=== PATIENT | female | born 1940 | race Caucasian/White ===

== ENCOUNTER 2016-10-08 20:35 | Emergency (ER) | payer MEDICARE, MEDICAID ==
[2016-10-08] MEDS ORDERED: Ondansetron 4 MG Tab.DIS PO ONE (20:42)
[2016-10-08 20:45] VITALS: BP 156/77
--- NOTE | 2016-10-08 21:03 | EDM.PDOC ---
ED HPI GI/ABDOMINAL - General Chief Complaint: Gastrointestinal Problem Stated Complaint: Vomiting, Nausea Time Seen by Provider: 10/08/16 20:39 Source of Information: Reports: Patient, Family History Limitations: Reports: No limitations - History of Present Illness INITIAL COMMENTS - FREE TEXT/NARRATIVE: This patient is a 76 year old female that presents to the ER. Patient reports that yesterday she was riding in the car and felt nauseated. She reports she vomtied x1. She reports she has had dry heaves since vomiting yesterday. Patient reports that she does have a chronic history of vomiting and nausea. She reports she takes Zofran at home because of this. However, today it did not work. She reports that her only complaint is nausea with dry heaves. She has not had dry heave while in ER. She does have emesis bag with her. Patient denies holman, dizziness, neck pain, stiffness, congestion, drainage, sore throat, cp, soa, abd pain, urinary/bowel changes, rashes, unilateral weaknesses, general weakness. Patient is full alert and oriented. Symptom Onset Date: 10/07/16 Timing/Duration: Reports: Day(s): (1) Severity: mild Associated Symptoms (-Female): Reports: denies other symptoms, nausea/ vomiting. Denies: chest pain, back pain, groin pain, shoulder pain, constipation, diarrhea, bloody stools, fever/chills, loss of appetite, malaise - Related Data Allergies/ADRs: Allergies Allergy/AdvReac Type Severity Reaction Status Date / Time acetaminophen AdvReac Vomiting Verified 10/08/16 21:09 [From Darvocet-N 100] Home Meds: Home Meds Aspirin [Halfprin] 81 mg PO DAILY 06/21/13 [History] Clopidogrel Bisulfate [Clopidogrel] 75 mg PO DAILY 06/21/13 [History] Docusate Sodium [Colace] 200 mg PO BID PRN 06/21/13 [History] Omeprazole 20 mg PO DAILY 06/21/13 [History] Phenytoin Sodium Extended [Dilantin] 100 mg PO BID 06/21/13 [History] Sertraline HCl 100 mg PO DAILY 06/21/13 [History] Furosemide 80 mg PO DAILY 09/09/14 [History] Pregabalin [Lyrica] 100 mg PO BID 09/09/14 [History] atorvaSTATin [Lipitor] 40 mg PO DAILY 09/09/14 [History] Cyanocobalamin (Vitamin B-12) [Vitamin B-12] 1 ml IM Q30D 05/10/15 [History] Nitroglycerin [Nitrostat] 0.4 mg SL Q5M PRN 05/10/15 [History] Ondansetron [Zofran] 4 mg PO Q6H PRN 05/10/15 [History] amLODIPine [Norvasc] 5 mg PO BEDTIME 05/10/15 [History] fentaNYL [Duragesic] 25 mcg TOP Q3D 05/10/15 [History] hydrOXYzine HCl [hydrOXYzine] 25 mg PO Q6H PRN 05/10/15 [History] rOPINIRole HCl [Requip] 0.5 mg PO TID 10/10/15 [History] Acetaminophen/HYDROcodone [[place] 325-5 MG] 1 - 2 tab PO Q4H PRN 11/05/15 [ History] traMADol HCl [Ultram] 50 mg PO Q6H PRN 11/05/15 [History] Budesonide [Pulmicort] 1 vial NEB QID 03/31/16 [History] Formoterol [Perforomist] 1 vial NEB QID PRN 03/31/16 [History] Propranolol HCl [Propranolol HCl ER] 60 mg PO DAILY 03/31/16 [History] Albuterol [Proventil Neb Soln] 1 vial INH Q6HR PRN 07/29/16 [History] Calcium Carb & Citrate/Vit D3 [Calcium + D3 ER Tablet] 1 ea PO DAILY 07/29/16 [ History] Zolpidem Tartrate [Ambien Cr] 12.5 mg PO BEDTIME 07/29/16 [History] Ubidecarenone [Coq-10] 1 cap PO DAILY 08/31/16 [History] Past Medical History Cardiovascular History: Reports: High cholesterol, Hypertension Other Cardiovascular History: pt reports a "heart condition" but unable to recall what it is. Has had a cardiac stent placed, heart cath 10-31-15 due to cp- -medical therapy; Respiratory History: Reports: COPD Other Respiratory History: saw Dr. Prakash on 03-19-16; Pulmonary rehab ordered , PFT done at that time; denies using oxygen at home Gastrointestinal History: Reports: GERD Musculoskeletal History: Reports: Back pain, chronic Other Musculoskeletal History: left knee surgery Neurological History: Reports: Parkinson's, Seizure, Other (see below) Other Neuro History: tremors of nervous system; says she has some dizziness at home, told Dr. Ennis Psychiatric History: Reports: Depression Other Psychiatric History: depression discussed; gets down with the fact that she cannot do what she wants to do; becomes more SOB at home and says it seems that she is not improving in that area; she used to walk outside, has not done that for years; does not go out socially much anymore; "I get down, but I would not do anything to myself." Dermatologic History: Reports: Eczema - Past Surgical History HEENT Surgical History: Reports: Tonsillectomy Other Respiratory Surgeries/Procedures: attended pulmonary rehab in 2015, did 6 visits, last visit 04-24-16; did not return, had the stomach flu and wasn't feeling well to return. Called recently to schedule rehab again; seeing Dr. Prakash in August, wants to get back to exercising. She feels that she is doing less at home. Her Parkinsons makes it difficult to walk up the steps to her apartment. Gets tired if she tries to vacuum. She feels more SOB; she says she eats well, however, she has trouble lifting the spoon to her mouth due to her parkinsons. She has some eye problems, only causes her a problem when she tries to read or when laying in bed, difficult to see plainly. Encouraged to attend pulmonary rehab regularly. Will discuss an OT consult with Dr. Ennis or with OT; GI Surgical History: Reports: Appendectomy, Cholecystectomy Female Surgical History: Reports: section, Hysterectomy Other Neurological Surgeries/Procedures: has had some dizziness at home-- discussed, especially re: safety. to get up slowly, says she has discussed this with Dr. Ennis Musculoskeletal Surgical History: Reports: Other (see below) Other Musculoskeletal Surgeries/Procedures:: 3 back surgeries since 1985 Social & Family History - Tobacco Use Smoking Status *Q: Former Smoker Years of Tobacco use: 57 Used Tobacco, but Quit: Yes Month Tobacco Last Used: 2011 Second Hand Smoke Exposure: Yes - Alcohol Use Days Per Week of Alcohol Use: 0 - Recreational Drug Use Recreational Drug Use: No ED ROS GENERAL - Review of Systems Review Of Systems: See Below Constitutional: Reports: no symptoms HEENT: Reports: No symptoms Respiratory: Reports: No Symptoms Cardiovascular: Reports: No symptoms Endocrine: Reports: no symptoms GI/Abdominal: Reports: Nausea, Vomiting (x1 yesterday, none today. Dry Heaving on occasion today. ). Denies: Abdominal pain, Constipation, Diarrhea : Reports: no symptoms Musculoskeletal: Reports: no symptoms Skin: Reports: no symptoms Neurological: Reports: No Symptoms Psychiatric: Reports: No symptoms Hematologic/Lymphatic: Reports: no symptoms Immunologic: Reports: no symptoms ED EXAM, GI/ABD - Physical Exam Exam: See Below Exam Limited By: No limitations General Appearance: alert, WD/WN, no apparent distress Eyes: bilateral: normal appearance Ears: normal external exam, normal canal, hearing grossly normal, normal TMs Nose: normal inspection, normal mucosa, no blood Throat/Mouth: Normal inspection, Normal lips, Normal gums, Normal oropharynx, Normal voice, No airway compromise Head: atraumatic, normocephalic Neck: normal inspection, supple, non-tender, full range of motion Respiratory/Chest: no respiratory distress, lungs clear, normal breath sounds, no accessory muscle use Cardiovascular: normal peripheral pulses, regular rate, rhythm, no edema, no gallop, no JVD, no murmur, no rub GI/Abdominal: normal bowel sounds, soft, non tender, no organomegaly, no distention, no abnormal bruit, no mass. No: tenderness, distention, guarding, rebound, rigidity, aortic pulsation Back Exam: normal inspection, full range of motion. No: CVA tenderness (L), CVA tenderness (R) Extremities: normal inspection, normal range of motion, non-tender, no pedal edema, normal capillary refill Neurological: alert, oriented, normal cognition Psychiatric: normal affect, normal mood Skin Exam: Warm, Dry, Intact, Normal color, No rash Lymphatic: no adenopathy EKG INTERPRETATION EKG Date: 10/08/16 Time: 20:55 Rhythm: NSR Rate (beats/min): 60 ST-T: normal QT: prolonged Comparison: NA - no prior EKG Course - Vital Signs Last Recorded V/S: Last Vital Signs Temp 98.7 F 10/08/16 20:42 Pulse 68 10/08/16 20:42 Resp 20 10/08/16 20:42 BP 156/77 H 10/08/16 20:42 Pulse Ox 92 L 10/08/16 20:42 - Orders/Labs/Meds Orders: Active Orders 24 hr Category Date Time Status EKG Documentation Completion [RC] STAT Care 10/08/16 20:39 Active Promethazine [Phenergan] 12.5 mg Med 10/08/16 21:14 Active Sodium Chloride 0.9% [Normal Saline] 50 ml IV NOW Medication Orders Promethazine HCl 12.5 mg/ (Sodium Chloride) 50.5 mls @ 100 mls/hr IV NOW STA Stop: 10/08/16 21:44 Labs: Laboratory Tests 10/08/16 10/08/16 10/08/16 Range/Units 21:00 21:05 21:20 WBC 6.8 (5.0-10.0) 10^3/uL RBC 4.61 (4.00-5.50) 10^6/uL Hgb 14.0 (12.0-16.0) g/dL Hct 43.3 (37.0-47.0) % MCV 93.9 (82.0-94.0) fL MCH 30.4 (27.0-32.0) pg MCHC 32.3 L (33.0-38.0) g/dL RDW Coeff of [place] 13.0 (11.0-15.0) % Plt Count 314 (150-400) 10^3/uL Neut % (Auto) 50.5 (35-85) % Lymph % (Auto) 34.3 (10-55) % [place] % (Auto) 12.4 (0-16) % Eos % (Auto) 2.5 (0-5) % Baso % (Auto) 0.3 (0-3) % Neut # (Auto) 3.41 (1.80-7.00) 10^3/uL Lymph # (Auto) 2.32 (1.00-4.80) 10^3/uL [place] # (Auto) 0.84 H (0.00-0.80) 10^3/uL Eos # (Auto) 0.17 (0.00-0.45) 10^3/uL Baso # (Auto) 0.02 10^3/uL Sodium 142 (136-145) mEq/L Potassium 4.1 (3.5-5.0) mEq/L Chloride 106 (98-106) mEq/L Carbon Dioxide 25 (21-32) mmol/L BUN 9 (7-18) mg/dL Creatinine 0.7 (0.6-1.0) mg/dL Est Cr Clr Drug Dosing 49.88 mL/min Estimated GFR (MDRD) > 60 (>=60) mL/min Glucose 119 H (75-99) mg/dL Calcium 8.5 (8.4-10.1) mg/dL Total Bilirubin 0.3 (0.0-1.0) mg/dL AST 23 (15-37) U/L ALT 24 (12-78) U/L Alkaline Phosphatase 224 H (46-116) U/L Troponin I 0.054 (0.00-0.06) ng/mL Total Protein 7.0 (6.4-8.2) g/dL Albumin 3.7 (3.4-5.0) g/dL Urine Color Yellow (YELLOW) Urine Appearance Clear (CLEAR) Urine pH 5.5 (4.5-8.0) Ur Specific [place] 1.018 (1.003-1.020) Urine Protein Negative (NEGATIVE) mg/dL Urine Glucose (UA) Negative (NEGATIVE) mg/dL Urine Ketones Negative (NEGATIVE) mg/dL Urine Occult Blood Small H (NEGATIVE) Urine Nitrite Negative (NEGATIVE) Urine Bilirubin Negative (NEGATIVE) Urine Urobilinogen 0.2 (0.2-1.0) EU/dL Ur Leukocyte Esterase Trace H (NEGATIVE) Urine RBC 0-5 (0-5) /HPF Urine WBC 5-10 H (0-5) /HPF Ur Squamous Epith Cells Few H (NOT SEEN) /HPF Urine Bacteria Occasional H (NOT SEEN) /HPF Urine Mucus Occasional H (NOT SEEN) /HPF Meds: Medications Generic Name Dose Route Start Last Admin Trade Name Freq PRN Reason Stop Dose Admin Promethazine HCl 12.5 mg/ 50.5 mls @ 100 mls/hr 10/08/16 21:14 Sodium Chloride IV 10/08/16 21:44 NOW STA Discontinued Medications Generic Name Dose Route Start Last Admin Trade Name Freq PRN Reason Stop Dose Admin Ceftriaxone Sodium 1 gm 10/08/16 21:31 Rocephin IVPUSH 10/08/16 21:32 ONETIME ONE Ondansetron HCl 4 mg 10/08/16 20:42 10/08/16 21:15 Zofran Odt PO 10/08/16 20:43 Not Given ONETIME ONE Departure - Departure Time of Disposition: 21:32 Disposition: Home, Self-Care 01 Condition: good Clinical Impression: Nausea, UTI, Urinary tract infectious disease Instructions: Nausea and Vomiting, Adult, [id number], Urinary Tract Infection , Adult Forms: ED Department Discharge Additional Instructions: Followup with your primary care provider Return to the ER for worsening of condition or any emergent concerns Bactrim DS 1 pill twice a day for 7 days #14 no refill Increase fluids Take your Zofran at home for nausea - My Orders Last 24 Hours: My Active Orders 10/08/16 20:39 EKG Documentation Completion [RC] STAT 10/08/16 21:14 Promethazine [Phenergan] 12.5 mg Sodium Chloride 0.9% [Normal Saline] 50 ml IV NOW - Assessment/Plan Last 24 Hours: My Active Orders 10/08/16 20:39 EKG Documentation Completion [RC] STAT 10/08/16 21:14 Promethazine [Phenergan] 12.5 mg Sodium Chloride 0.9% [Normal Saline] 50 ml IV NOW Plan: PLEASE SEE RN NOTE FOR PFSH. Patient has no abdominal pain, tenderness, fever, active vomiting, no elevated wbc; therefore will not CT abdomen. Patient reports she does get this frequently and has Zofran at home because of this, but sometimes it does not work per patient. Patient reports she has had phenergan in the past before and it has worked well for her. Patient understands risks with this medication.
[2016-10-08] MEDS ORDERED: Promethazine 12.5 MG in Sodium Chloride 0.9% 50 ML IV STA (21:14)
[2016-10-08 21:23] LABS: CHLORIDE,CL 106 mEq/L (98-106); SODIUM,NA 142 mEq/L (136-145)
[2016-10-08] MEDS ORDERED: cefTRIAXone 1 GM Vial IVPUSH ONE (21:31)
[2016-10-08] MEDS ORDERED: cefTRIAXone 1 GM Vial IM ONE (21:51)
[2016-10-08] MEDS ORDERED: Promethazine 25 MG Tab PO ONE (21:52)
[2016-10-08] MEDS ORDERED: Lidocaine 1% 20 ML MDV ONE (21:53)
[2016-10-08] MEDS ORDERED: Lidocaine 1% 30 ML SDV INJECT ONE (22:10)
== END 2016-10-08 22:26 | disposition home or self-care (01) ==
LOC: CC.ED 20:35
DX: N39.0 Urinary tract infection, site not specified (principal); R11.2 Nausea with vomiting, unspecified; E78.00 Pure hypercholesterolemia, unspecified; I10 Essential (primary) hypertension; K21.9 Gastro-esophageal reflux disease without esophagitis; F32.9 Major depressive disorder, single episode, unspecified; Z98.890 Other specified postprocedural states; Z88.8 Allergy status to other drugs, medicaments and biological substances; Z79.82 Long term (current) use of aspirin; Z79.899 Other long term (current) drug therapy; Z87.891 Personal history of nicotine dependence
CPT/HCPCS: 36415; 80053; 81001; 84484; 85025; 93005; 96372; 99284; A9270; J0696; 93010

== ENCOUNTER 2017-08-02 14:22 | Inpatient (IN) | payer MEDICARE, MEDICAID ==
[2017-08-02 15:29] LABS: CHLORIDE,CL 105 mEq/L (98-106); SODIUM,NA 142 mEq/L (136-145)
[2017-08-02] MEDS ORDERED: Calcium Gluconate 10% 1 GM/10 ML SDV IV ONE (16:00)
[2017-08-02] MEDS ORDERED: Sodium Chloride 0.9% 10 ML Syringe FLUSH PRN (16:25)
[2017-08-02] MEDS ORDERED: Calcium Gluconate 10% 1 GM/10 ML SDV IVPUSH ONE ×2 (16:27→21:31)
[2017-08-02] MEDS ORDERED: Enoxaparin 30 MG/0.3 ML Syringe SUBCUT SCH (16:30)
[2017-08-02] MEDS ORDERED: Docusate Sodium 100 MG Cap PO PRN (16:36)
[2017-08-02] MEDS ORDERED: fentaNYL 25 MCG/HR Transdermal Patch TOP SCH (16:45)
[2017-08-02] MEDS ORDERED: Ondansetron 4 MG Tab.DIS PO PRN (17:30)
[2017-08-02] MEDS: Phenytoin 100 MG Cap.ER PO SCH (19:44)
[2017-08-02] MEDS: Formoterol/Mometasone 200-5 MCG 8.8 GM Inhaler IH SCH (19:44)
[2017-08-02] MEDS: Gabapentin 300 MG Cap PO SCH (19:44)
[2017-08-02] MEDS: Calcium Carbonate/Vitamin D3 1250 MG-200 Unit Tab PO SCH (19:44)
[2017-08-02] MEDS ORDERED: rOPINIRole 1 MG Tab PO SCH (20:00)
[2017-08-02 20:23] LABS: CHLORIDE,CL 106 mEq/L (98-106); SODIUM,NA 143 mEq/L (136-145)
[2017-08-03] MEDS: Pantoprazole 40 MG Tab.CR PO SCH (06:04)
[2017-08-03] MEDS: Aspirin 81 MG Tab.EC PO SCH (07:28)
[2017-08-03] MEDS: atorvaSTATin 20 MG Tab PO SCH (07:28)
[2017-08-03] MEDS: rOPINIRole 0.25 MG Tab PO SCH ×2 (07:28→14:21)
[2017-08-03] MEDS: Phenytoin 100 MG Cap.ER PO SCH ×2 (07:28→19:45)
[2017-08-03] MEDS: Folic Acid 1 MG Tab PO SCH (07:29)
[2017-08-03] MEDS: Calcium Carbonate/Vitamin D3 1250 MG-200 Unit Tab PO SCH ×2 (07:29→19:45)
[2017-08-03] MEDS: Gabapentin 300 MG Cap PO SCH ×2 (07:29→19:45)
[2017-08-03] MEDS: Sertraline 100 MG Tab PO SCH (07:29)
[2017-08-03] MEDS: Formoterol/Mometasone 200-5 MCG 8.8 GM Inhaler IH SCH ×2 (07:31→19:45)
[2017-08-03] MEDS ORDERED: Non-Formulary Medication 1 Each (Potassium [Potassium] 99 MG) PO SCH (08:00)
[2017-08-03 08:09] LABS: CHLORIDE,CL 108 mEq/L (98-106); SODIUM,NA 145 mEq/L (136-145)
[2017-08-03] MEDS ORDERED: Calcium Gluconate 1 GM in Sodium Chloride 0.9% 100 ML IV ONE (08:34)
[2017-08-03] MEDS ORDERED: Budesonide 0.5 MG/2 ML Neb Susp INH PRN (11:53)
[2017-08-03] MEDS ORDERED: Acetaminophen/HYDROcodone 325-5 MG Tab PO PRN (13:00)
[2017-08-03] MEDS: Acetaminophen 325 MG Tab PO PRN (14:21)
[2017-08-03] MEDS ORDERED: Enoxaparin 30 MG/0.3 ML Syringe SUBCUT SCH (16:00)
[2017-08-03] MEDS ORDERED: Tiotropium Inhaler 18 MCG Inhalation Powder Cap Kit of 5 INH SCH (16:00)
[2017-08-03 16:09] LABS: CHLORIDE,CL 109 mEq/L (98-106); SODIUM,NA 144 mEq/L (136-145)
[2017-08-03] MEDS ORDERED: rOPINIRole 1 MG Tab PO SCH (20:00)
[2017-08-03] MEDS ORDERED: Non-Formulary Medication 1 Each (Budesonide/Formoterol 2 INH) INH SCH (20:00)
--- NOTE | 2017-08-03 20:57 | PCM.PN ---
- General Info Date of Service: 08/03/17 Admission Dx/Problem (Free Text): Hypocalcemia Functional Status: Reports: Pain Controlled, Tolerating Diet, Ambulating - Review of Systems General: Reports: Weakness, Fatigue HEENT: Reports: No Symptoms Pulmonary: Denies: Shortness of Breath, Cough Cardiovascular: Denies: Chest Pain, Edema, Lightheadedness Gastrointestinal: Denies: Abdominal Pain, Nausea, Vomiting Genitourinary: Reports: No Symptoms Neurological: Reports: Numbness (feels generalized numbness throughout) - Patient Data Vitals - Most Recent: Last Vital Signs Temp 97.8 F 08/03/17 19:48 Pulse 77 08/03/17 19:48 Resp 20 08/03/17 19:48 BP 122/61 08/03/17 19:48 Pulse Ox 93 L 08/03/17 19:48 Weight - Most Recent: 166 lb 1.6 oz I&O - Last 24 Hours: Intake & Output 08/03/17 08/03/17 08/03/17 06:59 14:59 22:59 Intake Total 220 900 Output Total 300 200 600 Balance -80 -200 300 Lab Results Last 24 Hours: Laboratory Results - last 24 hr 08/03/17 08/03/17 Range/Units 07:55 15:55 Sodium 145 144 (136-145) mEq/L Potassium 3.3 L 3.7 (3.5-5.0) mEq/L Chloride 108 H 109 H (98-106) mEq/L Carbon Dioxide 25 27 (21-32) mmol/L BUN 11 11 (7-18) mg/dL Creatinine 0.6 0.7 (0.6-1.0) mg/dL Est Cr Clr Drug Dosing 57.30 49.11 mL/min Estimated GFR (MDRD) > 60 > 60 (>=60) mL/min Glucose 123 H 111 H (75-99) mg/dL Calcium 6.4 L* 6.6 L* (8.4-10.1) mg/dL Med Orders - Current: Current Medications Acetaminophen (Tylenol) 650 mg PO Q4H PRN PRN Reason: Pain Last Admin: 08/03/17 14:21 Dose: 650 mg Hydrocodone Bitart/Acetaminophen ([place] 325-5 Mg) 1 tab PO Q4H PRN PRN Reason: Pain Aspirin (Halfprin) 81 mg PO DAILY [facility] Last Admin: 08/03/17 07:28 Dose: 81 mg Atorvastatin Calcium (Lipitor) 40 mg PO DAILY [facility] Last Admin: 08/03/17 07:28 Dose: 40 mg Budesonide (Pulmicort) 0.5 mg INH BID PRN PRN Reason: Shortness of Breath Calcium Carbonate (Calcium Carbonate/Vitamin D 1250 Mg-200 Unit) 1 tab PO BID [facility] Last Admin: 08/03/17 19:45 Dose: 1 tab Docusate Sodium (Colace) 200 mg PO BID PRN PRN Reason: Constipation Enoxaparin Sodium (Lovenox) 30 mg SUBCUT DAILY@1600 [facility] Last Admin: 08/03/17 15:13 Dose: 30 mg Folic Acid (Folic Acid) 0.5 mg PO DAILY [facility] Last Admin: 08/03/17 07:29 Dose: 0.5 mg Gabapentin (Neurontin) 300 mg PO BID [facility] Last Admin: 08/03/17 19:45 Dose: 300 mg Mometasone Furoate/Formoterol Fumar (Dulera 200-5 Mcg) 2 puff IH BID [facility] Last Admin: 08/03/17 19:45 Dose: 2 puff Non-Formulary Medication (Potassium [Potassium]) 99 mg PO DAILY [facility] Ondansetron HCl (Zofran Odt) 4 mg PO Q6H PRN PRN Reason: NAUSEA Last Admin: 08/03/17 07:30 Dose: 4 mg Pantoprazole Sodium (Protonix) 40 mg PO ACBREAKFAST [facility] Last Admin: 08/03/17 06:04 Dose: 40 mg Phenytoin Sodium (Phenytoin) 100 mg PO BID [facility] Last Admin: 08/03/17 19:45 Dose: 100 mg Ropinirole HCl (Requip) 0.5 mg PO BID@0800,1500 [facility] Last Admin: 08/03/17 14:21 Dose: 0.5 mg Ropinirole HCl (Requip) 2 mg PO BEDTIME [facility] Last Admin: 08/03/17 19:45 Dose: 2 mg Sertraline HCl (Zoloft) 100 mg PO DAILY [facility] Last Admin: 08/03/17 07:29 Dose: 100 mg Sodium Chloride (Saline Flush) 10 ml FLUSH ASDIRECTED PRN PRN Reason: Keep Vein Open Tiotropium [place] (Spiriva Handihaler) 0 mcg INH 1600 [facility] Last Admin: 08/03/17 15:16 Dose: 1 inhaler Discontinued Medications Calcium Gluconate (Calcium Gluconate) 0.3 gm IV ONETIME ONE Stop: 08/02/17 16:01 Last Admin: 08/02/17 16:11 Dose: 0.3 gm Calcium Gluconate (Calcium Gluconate) 1 gm IVPUSH ONETIME ONE Stop: 08/02/17 16:28 Last Admin: 08/02/17 17:43 Dose: 1 gm Calcium Gluconate (Calcium Gluconate) 1 gm IVPUSH ONETIME ONE Stop: 08/02/17 21:32 Last Admin: 08/02/17 22:35 Dose: 1 gm Enoxaparin Sodium (Lovenox) 30 mg SUBCUT Q24H [facility] Last Admin: 08/02/17 17:41 Dose: 30 mg Fentanyl (Duragesic) 25 mcg TOP Q3D [facility] Stop: 08/03/17 00:13 Last Admin: 08/03/17 01:00 Dose: Not Given Calcium Gluconate 1 gm/ Sodium (Chloride) 110 mls @ 100 mls/hr IV NOW ONE Stop: 08/03/17 09:39 Last Admin: 08/03/17 09:27 Dose: 100 mls/hr Calcium Gluconate 1.5 gm/ (Sodium Chloride) 115 mls @ 100 mls/hr IV NOW STA Stop: 08/03/17 18:11 Last Admin: 08/03/17 17:18 Dose: 100 mls/hr Non-Formulary Medication (Budesonide/Formoterol) 2 inh INH BID [facility] Ropinirole HCl (Requip) 1 mg PO BEDTIME [facility] Last Admin: 08/02/17 19:43 Dose: 1 mg - Exam General: Alert, Oriented HEENT: Mucous Membr. Moist/[place] Neck: Supple Lungs: Clear to Auscultation, Normal Respiratory Effort Cardiovascular: Regular Rate, Regular Rhythm GI/Abdominal Exam: Normal Bowel Sounds, Soft, Non-Tender Extremities: Normal Inspection, No Pedal Edema Skin: Warm, Dry Neurological: No New Focal Deficit - Problem List & Annotations (1) Hypocalcemia SNOMED Code(s): 8480938 Code(s): E83.51 - HYPOCALCEMIA Status: Acute Priority: High Current Visit: Yes - Problem List Review Problem List Initiated/Reviewed/Updated: Yes - My Orders Last 24 Hours: My Active Orders 08/03/17 11:53 Budesonide [Pulmicort] 0.5 mg INH BID PRN 08/03/17 13:00 Acetaminophen/HYDROcodone [[place] 325-5 MG] 1 tab PO Q4H PRN 08/03/17 13:12 Acetaminophen [Tylenol] 650 mg PO Q4H PRN 08/04/17 05:17 CMP [COMPREHENSIVE METABOLIC PN,CMP] [CHEM] Routine - Assessment Assessment:: hypocalcemia - Plan Plan:: Patient states still feeling numb all over still. Feels weak. Denies shortness of breath or muscle cramping. Calcium still low today at 6.4, has received 2.3 gm of IV calcium gluconate thus far in addition to oral calcium. Other labs are stable. Appetite still poor. Will give additional 1 gm of Calcium, repeat labs at 4. Will follow closely as remains yet symptomatic. Inappropriate for discharge due to ongoing hypocalcemia.
[2017-08-04] MEDS: Acetaminophen 325 MG Tab PO PRN (00:48)
[2017-08-04] MEDS: Pantoprazole 40 MG Tab.CR PO SCH (06:09)
[2017-08-04 07:21] LABS: CHLORIDE,CL 108 mEq/L (98-106); SODIUM,NA 144 mEq/L (136-145)
[2017-08-04] MEDS: atorvaSTATin 20 MG Tab PO SCH (07:21)
[2017-08-04] MEDS: Gabapentin 300 MG Cap PO SCH (07:21)
[2017-08-04] MEDS: Sertraline 100 MG Tab PO SCH (07:22)
[2017-08-04] MEDS: rOPINIRole 0.25 MG Tab PO SCH (07:22)
[2017-08-04] MEDS: Calcium Carbonate/Vitamin D3 1250 MG-200 Unit Tab PO SCH (07:23)
[2017-08-04] MEDS: Aspirin 81 MG Tab.EC PO SCH (07:23)
[2017-08-04] MEDS: Phenytoin 100 MG Cap.ER PO SCH (07:23)
[2017-08-04] MEDS: Formoterol/Mometasone 200-5 MCG 8.8 GM Inhaler IH SCH (07:25)
[2017-08-04] MEDS: Folic Acid 1 MG Tab PO SCH (07:34)
[2017-08-04 08:27] VITALS: BP 140/78
--- NOTE | 2017-08-05 13:58 | PCM.DCSUM1 ---
Discharge Summary - Hospital Course Free Text/Narrative:: Patient admitted by Dr. Ennis with hypocalcemia. Presented to the clinic with complaints of numbness all over for 3 days. Not really feeling weak, just numb. Daughter had felt she was more short of breath than usual and noted more activity intolerance. She had a work up in the clinic and was found to have a calcium of 5.9. Admitted for IV calcium replacement. - Discharge Data Discharge Date: 08/04/17 Discharge Disposition: Home, Self-Care 01 Condition: Good - Discharge Diagnosis/Problem(s) (1) Hypocalcemia SNOMED Code(s): 7586022 ICD Code: E83.51 - HYPOCALCEMIA Status: Acute Priority: High - Patient Summary/Data Complications: none Hospital Course: Patient is feeling good today. States numbness is gone. She has been ambulating short distances around the room, tolerating well. Appetite has returned. She has had no cardiac/telemetry changes. Patient was given a total of 3.3 gm of IV calcium, in addition to oral, over the last 2 days, now calcium up to 7.4. Medications were thoroughly checked while she was here due to miscommunication between clinic/hospital/pharmacy and public health. Daughter states she doesn't take her meds accurately. Will stop her pulmicort inhalers and nebs as she is on Symbicort. Stop Lyrica and continue gabapentin. Stop Tramadol due to history of seizures. Increase her oral calcium with vitamin D to TID. - Patient Instructions Diet: Usual Diet as Tolerated Activity: As Tolerated - Discharge Plan Prescriptions/Med Rec: Calcium Carbonate/Vitamin D3 [Calcium Carbonate/Vitamin D 1250 MG-200 Unit] 1 tab PO TID #90 tablet Home Medications: Home Meds Aspirin [Halfprin] 81 mg PO DAILY 06/21/13 [History] Docusate Sodium [Colace] 200 mg PO BID PRN 06/21/13 [History] Omeprazole 20 mg PO DAILY 06/21/13 [History] Phenytoin Sodium Extended [Dilantin] 100 mg PO BID 06/21/13 [History] Sertraline HCl 100 mg PO BEDTIME 06/21/13 [History] Furosemide 80 mg PO DAILY 09/09/14 [History] atorvaSTATin [Lipitor] 40 mg PO BEDTIME 09/09/14 [History] Nitroglycerin [Nitrostat] 0.4 mg SL Q5M PRN 05/10/15 [History] Ondansetron [Zofran] 4 mg PO Q6H PRN 05/10/15 [History] amLODIPine [Norvasc] 5 mg PO BEDTIME 05/10/15 [History] rOPINIRole HCl [Requip] 0.5 mg PO BID 10/10/15 [History] Acetaminophen/HYDROcodone [[place] 325-5 MG] 1 - 2 tab PO Q4H PRN 11/05/15 [ History] Albuterol [Proventil Neb Soln] 1 vial INH Q6HR PRN 07/29/16 [History] Cyanocobalamin (Vitamin B12) [Vitamin B12] 500 mcg PO DAILY 08/02/17 [History] Folic Acid 400 mcg PO DAILY 08/02/17 [History] Gabapentin [Neurontin] 300 mg PO BID 08/02/17 [History] Potassium 99 mg PO DAILY 08/02/17 [History] rOPINIRole HCl [Requip] 1 mg PO BEDTIME 08/02/17 [History] Budesonide [Pulmicort] 1 inh INH BID PRN 08/03/17 [History] Budesonide/Formoterol [Symbicort 160-4.5 MCG] 2 inh INH BID 08/03/17 [History] Calcium Carbonate/Vitamin D3 [Calcium Carbonate/Vitamin D 1250 MG-200 Unit] 1 tab PO TID #90 tablet 08/04/17 [Rx] Patient Handouts: Hypocalcemia, Adult Referrals: Mikael Ennis MD [Primary Care Provider] - (Follow up with Dr. Ennis in one week. Labs prior to visit) - Discharge Summary/Plan Comment DC Time >30 min.: No Discharge Summary/Plan Comment: Discharge home Stop pulmicort inhaler and nebs continue Symbicort Stop Lyrica Stop Tramadol Increase calcium with vitamin D to TID Follow up with Dr. Ennis in a week and have labs done to recheck calcium prior to visit - General Info Date of Service: 08/04/17 Admission Dx/Problem (Free Text: Hypocalcemia Functional Status: Reports: Pain Controlled, Tolerating Diet, Ambulating - Review of Systems General: Denies: Fever, Weakness, Fatigue HEENT: Reports: No Symptoms Pulmonary: Reports: Shortness of Breath. Denies: Cough, Sputum Cardiovascular: Denies: Chest Pain, Edema, Lightheadedness Gastrointestinal: Denies: Abdominal Pain, Nausea, Vomiting Genitourinary: Denies: Dysuria Musculoskeletal: Reports: No Symptoms Skin: Reports: No Symptoms Neurological: Denies: Numbness, Weakness - Patient Data Vitals - Most Recent: Last Vital Signs Temp 96.5 F 08/04/17 08:00 Pulse 73 08/04/17 08:00 Resp 20 08/04/17 08:00 BP 140/78 08/04/17 08:00 Pulse Ox 90 L 08/04/17 09:10 Weight - Most Recent: 166 lb 1.6 oz Med Orders - Current: Current Medications Discontinued Medications Acetaminophen (Tylenol) 650 mg PO Q4H PRN PRN Reason: Pain Last Admin: 08/04/17 00:48 Dose: 650 mg Hydrocodone Bitart/Acetaminophen ([place] 325-5 Mg) 1 tab PO Q4H PRN PRN Reason: Pain Aspirin (Halfprin) 81 mg PO DAILY [facility] Last Admin: 08/04/17 07:23 Dose: 81 mg Atorvastatin Calcium (Lipitor) 40 mg PO DAILY [facility] Last Admin: 08/04/17 07:21 Dose: 40 mg Budesonide (Pulmicort) 0.5 mg INH BID PRN PRN Reason: Shortness of Breath Last Admin: 08/04/17 07:24 Dose: 0.5 mg Calcium Carbonate (Calcium Carbonate/Vitamin D 1250 Mg-200 Unit) 1 tab PO BID [facility] Last Admin: 08/04/17 07:23 Dose: 1 tab Calcium Gluconate (Calcium Gluconate) 0.3 gm IV ONETIME ONE Stop: 08/02/17 16:01 Last Admin: 08/02/17 16:11 Dose: 0.3 gm Calcium Gluconate (Calcium Gluconate) 1 gm IVPUSH ONETIME ONE Stop: 08/02/17 16:28 Last Admin: 08/02/17 17:43 Dose: 1 gm Calcium Gluconate (Calcium Gluconate) 1 gm IVPUSH ONETIME ONE Stop: 08/02/17 21:32 Last Admin: 08/02/17 22:35 Dose: 1 gm Docusate Sodium (Colace) 200 mg PO BID PRN PRN Reason: Constipation Enoxaparin Sodium (Lovenox) 30 mg SUBCUT Q24H [facility] Last Admin: 02/26/18 17:41 Dose: 30 mg Enoxaparin Sodium (Lovenox) 30 mg SUBCUT DAILY@1600 [facility] Last Admin: 08/03/17 15:13 Dose: 30 mg Fentanyl (Duragesic) 25 mcg TOP Q3D [place] Stop: 08/03/17 00:13 Last Admin: 08/03/17 01:00 Dose: Not Given Folic Acid (Folic Acid) 0.5 mg PO DAILY [facility] Last Admin: 08/04/17 07:34 Dose: 0.5 mg Gabapentin (Neurontin) 300 mg PO BID [facility] Last Admin: 08/04/17 07:21 Dose: 300 mg Calcium Gluconate 1 gm/ Sodium (Chloride) 110 mls @ 100 mls/hr IV NOW ONE Stop: 08/03/17 09:39 Last Admin: 08/03/17 09:27 Dose: 100 mls/hr Calcium Gluconate 1.5 gm/ (Sodium Chloride) 115 mls @ 100 mls/hr IV NOW STA Stop: 08/03/17 18:11 Last Admin: 08/03/17 17:18 Dose: 100 mls/hr Mometasone Furoate/Formoterol Fumar (Dulera 200-5 Mcg) 2 puff IH BID [facility] Last Admin: 08/04/17 07:25 Dose: 2 puff Non-Formulary Medication (Potassium [Potassium]) 99 mg PO DAILY [facility] Non-Formulary Medication (Budesonide/Formoterol) 2 inh INH BID [facility] Ondansetron HCl (Zofran Odt) 4 mg PO Q6H PRN PRN Reason: NAUSEA Last Admin: 08/03/17 07:30 Dose: 4 mg Pantoprazole Sodium (Protonix) 40 mg PO ACBREAKFAST [facility] Last Admin: 08/04/17 06:09 Dose: 40 mg Phenytoin Sodium (Phenytoin) 100 mg PO BID [facility] Last Admin: 08/04/17 07:23 Dose: 100 mg Ropinirole HCl (Requip) 0.5 mg PO BID@0800,1500 [facility] Last Admin: 08/04/17 07:22 Dose: 0.5 mg Ropinirole HCl (Requip) 1 mg PO BEDTIME [facility] Last Admin: 08/02/17 19:43 Dose: 1 mg Ropinirole HCl (Requip) 2 mg PO BEDTIME [facility] Last Admin: 08/03/17 19:45 Dose: 2 mg Sertraline HCl (Zoloft) 100 mg PO DAILY [facility] Last Admin: 08/04/17 07:22 Dose: 100 mg Sodium Chloride (Saline Flush) 10 ml FLUSH ASDIRECTED PRN PRN Reason: Keep Vein Open Tiotropium Pioneer (Spiriva Handihaler) 0 mcg INH 1600 [facility] Last Admin: 08/03/17 15:16 Dose: 1 inhaler - Exam General: Reports: Alert, Oriented HEENT: Reports: Mucous Membr. Moist/[place] Neck: Reports: Supple Lungs: Reports: Clear to Auscultation, Normal Respiratory Effort Cardiovascular: Reports: Regular Rate, Regular Rhythm GI/Abdominal Exam: Normal Bowel Sounds, Soft, Non-Tender Extremities: Normal Inspection, No Pedal Edema Skin: Reports: Warm, Dry Neurological: Reports: No New Focal Deficit *Q Meaningful Use (DIS) - VTE *Q VTE Criteria *Q: - Stroke *Q Stroke Criteria *Q: - AMI *Q AMI Criteria *Q:
== END 2017-08-04 11:30 | disposition home or self-care (01) | DRG 641 ==
LOC: CC.FCMC 14:22 → CC.MS 14:22 → UNDOADMIN 15:08 → CC.MS 15:08
PROVIDERS: ADMIT Family Medicine; ATTEND Family Medicine
DX: E83.51 Hypocalcemia (principal); R20.0 Anesthesia of skin; R06.02 Shortness of breath; J44.9 Chronic obstructive pulmonary disease, unspecified; F32.9 Major depressive disorder, single episode, unspecified; K21.9 Gastro-esophageal reflux disease without esophagitis; E78.5 Hyperlipidemia, unspecified; I10 Essential (primary) hypertension; G47.00 Insomnia, unspecified; M16.9 Osteoarthritis of hip, unspecified; M17.10 Unilateral primary osteoarthritis, unspecified knee; M81.0 Age-related osteoporosis without current pathological fracture; R25.1 Tremor, unspecified; Z88.0 Allergy status to penicillin; Z88.2 Allergy status to sulfonamides; Z88.8 Allergy status to other drugs, medicaments and biological substances; Z79.82 Long term (current) use of aspirin; Z79.899 Other long term (current) drug therapy; Z95.5 Presence of coronary angioplasty implant and graft; Z87.891 Personal history of nicotine dependence
CPT/HCPCS: 36415; 71046; 72040; 80053; 82607; 83735; 83880; 84443; 84484; 85025; 85379; 93005; J0610; 80048; 82306; 84100; 93010; A9270-GY; J1650; J7050

== ENCOUNTER 2017-12-27 20:22 | Emergency (ER) | payer MEDICARE, MEDICAID ==
[2017-12-27 20:36] VITALS: BP 186/84
--- NOTE | 2017-12-27 21:03 | EDM.PDOC ---
ED HPI GENERAL MEDICAL PROBLEM - General Chief Complaint: Head Injury Stated Complaint: fall with head injury Time Seen by Provider: 12/27/17 20:45 Source of Information: Reports: Patient History Limitations: Reports: No Limitations - History of Present Illness INITIAL COMMENTS - FREE TEXT/NARRATIVE: Was brought in by EMS after fall. Was leaving daughters house when she fell and hit the floor. She thinks that she was able to grab onto the car before falling to the ground to slow her some. She does complain of pain to the shoulders bilaterally, knees, and has a hematoma to the right forehead. Small abrasions to the right forehead, right knee and small one to the right hand. She did not lose consciousness. Location: Reports: Head, Upper Extremity, Left, Upper Extremity, Right, Lower Extremity, Left, Lower Extremity, Right Quality: Reports: Throbbing Worsens with: Reports: Movement Treatments STEEL FABRICATOR: Reports: Other (see below) Other Treatments STEEL FABRICATOR: towel to area for bleeding Headache Pain Score (Numeric/FACES): 9 Bilateral Shoulder Pain Score (Numeric/FACES): 9 - Related Data Allergies Allergy/AdvReac Type Severity Reaction Status Date / Time ketorolac [From Toradol] Allergy Vomiting Verified 12/27/17 20:38 Penicillins Allergy Rash Verified 12/27/17 20:38 propoxyphene Allergy Vomiting Verified 12/27/17 20:38 [From Darvocet-N 100] Sulfa (Sulfonamide Allergy Rash Verified 12/27/17 20:38 Antibiotics) Home Meds: Home Meds Aspirin [Halfprin] 81 mg PO DAILY 06/21/13 [History] Docusate Sodium [Colace] 200 mg PO BID PRN 06/21/13 [History] Omeprazole 20 mg PO DAILY 06/21/13 [History] Phenytoin Sodium Extended [Dilantin] 100 mg PO BID 06/21/13 [History] Sertraline HCl 100 mg PO BEDTIME 06/21/13 [History] Furosemide 80 mg PO DAILY 09/09/14 [History] atorvaSTATin [Lipitor] 40 mg PO BEDTIME 09/09/14 [History] Nitroglycerin [Nitrostat] 0.4 mg SL Q5M PRN 05/10/15 [History] Ondansetron [Zofran] 4 mg PO Q6H PRN 05/10/15 [History] amLODIPine [Norvasc] 5 mg PO BEDTIME 05/10/15 [History] rOPINIRole HCl [Requip] 0.5 mg PO BID 10/10/15 [History] Acetaminophen/HYDROcodone [[place] 325-5 MG] 1 - 2 tab PO Q4H PRN 11/05/15 [ History] Albuterol [Proventil Neb Soln] 1 vial INH Q6HR PRN 07/29/16 [History] Cyanocobalamin (Vitamin B12) [Vitamin B12] 500 mcg PO DAILY 08/02/17 [History] Folic Acid 400 mcg PO DAILY 08/02/17 [History] Gabapentin [Neurontin] 300 mg PO BID 08/02/17 [History] Potassium 99 mg PO DAILY 08/02/17 [History] rOPINIRole HCl [Requip] 1 mg PO BEDTIME 08/02/17 [History] Budesonide [Pulmicort] 1 inh INH BID PRN 08/03/17 [History] Budesonide/Formoterol [Symbicort 160-4.5 MCG] 2 inh INH BID 08/03/17 [History] Calcium Carbonate/Vitamin D3 [Calcium Carbonate/Vitamin D 1250 MG-200 Unit] 1 tab PO TID #90 tablet 08/04/17 [Rx] Past Medical History Cardiovascular History: Reports: High Cholesterol, Hypertension Other Cardiovascular History: pt reports a "heart condition" but unable to recall what it is. Has had a cardiac stent placed, heart cath 10-31-15 due to cp- -medical therapy; Respiratory History: Reports: Asthma, COPD Other Respiratory History: saw Dr. Prakash on 03-19-16; Pulmonary rehab ordered , PFT done at that time; denies using oxygen at home Gastrointestinal History: Reports: GERD Musculoskeletal History: Reports: Back Pain, Chronic Other Musculoskeletal History: left knee surgery Neurological History: Reports: Parkinson's, Seizure, Other (See Below) Other Neuro History: tremors of nervous system; says she has some dizziness at home, told Dr. Ennis Psychiatric History: Reports: Depression Other Psychiatric History: depression discussed; gets down with the fact that she cannot do what she wants to do; becomes more SOB at home and says it seems that she is not improving in that area; she used to walk outside, has not done that for years; does not go out socially much anymore; "I get down, but I would not do anything to myself." Dermatologic History: Reports: Eczema - Past Surgical History HEENT Surgical History: Reports: Tonsillectomy Cardiovascular Surgical History: Reports: Other (See Below) Other Respiratory Surgeries/Procedures: attended pulmonary rehab in 2015, did 6 visits, last visit 04-24-16; did not return, had the stomach flu and wasn't feeling well to return. Called recently to schedule rehab again; seeing Dr. Prakash in August, wants to get back to exercising. She feels that she is doing less at home. Her Parkinsons makes it difficult to walk up the steps to her apartment. Gets tired if she tries to vacuum. She feels more SOB; she says she eats well, however, she has trouble lifting the spoon to her mouth due to her parkinsons. She has some eye problems, only causes her a problem when she tries to read or when laying in bed, difficult to see plainly. Encouraged to attend pulmonary rehab regularly. Will discuss an OT consult with Dr. Ennis or with OT; GI Surgical History: Reports: Appendectomy, Cholecystectomy Female Surgical History: Reports: Section, Hysterectomy Musculoskeletal Surgical History: Reports: Knee Replacement, Other (See Below) Social & Family History - Family History Family Medical History: Noncontributory - Caffeine Use Caffeine Use: Reports: Soda ED ROS GENERAL - Review of Systems Review Of Systems: See Below Constitutional: Reports: No Symptoms HEENT: Reports: Other (hematoma to the right forehead) Respiratory: Reports: No Symptoms Cardiovascular: Reports: No Symptoms GI/Abdominal: Reports: No Symptoms Musculoskeletal: Reports: Shoulder Pain (bilaterally), Other (knee pain bilaterally) Skin: Reports: Other (abrasion to the right forehead.) Neurological: Reports: Headache. Denies: Confusion ED EXAM, HEAD INJURY - Physical Exam Exam: See Below Exam Limited By: No Limitations General Appearance: Alert, Moderate Distress Head: Normocephalic, Facial Abrasions (above the right forehead.) Ears: Normal External Exam, Normal Canal Nose: Normal Inspection Throat/Mouth: Normal Inspection, Normal Oropharynx Neck: Non-Tender, Normal Inspection Respiratory: No Respiratory Distress, Lungs Clear Cardiovascular: Regular Rate, Rhythm, No Edema GI/Abdominal Exam: Normal Bowel Sounds, Soft, Non-Tender Back Exam: Normal Inspection Extremities: Normal Inspection, Other (small abrasion to the right knee that is not bleeding. Has some discomfort with flexing knees bilaterally. Shoulders hurt with ROM no bruising or open areas noted.) Neurologic: Alert, Normal Mood/Affect, Oriented x 3 Skin: Normal Color, Warm/Dry - Sana Coma Score Best Eye Response (Sana): (4) Open Spontaneously Best Verbal Response (Sana): (5) Oriented Best Motor Response (Sana): (6) Obeys Commands Course - Vital Signs Last Recorded V/S: Last Vital Signs Temp 97.3 F 12/27/17 20:23 Pulse 91 12/27/17 20:23 Resp 16 12/27/17 20:23 BP 186/84 H 12/27/17 20:23 Pulse Ox 92 L 12/27/17 20:23 - Orders/Labs/Meds Orders: Active Orders 24 hr Category Date Time Status Head wo Cont [CT] Stat Exams 12/27/17 20:30 Taken Shoulder Comp Lt [CR] Stat Exams 12/27/17 20:30 Taken Shoulder Comp Rt [CR] Stat Exams 12/27/17 20:48 Taken - Re-Assessments/Exams Free Text/Narrative Re-Assessment/Exam: 12/27/17 21:00 In to discuss that no fractures are noted and no bleeding noted to brain. Will discharge with daughter. Departure - Departure Time of Disposition: 21:07 Disposition: Home, Self-Care 01 Condition: Good Clinical Impression: Fall Qualifiers: Encounter type: initial encounter Qualified Code(s): W19.XXXA - Unspecified fall, initial encounter Traumatic hematoma of forehead Qualifiers: Encounter type: initial encounter Qualified Code(s): S00.83XA - Contusion of other part of head, initial encounter - Discharge Information *PRESCRIPTION DRUG MONITORING PROGRAM REVIEWED*: Not Applicable *COPY OF PRESCRIPTION DRUG MONITORING REPORT IN PATIENT JIMY: Not Applicable Instructions: Head Injury, Adult, [id number] Additional Instructions: tylenol as needed for discomfort ice to forehead and knees as needed Recheck if any new concerns noted. - Problem List & Annotations (1) Fall SNOMED Code(s): 1676983, 102835488 Code(s): W19.XXXA - UNSPECIFIED FALL, INITIAL ENCOUNTER Status: Acute Priority: High Qualifiers: Encounter type: initial encounter Qualified Code(s): W19.XXXA - Unspecified fall, initial encounter (2) Traumatic hematoma of forehead SNOMED Code(s): 770843915, 446826240 Code(s): S00.83XA - CONTUSION OF OTHER PART OF HEAD, INITIAL ENCOUNTER Status: Acute Priority: High Qualifiers: Encounter type: initial encounter Qualified Code(s): S00.83XA - Contusion of other part of head, initial encounter - Problem List Review Problem List Initiated/Reviewed/Updated: Yes - My Orders Last 24 Hours: My Active Orders 12/27/17 20:30 Head wo Cont [CT] Stat Shoulder Comp Lt [CR] Stat 12/27/17 20:48 Shoulder Comp Rt [CR] Stat - Assessment/Plan Last 24 Hours: My Active Orders 12/27/17 20:30 Head wo Cont [CT] Stat Shoulder Comp Lt [CR] Stat 12/27/17 20:48 Shoulder Comp Rt [CR] Stat
== END 2017-12-27 21:15 | disposition home or self-care (01) ==
LOC: CC.ED 20:22
DX: S00.83XA Contusion of other part of head, initial encounter (principal); M25.511 Pain in right shoulder; M25.512 Pain in left shoulder; M25.561 Pain in right knee; M25.562 Pain in left knee; J44.9 Chronic obstructive pulmonary disease, unspecified; Z88.5 Allergy status to narcotic agent; Z88.0 Allergy status to penicillin; W18.30XA Fall on same level, unspecified, initial encounter; Z79.82 Long term (current) use of aspirin; Z79.899 Other long term (current) drug therapy
CPT/HCPCS: 70450; 73030-LT; 73030-RT; 99283; 99284

== ENCOUNTER 2018-03-07 19:13 | Observation (INO) | payer MEDICAID, MEDICARE, SELFPAY ==
[2018-03-07] MEDS: Nitroglycerin 0.4 MG Tab.SL SL PRN ×2 (19:23→19:30)
[2018-03-07] MEDS ORDERED: Aspirin 81 MG Tab.Chew PO ONE (19:46)
--- NOTE | 2018-03-07 19:55 | EDM.PDOC ---
ED HPI GENERAL MEDICAL PROBLEM - General Chief Complaint: Chest Pain Stated Complaint: chest pain Time Seen by Provider: 03/07/18 19:45 Source of Information: Reports: Patient, Family History Limitations: Reports: No Limitations - History of Present Illness INITIAL COMMENTS - FREE TEXT/NARRATIVE: Patient presents to ER with complaints of anterior lateral chest pain off an on all day. Feels mild nausea but has been able to eat in small amounts today. Has been having issues with shortness of breath, currently uses inhalers. Does not believe that has been any worse than what she has been dealing with. Patient denies radiation of the pain, rates at a 7/10 but has taken nitro x3, first dose at home and has had 4 baby ASA. Patient denies diaphoresis. No abdominal pain, bowel changes or urinary complaints. Patient had history of stent placed in 2013 and daughter relates one prior to that. Last stress test done in 2015. Onset: Today, Gradual Duration: Hour(s):, Waxing/Waning Location: Reports: Chest Quality: Reports: Pressure Severity: Moderate Associated Symptoms: Reports: Chest Pain, Nausea/Vomiting, Shortness of Breath. Denies: Cough, Diaphoresis, Loss of Appetite, Syncope Treatments PRE BILLING SPECIALIST: Reports: Nitroglycerin Headache Pain Score (Numeric/FACES): 5 - Related Data Allergies Allergy/AdvReac Type Severity Reaction Status Date / Time ketorolac [From Toradol] Allergy Vomiting Verified 01/11/18 13:46 Penicillins Allergy Rash Verified 01/11/18 13:46 propoxyphene Allergy Vomiting Verified 01/11/18 13:46 [From Darvocet-N 100] Sulfa (Sulfonamide Allergy Rash Verified 01/11/18 13:46 Antibiotics) Home Meds: Home Meds Aspirin [Halfprin] 81 mg PO DAILY 06/21/13 [History] Docusate Sodium [Colace] 200 mg PO BID PRN 06/21/13 [History] Omeprazole 20 mg PO DAILY 06/21/13 [History] Phenytoin Sodium Extended [Dilantin] 100 mg PO BID 06/21/13 [History] Sertraline HCl 100 mg PO BEDTIME 06/21/13 [History] Furosemide 80 mg PO DAILY 09/09/14 [History] atorvaSTATin [Lipitor] 40 mg PO BEDTIME 09/09/14 [History] Nitroglycerin [Nitrostat] 0.4 mg SL Q5M PRN 05/10/15 [History] Ondansetron [Zofran] 4 mg PO Q6H PRN 05/10/15 [History] amLODIPine [Norvasc] 5 mg PO BEDTIME 05/10/15 [History] rOPINIRole HCl [Requip] 0.5 mg PO BID 10/10/15 [History] Acetaminophen/HYDROcodone [[place] 325-5 MG] 1 - 2 tab PO Q4H PRN 11/05/15 [ History] Albuterol [Proventil Neb Soln] 1 vial INH Q6HR PRN 07/29/16 [History] Cyanocobalamin (Vitamin B12) [Vitamin B12] 500 mcg PO DAILY 08/02/17 [History] Folic Acid 400 mcg PO DAILY 08/02/17 [History] Potassium 99 mg PO DAILY 08/02/17 [History] rOPINIRole HCl [Requip] 1 mg PO BEDTIME 08/02/17 [History] Budesonide [Pulmicort] 1 inh INH BID PRN 08/03/17 [History] Budesonide/Formoterol [Symbicort 160-4.5 MCG] 2 inh INH BID 08/03/17 [History] Calcium Carbonate/Vitamin D3 [Calcium Carbonate/Vitamin D 1250 MG-200 Unit] 1 tab PO TID #90 tablet 08/04/17 [Rx] Past Medical History Cardiovascular History: Reports: High Cholesterol, Hypertension Other Cardiovascular History: pt reports a "heart condition" but unable to recall what it is. Has had a cardiac stent placed, heart cath 10-31-15 due to cp- -medical therapy; Respiratory History: Reports: Asthma, COPD Other Respiratory History: saw Dr. Prakash on 03-19-16; Pulmonary rehab ordered , PFT done at that time; denies using oxygen at home Gastrointestinal History: Reports: GERD Musculoskeletal History: Reports: Back Pain, Chronic Other Musculoskeletal History: left knee surgery Neurological History: Reports: Parkinson's, Seizure, Other (See Below) Other Neuro History: tremors of nervous system; says she has some dizziness at home, told Dr. Ennis Psychiatric History: Reports: Depression Other Psychiatric History: depression discussed; gets down with the fact that she cannot do what she wants to do; becomes more SOB at home and says it seems that she is not improving in that area; she used to walk outside, has not done that for years; does not go out socially much anymore; "I get down, but I would not do anything to myself." Dermatologic History: Reports: Eczema - Past Surgical History HEENT Surgical History: Reports: Tonsillectomy Cardiovascular Surgical History: Reports: Other (See Below) Other Respiratory Surgeries/Procedures: attended pulmonary rehab in 2016, did 6 visits, last visit 04-24-16; did not return, had the stomach flu and wasn't feeling well to return. Called recently to schedule rehab again; seeing Dr. Prakash in August, wants to get back to exercising. She feels that she is doing less at home. Her Parkinsons makes it difficult to walk up the steps to her apartment. Gets tired if she tries to vacuum. She feels more SOB; she says she eats well, however, she has trouble lifting the spoon to her mouth due to her parkinsons. She has some eye problems, only causes her a problem when she tries to read or when laying in bed, difficult to see plainly. Encouraged to attend pulmonary rehab regularly. Will discuss an OT consult with Dr. Ennis or with OT; GI Surgical History: Reports: Appendectomy, Cholecystectomy Female Surgical History: Reports: Section, Hysterectomy Musculoskeletal Surgical History: Reports: Knee Replacement, Other (See Below) Social & Family History - Family History Family Medical History: Noncontributory - Caffeine Use Caffeine Use: Reports: Soda ED ROS GENERAL - Review of Systems Review Of Systems: See Below Constitutional: Denies: Fever, Chills, Malaise, Weakness, Decreased Appetite HEENT: Reports: No Symptoms Respiratory: Reports: Shortness of Breath. Denies: Cough Cardiovascular: Reports: Chest Pain, Edema. Denies: Lightheadedness Endocrine: Reports: Fatigue GI/Abdominal: Reports: Nausea. Denies: Abdominal Pain, Vomiting : Reports: No Symptoms Musculoskeletal: Reports: No Symptoms Skin: Reports: No Symptoms Neurological: Reports: No Symptoms ED EXAM, GENERAL - Physical Exam Exam: See Below Exam Limited By: No Limitations General Appearance: Alert, WD/WN, No Apparent Distress Ears: Normal External Exam, Normal TMs Nose: Normal Inspection, Normal Mucosa, No Blood Throat/Mouth: Normal Inspection, Normal Oropharynx Head: Normocephalic Neck: Normal Inspection, Supple, Non-Tender Respiratory/Chest: No Respiratory Distress, Lungs Clear, Decreased Breath Sounds Cardiovascular: Regular Rate, Rhythm GI/Abdominal: Normal Bowel Sounds, Soft, Non-Tender Extremities: Normal Inspection, Pedal Edema (1+ pitting edema) Neurological: Alert, Oriented Skin Exam: Warm, Dry Course - Vital Signs Last Recorded V/S: Last Vital Signs Temp 97.0 F 03/07/18 21:33 Pulse 67 03/07/18 21:33 Resp 20 03/07/18 21:33 BP 141/58 H 03/07/18 21:33 Pulse Ox 93 L 03/07/18 21:33 - Orders/Labs/Meds Orders: Active Orders 24 hr Category Date Time Status Chest 2V [CR] Stat Exams 03/07/18 19:41 Taken Nitroglycerin [Nitrostat] Med 03/07/18 19:44 Active 0.4 mg SL Q5M PRN Medication Orders Enoxaparin Sodium (Lovenox) 40 mg SUBCUT Q24H PARVEEN Morphine Sulfate (Morphine) 1 mg IVPUSH Q2H PRN PRN Reason: Pain (severe 7-10) Nitroglycerin (Nitrostat) 0.4 mg SL Q5M PRN PRN Reason: Chest Pain Last Admin: 03/07/18 19:30 Dose: 0.4 mg Admin: 03/07/18 19:23 Dose: 0.4 mg Ondansetron HCl (Zofran Odt) 4 mg PO Q4H PRN PRN Reason: nausea, able to take PO Ondansetron HCl (Zofran) 4 mg IV Q4H PRN PRN Reason: Nausea/Vomiting Sodium Chloride (Saline Flush) 10 ml FLUSH ASDIRECTED PRN PRN Reason: Keep Vein Open Labs: Laboratory Tests 03/07/18 03/07/18 03/07/18 Range/Units 19:40 19:40 19:40 WBC 9.5 (5.0-10.0) 10^3/uL RBC 4.24 (4.00-5.50) 10^6/uL Hgb 12.9 (12.0-16.0) g/dL Hct 39.7 (37.0-47.0) % MCV 93.6 (82.0-94.0) fL MCH 30.4 (27.0-32.0) pg MCHC 32.5 L (33.0-38.0) g/dL RDW Coeff of [place] 13.5 (11.0-15.0) % Plt Count 305 (150-400) 10^3/uL Neut % (Auto) 49.9 (35-85) % Lymph % (Auto) 34.2 (10-55) % [place] % (Auto) 12.4 (0-16) % Eos % (Auto) 3.2 (0-5) % Baso % (Auto) 0.3 (0-3) % Neut # (Auto) 4.73 (1.80-7.00) 10^3/uL Lymph # (Auto) 3.24 (1.00-4.80) 10^3/uL [place] # (Auto) 1.17 H (0.00-0.80) 10^3/uL Eos # (Auto) 0.30 (0.00-0.45) 10^3/uL Baso # (Auto) 0.03 10^3/uL PT 10.0 (9.7-12.3) SEC INR 0.96 (0.92-1.18) APTT 24.5 (23.2-32.3) SEC D-Dimer, Quantitative (0.00-0.50) Sodium 141 (136-145) mEq/L Potassium 3.8 (3.5-5.0) mEq/L Chloride 105 (98-106) mEq/L Carbon Dioxide 28 (21-32) mmol/L BUN 24 H D (7-18) mg/dL Creatinine 0.9 (0.6-1.0) mg/dL Est Cr Clr Drug Dosing TNP Estimated GFR (MDRD) > 60 (>=60) mL/min Glucose 114 H (75-99) mg/dL Calcium 8.6 (8.4-10.1) mg/dL Lactate Dehydrogenase 178 (100-190) U/L Creatine Kinase 73 (21-215) U/L Troponin I < 0.017 (0.00-0.06) ng/mL NT-Pro-B Natriuret Pep (0-1000) pg/mL 03/07/18 03/07/18 Range/Units 19:40 19:40 WBC (5.0-10.0) 10^3/uL RBC (4.00-5.50) 10^6/uL Hgb (12.0-16.0) g/dL Hct (37.0-47.0) % MCV (82.0-94.0) fL MCH (27.0-32.0) pg MCHC (33.0-38.0) g/dL RDW Coeff of [place] (11.0-15.0) % Plt Count (150-400) 10^3/uL Neut % (Auto) (35-85) % Lymph % (Auto) (10-55) % [place] % (Auto) (0-16) % Eos % (Auto) (0-5) % Baso % (Auto) (0-3) % Neut # (Auto) (1.80-7.00) 10^3/uL Lymph # (Auto) (1.00-4.80) 10^3/uL [place] # (Auto) (0.00-0.80) 10^3/uL Eos # (Auto) (0.00-0.45) 10^3/uL Baso # (Auto) 10^3/uL PT (9.7-12.3) SEC INR (0.92-1.18) APTT (23.2-32.3) SEC D-Dimer, Quantitative 0.53 H (0.00-0.50) Sodium (136-145) mEq/L Potassium (3.5-5.0) mEq/L Chloride (98-106) mEq/L Carbon Dioxide (21-32) mmol/L BUN (7-18) mg/dL Creatinine (0.6-1.0) mg/dL Est Cr Clr Drug Dosing Estimated GFR (MDRD) (>=60) mL/min Glucose (75-99) mg/dL Calcium (8.4-10.1) mg/dL Lactate Dehydrogenase (100-190) U/L Creatine Kinase (21-215) U/L Troponin I (0.00-0.06) ng/mL NT-Pro-B Natriuret Pep 290 (0-1000) pg/mL Meds: Medications Generic Name Dose Route Start Last Admin Trade Name Freq PRN Reason Stop Dose Admin Enoxaparin Sodium 40 mg 03/07/18 22:00 Lovenox SUBCUT Q24H PARVEEN Morphine Sulfate 1 mg 03/07/18 22:08 Morphine IVPUSH Q2H PRN Pain (severe 7-10) Nitroglycerin 0.4 mg 03/07/18 19:44 03/07/18 19:30 Nitrostat SL 0.4 mg Q5M PRN Administration Chest Pain Ondansetron HCl 4 mg 03/07/18 22:08 Zofran Odt PO Q4H PRN nausea, able to take PO Ondansetron HCl 4 mg 03/07/18 22:08 Zofran IV Q4H PRN Nausea/Vomiting Sodium Chloride 10 ml 03/07/18 22:08 Saline Flush FLUSH ASDIRECTED PRN Keep Vein Open Discontinued Medications Generic Name Dose Route Start Last Admin Trade Name Freq PRN Reason Stop Dose Admin Aspirin 324 mg 03/07/18 19:46 03/07/18 19:23 Aspirin PO 03/07/18 19:47 324 mg ONETIME ONE Administration - Re-Assessments/Exams Free Text/Narrative Re-Assessment/Exam: 03/07/18 2100 Lab tests and EKG without acute changes but pain persists at a 4/10 and has headache related to nitro use. Will admit to observation and repeat cardiac enzymes in am. Family and patient in agreement with this plan. Departure - Departure Time of Disposition: 21:00 Disposition: Refer to Observation Condition: Fair Clinical Impression: Chest pain at rest - Problem List & Annotations (1) Chest pain at rest SNOMED Code(s): 0074421 Code(s): R07.9 - CHEST PAIN, UNSPECIFIED Status: Acute Priority: High Current Visit: Yes - Problem List Review Problem List Initiated/Reviewed/Updated: Yes - My Orders Last 24 Hours: My Active Orders 03/07/18 19:41 Chest 2V [CR] Stat 03/07/18 19:44 Nitroglycerin [Nitrostat] 0.4 mg SL Q5M PRN - Assessment/Plan Admission H&P: Please use this note as an admission H&P Last 24 Hours: My Active Orders 03/07/18 19:41 Chest 2V [CR] Stat 03/07/18 19:44 Nitroglycerin [Nitrostat] 0.4 mg SL Q5M PRN Assessment:: Chest Pain at rest Plan: Admit observation to Dr. Ennis for cardiac monitoring and repeat enzymes. Will give Morphine for pain.
[2018-03-07 20:00] LABS: CHLORIDE,CL 105 mEq/L (98-106); SODIUM,NA 141 mEq/L (136-145)
[2018-03-07] MEDS ORDERED: Enoxaparin 40 MG/0.4 ML Syringe SUBCUT SCH (22:00)
[2018-03-07] MEDS ORDERED: Ondansetron 4 MG Tab.DIS PO PRN (22:08)
[2018-03-07] MEDS ORDERED: Ondansetron 4 MG/2 ML SDV IV PRN (22:08)
[2018-03-07] MEDS ORDERED: Sodium Chloride 0.9% 10 ML Syringe FLUSH PRN (22:08)
[2018-03-07] MEDS ORDERED: Morphine 2 MG/ML Syringe IVPUSH PRN (22:08)
[2018-03-08] MEDS ORDERED: Acetaminophen 325 MG Tab PO PRN (06:14)
[2018-03-08 08:08] VITALS: BP 146/69
--- NOTE | 2018-03-08 20:39 | PCM.DCSUM1 ---
Discharge Summary - Hospital Course Free Text/Narrative:: Patient presented to ER with complaints of chest pain throughout the day. Pain located to left anterior chest, no radiation of the discomfort. She rated her pain at a 7 on presentation, down to a 4 by admission. Had taken 3 nitro and 4 baby ASA at home and in the ER. Patient had EKG in ER that showed NSR. Troponin negative in the ER. Concerned due to history of stent placement and ongoing pain. Mild nausea but was able to eat throughout the day. Has been dealing with shortness of breath, no change in that from her norm. Admitted for cardiac monitoring and repeat enzymes. Diagnosis: Stroke: No Modified [place] Scale: No Symptoms at All Modified [place] Scale Score: 0 - Discharge Data Discharge Date: 03/08/18 Discharge Disposition: Home, Self-Care 01 Condition: Good - Discharge Diagnosis/Problem(s) (1) Chest pain at rest SNOMED Code(s): 6470932 ICD Code: R07.9 - CHEST PAIN, UNSPECIFIED Status: Acute Priority: High - Patient Summary/Data Complications: none Hospital Course: Patient is pain free this am. Troponin and EKG have remained normal, no telemetry changes noted. Tolerating meals. No fevers. Up and ambulating in room and tolerating well. Did not require any further pain meds after admission. Blood pressure remains stable - Patient Instructions Diet: Usual Diet as Tolerated Activity: As Tolerated - Discharge Plan *PRESCRIPTION DRUG MONITORING PROGRAM REVIEWED*: No *COPY OF PRESCRIPTION DRUG MONITORING REPORT IN PATIENT JIMY: No Home Medications: Home Meds Aspirin [Halfprin] 81 mg PO DAILY 06/21/13 [History] Docusate Sodium [Colace] 200 mg PO BID PRN 06/21/13 [History] Omeprazole 20 mg PO DAILY 06/21/13 [History] Phenytoin Sodium Extended [Dilantin] 100 mg PO BID 06/21/13 [History] Sertraline HCl 100 mg PO BEDTIME 06/21/13 [History] Furosemide 80 mg PO DAILY 09/09/14 [History] atorvaSTATin [Lipitor] 40 mg PO BEDTIME 09/09/14 [History] Nitroglycerin [Nitrostat] 0.4 mg SL Q5M PRN 05/10/15 [History] Ondansetron [Zofran] 4 mg PO Q6H PRN 05/10/15 [History] amLODIPine [Norvasc] 5 mg PO BEDTIME 05/10/15 [History] rOPINIRole HCl [Requip] 0.5 mg PO BID 10/10/15 [History] Acetaminophen/HYDROcodone [[place] 325-5 MG] 1 - 2 tab PO Q4H PRN 11/05/15 [ History] Albuterol [Proventil Neb Soln] 1 vial INH Q6HR PRN 07/29/16 [History] Cyanocobalamin (Vitamin B12) [Vitamin B12] 500 mcg PO DAILY 08/02/17 [History] Folic Acid 400 mcg PO DAILY 08/02/17 [History] Potassium 99 mg PO DAILY 08/02/17 [History] rOPINIRole HCl [Requip] 1 mg PO BEDTIME 08/02/17 [History] Budesonide [Pulmicort] 1 inh INH BID PRN 08/03/17 [History] Budesonide/Formoterol [Symbicort 160-4.5 MCG] 2 inh INH BID 08/03/17 [History] Calcium Carbonate/Vitamin D3 [Calcium Carbonate/Vitamin D 1250 MG-200 Unit] 1 tab PO TID #90 tablet 08/04/17 [Rx] Nitroglycerin [Nitrostat] 0.4 mg SL Q5M PRN tab.sl 03/08/18 [Rx] Forms: ED Department Discharge Referrals: Mikael Ennis MD [Primary Care Provider] - (Rehana Scan with DR. Ennis on ) - Discharge Summary/Plan Comment DC Time >30 min.: No Discharge Summary/Plan Comment: Discharge home Will proceed with Rehana scan on with Dr. Ennis. Continue usual meds at this time. Nitro as needed for chest pain - General Info Date of Service: 03/08/18 Admission Dx/Problem (Free Text: Chest Pain at Rest Functional Status: Reports: Pain Controlled, Tolerating Diet, Ambulating - Review of Systems General: Denies: Fever, Weakness, Fatigue HEENT: Reports: No Symptoms Pulmonary: Reports: Shortness of Breath. Denies: Cough, Wheezing Cardiovascular: Reports: Chest Pain, Edema. Denies: Lightheadedness Gastrointestinal: Denies: Abdominal Pain, Nausea, Vomiting Genitourinary: Reports: No Symptoms Musculoskeletal: Reports: No Symptoms Skin: Reports: No Symptoms Neurological: Reports: No Symptoms Psychiatric: Reports: No Symptoms - Patient Data Vitals - Most Recent: Last Vital Signs Temp 96.9 F 03/08/18 08:00 Pulse 63 03/08/18 08:00 Resp 20 03/08/18 08:00 BP 146/69 H 03/08/18 08:00 Pulse Ox 93 L 03/08/18 08:00 Weight - Most Recent: 161 lb 4.8 oz Lab Results - Last 24 hrs: Laboratory Results - last 24 hr 03/08/18 Range/Units 07:00 Troponin I < 0.017 (0.00-0.06) ng/mL Med Orders - Current: Current Medications Discontinued Medications Acetaminophen (Tylenol) 650 mg PO Q4H PRN PRN Reason: Pain/Fever Last Admin: 03/08/18 06:20 Dose: 650 mg Aspirin (Aspirin) 324 mg PO ONETIME ONE Stop: 03/07/18 19:47 Last Admin: 03/07/18 19:23 Dose: 324 mg Enoxaparin Sodium (Lovenox) 40 mg SUBCUT Q24H PARVEEN Last Admin: 03/07/18 22:41 Dose: 40 mg Morphine Sulfate (Morphine) 1 mg IVPUSH Q2H PRN PRN Reason: Pain (severe 7-10) Last Admin: 03/07/18 22:41 Dose: 1 mg Nitroglycerin (Nitrostat) 0.4 mg SL Q5M PRN PRN Reason: Chest Pain Last Admin: 03/07/18 19:30 Dose: 0.4 mg Ondansetron HCl (Zofran Odt) 4 mg PO Q4H PRN PRN Reason: nausea, able to take PO Ondansetron HCl (Zofran) 4 mg IV Q4H PRN PRN Reason: Nausea/Vomiting Sodium Chloride (Saline Flush) 10 ml FLUSH ASDIRECTED PRN PRN Reason: Keep Vein Open - Exam General: Reports: Alert, Oriented HEENT: Reports: Mucous Membr. Moist/[place] Neck: Reports: Supple Lungs: Reports: Clear to Auscultation, Decreased Breath Sounds Cardiovascular: Reports: Regular Rate, Regular Rhythm GI/Abdominal Exam: Normal Bowel Sounds, Soft, Non-Tender Extremities: Normal Inspection, Pedal Edema (trace of edema) Skin: Reports: Warm, Dry Neurological: Reports: No New Focal Deficit
== END 2018-03-08 12:30 | disposition home or self-care (01) ==
LOC: CC.ED 19:13 → OBSVTOIN 21:32 → CC.MS 21:32 → INTOOBSV 21:32
PROVIDERS: ADMIT Physician Assistant Medical; ATTEND Family Medicine
DX: R07.9 Chest pain, unspecified (principal); I10 Essential (primary) hypertension; J44.9 Chronic obstructive pulmonary disease, unspecified; E78.00 Pure hypercholesterolemia, unspecified; K21.9 Gastro-esophageal reflux disease without esophagitis; Z79.82 Long term (current) use of aspirin; Z79.899 Other long term (current) drug therapy; Z95.5 Presence of coronary angioplasty implant and graft
CPT/HCPCS: 36415; 71046; 73560-LT; 80048; 82550; 83615; 83880; 84484; 85025; 85379; 85610; 85730; 93005; 96372; 96374; 99285; A9270-GY; G0378; J1650; J2270

== ENCOUNTER → 2018-07-22 | Day surgery (SDC) | payer MEDICARE ==
[~2018-07-22] MED LIST: Denosumab 60 MG/1 ML Syringe SUBCUT ONE; Lactated Ringers 1,000 ML IV SCH; Propofol 200 MG/20 ML SDV IV ONE
[2018-07-22 09:09] VITALS: BP 129/61
--- NOTE | 2018-07-22 10:46 | OR ---
DATE OF OPERATION: 07/22/2018 PREOPERATIVE DIAGNOSIS: ALTERED BOWEL HABITS. POSTOPERATIVE DIAGNOSIS: ALTERED BOWEL HABITS. SURGEON: Mikael Ennis MD PROCEDURE: FULL-LENGTH COLONOSCOPY WITH BIOPSIES X5. ANESTHESIA: STONE BANKER. COMPLICATIONS: None. SPECIMEN: Random colon biopsies x5 with 2 biopsies in rectal vault. FINDINGS: 1. Full-length colonoscopy. 2. Mild sigmoid diverticulosis. 3. Nonspecific and mild proctitis, rectal vault and rectosigmoid junction. RECOMMENDATIONS: Medical followup pending pathology reports. INDICATIONS: Ms. Hernandez was in for routine physical. She is overdue for a colonoscopy and she admits to having altered bowel habits in the form of diarrhea at times. We elected to proceed with a diagnostic colonoscopy. DESCRIPTION OF PROCEDURE: The patient was prepped and draped, placed in the left lateral decubitus position. A lubricated Olympus colonoscope was inserted and easily advanced to the cecum. Direct visualization of the ileocecal valve and appendiceal orifice was accomplished. The bowel prep was fine. Upon withdrawal of the scope, the cecum, ascending and transverse colons were completely benign. I did do a biopsy of both the right and transverse colon due to her complaint of altered bowel habits, but no signs of colitis were seen. The descending colon also unremarkable. In the sigmoid area, the patient had scattered diverticula throughout, mild in severity, without any inflammatory changes. Sigmoid biopsy also obtained randomly. No signs of any polyps, mass, ulceration, or bleeding sites. No vascular abnormalities or obvious signs of colitis in the rectosigmoid junction. In the rectal vault, the patient had some very nonspecific proctitis changes. Two biopsies were taken, no other lesions found. Air was suctioned, scope removed without complication. SINCERE/ABDI /[id number]
== END ==
LOC: CC.SDS 07:16
PROVIDERS: ATTEND Family Medicine
DX: R19.7 Diarrhea, unspecified (principal); K57.30 Diverticulosis of large intestine without perforation or abscess without bleeding; K62.89 Other specified diseases of anus and rectum; K62.1 Rectal polyp; J44.9 Chronic obstructive pulmonary disease, unspecified; F32.9 Major depressive disorder, single episode, unspecified; K21.9 Gastro-esophageal reflux disease without esophagitis; E78.5 Hyperlipidemia, unspecified; I10 Essential (primary) hypertension; E83.51 Hypocalcemia; M17.10 Unilateral primary osteoarthritis, unspecified knee; M81.0 Age-related osteoporosis without current pathological fracture; G47.00 Insomnia, unspecified; G25.81 Restless legs syndrome; Z88.0 Allergy status to penicillin; Z88.2 Allergy status to sulfonamides; Z88.5 Allergy status to narcotic agent; Z88.6 Allergy status to analgesic agent; Z79.82 Long term (current) use of aspirin; Z79.899 Other long term (current) drug therapy; Z87.891 Personal history of nicotine dependence
CPT/HCPCS: 88305; 96372; J0897; J2704; J7120

== ENCOUNTER 2019-08-03 15:17 | Inpatient (IN) | payer MEDICARE, MEDICAID ==
[2019-08-03] MEDS ORDERED: Sodium Chloride 0.9% 10 ML Syringe FLUSH PRN (15:22)
[2019-08-03] MEDS: Albuterol/Ipratropium 3.0-0.5 MG/3 ML Neb Soln NEB SCH ×2 (16:03→20:01)
[2019-08-03] MEDS: Acetaminophen 325 MG Tab PO PRN ×2 (16:03→20:52)
[2019-08-03 16:12] LABS: CHLORIDE,CL 99 mEq/L (98-106); SODIUM,NA 136 mEq/L (136-145)
[2019-08-03] MEDS ORDERED: Acetaminophen/oxyCODONE 325-5 MG Tab PO PRN (17:23)
[2019-08-03] MEDS ORDERED: traMADol 50 MG Tab PO PRN (17:23)
[2019-08-03] MEDS ORDERED: Docusate Sodium 100 MG Cap PO PRN (17:23)
[2019-08-03] MEDS ORDERED: Ondansetron 4 MG Tab.DIS PO PRN (17:23)
[2019-08-03] MEDS ORDERED: Budesonide 0.5 MG/2 ML Neb Susp INH PRN (17:23)
[2019-08-03] MEDS ORDERED: Albuterol 0.083% 2.5 MG/3 ML Neb Soln INH PRN (17:23)
[2019-08-03 17:36] LABS: BICARBONATE,ARTERIAL 26.3 mm/L (22.0-26.0); O2 DELIVERY DEVICE ROOM AIR; O2 SATURATION ARTERIAL 85 % (95-98); PCO2 ARTERIAL 40 mm/Hg0 (35-45); PO2 ARTERIAL 48 mm/Hg (80-100)
[2019-08-03] MEDS ORDERED: Iopamidol 755 Mg/ML 100 ML Bottle IVPUSH ONE (18:29)
[2019-08-03] MEDS: Ibuprofen 200 MG Tab PO PRN ×2 (18:32→23:32)
[2019-08-03] MEDS: Enoxaparin 40 MG/0.4 ML Syringe SUBCUT SCH (18:33)
[2019-08-03] MEDS: Sodium Chloride 0.45% with KCl 1,000 ML IV SCH ×2 (19:09→23:32)
[2019-08-03] MEDS: Levofloxacin/Dextrose 5%-Water 500 MG in Premix Bag 1 BAG IV SCH (19:09)
[2019-08-03] MEDS: rOPINIRole 1 MG Tab PO SCH (19:59)
[2019-08-03] MEDS: Folic Acid 1 MG Tab PO SCH (19:59)
[2019-08-03] MEDS: Phenytoin 100 MG Cap.ER PO SCH (19:59)
[2019-08-03] MEDS: Calcium Carbonate/Vitamin D3 1250 MG-200 Unit Tab PO SCH (20:00)
[2019-08-03] MEDS: Formoterol/Mometasone 200-5 MCG 8.8 GM Inhaler IH SCH (20:01)
[2019-08-03] MEDS: amLODIPine 2.5 MG Tab PO SCH (20:01)
[2019-08-03] MEDS: Gabapentin 300 MG Cap PO SCH (20:01)
[2019-08-04] MEDS: Pantoprazole 40 MG Tab.CR PO SCH (07:47)
[2019-08-04] MEDS: rOPINIRole 0.25 MG Tab PO SCH ×2 (07:51→11:40)
[2019-08-04] MEDS: Formoterol/Mometasone 200-5 MCG 8.8 GM Inhaler IH SCH ×2 (07:52→19:45)
[2019-08-04] MEDS: Albuterol/Ipratropium 3.0-0.5 MG/3 ML Neb Soln NEB SCH ×4 (07:52→19:45)
[2019-08-04] MEDS: Cyanocobalamin (Vitamin B12) 1,000 MCG Tab PO SCH (07:53)
[2019-08-04] MEDS: atorvaSTATin 20 MG Tab PO SCH (07:54)
[2019-08-04] MEDS: Aspirin 81 MG Tab.EC PO SCH (07:54)
[2019-08-04] MEDS: Calcium Carbonate/Vitamin D3 1250 MG-200 Unit Tab PO SCH ×3 (07:54→19:45)
[2019-08-04] MEDS: Phenytoin 100 MG Cap.ER PO SCH ×2 (07:54→19:49)
[2019-08-04] MEDS: Furosemide 40 MG Tab PO SCH (07:55)
[2019-08-04] MEDS: Sertraline 100 MG Tab PO SCH (07:55)
[2019-08-04] MEDS: Citalopram 10 MG Tab PO SCH (07:55)
[2019-08-04] MEDS: Gabapentin 300 MG Cap PO SCH ×3 (07:56→19:46)
[2019-08-04] MEDS ORDERED: Non-Formulary Medication 1 Each (Potassium [Potassium] 99 MG) PO SCH (08:00)
[2019-08-04] MEDS: Acetaminophen 325 MG Tab PO PRN ×3 (08:05→18:56)
[2019-08-04] MEDS ORDERED: Magnesium Sulfate/D5W 2 GM in Premix Bag 1 BAG IV ONE (08:38)
[2019-08-04] MEDS: methylPREDNISolone Sodium Succinate 125 MG/2 ML SDV IVPUSH SCH ×2 (09:36→19:50)
--- NOTE | 2019-08-04 10:24 | PCM.PN ---
- General Info Date of Service: 08/04/19 Admission Dx/Problem (Free Text): Pneumonia Functional Status: Reports: Pain Controlled, Tolerating Diet, Ambulating - Review of Systems General: Reports: Weakness, Fatigue, Malaise. Denies: Fever HEENT: Reports: Rhinitis Pulmonary: Reports: Shortness of Breath, Cough, Wheezing Cardiovascular: Denies: Chest Pain, Edema, Lightheadedness Gastrointestinal: Denies: Abdominal Pain, Nausea, Vomiting Genitourinary: Reports: No Symptoms Musculoskeletal: Reports: No Symptoms Skin: Reports: No Symptoms Neurological: Reports: Weakness. Denies: Dizziness, Headache - Patient Data Vitals - Most Recent: Last Vital Signs Temp 98.7 F 08/04/19 08:00 Pulse 69 08/04/19 08:00 Resp 18 08/04/19 08:00 BP 124/59 L 08/04/19 08:00 Pulse Ox 97 08/04/19 08:00 Weight - Most Recent: 165 lb 1.6 oz I&O - Last 24 Hours: Intake & Output 08/03/19 08/04/19 08/04/19 22:59 06:59 14:59 Intake Total 219 Balance 219 Lab Results Last 24 Hours: Laboratory Results - last 24 hr 08/03/19 08/03/19 08/03/19 Range/Units 15:20 15:22 15:26 WBC (5.0-10.0) 10^3/uL RBC (4.00-5.50) 10^6/uL Hgb (12.0-16.0) g/dL Hct (37.0-47.0) % MCV (82.0-94.0) fL MCH (27.0-32.0) pg MCHC (33.0-38.0) g/dL RDW Coeff of [place] (11.0-15.0) % Plt Count (150-400) 10^3/uL Neut % (Auto) (35-85) % Lymph % (Auto) (10-55) % [place] % (Auto) (0-16) % Eos % (Auto) (0-5) % Baso % (Auto) (0-3) % Neut # (Auto) (1.80-7.00) 10^3/uL Lymph # (Auto) (1.00-4.80) 10^3/uL [place] # (Auto) (0.00-0.80) 10^3/uL Eos # (Auto) (0.00-0.45) 10^3/uL Baso # (Auto) 10^3/uL D-Dimer, Quantitative (0.00-0.50) ABG pH (7.35-7.45) ABG pCO2 (35-45) mm/Hg0 ABG pO2 (80-100) mm/Hg ABG HCO3 (22.0-26.0) mm/L ABG O2 Saturation (95-98) % ABG Base Excess (-2.0-3.0) O2 Delivery Device Sodium 136 (136-145) mEq/L Potassium 3.3 L D (3.5-5.0) mEq/L Chloride 99 (98-106) mEq/L Carbon Dioxide 27 (21-32) mmol/L BUN 9 (7-18) mg/dL Creatinine 0.7 (0.6-1.0) mg/dL Est Cr Clr Drug Dosing 47.58 mL/min Estimated GFR (MDRD) > 60 (>=60) mL/min Glucose 111 H (75-99) mg/dL Lactic Acid 0.9 (0.4-2.0) mmol/L Calcium 8.8 (8.4-10.1) mg/dL Magnesium (1.8-2.4) mg/dL Troponin I 0.021 (0.00-0.06) ng/mL C-Reactive Protein 2.8 H (0.2-0.8) mg/dL Urine Color Yellow (YELLOW) Urine Appearance Cloudy (CLEAR) Urine pH 6.5 (4.5-8.0) Ur Specific [place] 1.025 H (1.003-1.020) Urine Protein Trace H (NEGATIVE) mg/dL Urine Glucose (UA) Negative (NEGATIVE) mg/dL Urine Ketones 15 H (NEGATIVE) mg/dL Urine Occult Blood Trace-intact H (NEGATIVE) Urine Nitrite Negative (NEGATIVE) Urine Bilirubin Negative (NEGATIVE) Urine Urobilinogen 0.2 (0.2-1.0) EU/dL Ur Leukocyte Esterase Negative (NEGATIVE) Urine RBC Not seen (0-5) /HPF Urine WBC 0-5 (0-5) /HPF Urine Bacteria Moderate H (NOT SEEN) /HPF Urinalysis Comment 08/03/19 08/03/19 08/03/19 Range/Units 15:50 17:21 17:21 WBC 9.5 (5.0-10.0) 10^3/uL RBC 5.25 (4.00-5.50) 10^6/uL Hgb 15.3 (12.0-16.0) g/dL Hct 47.2 H (37.0-47.0) % MCV 89.9 (82.0-94.0) fL MCH 29.1 (27.0-32.0) pg MCHC 32.4 L (33.0-38.0) g/dL RDW Coeff of [place] 14.3 (11.0-15.0) % Plt Count 254 (150-400) 10^3/uL Neut % (Auto) 65.0 (35-85) % Lymph % (Auto) 21.0 (10-55) % [place] % (Auto) 12.1 (0-16) % Eos % (Auto) 1.7 (0-5) % Baso % (Auto) 0.2 (0-3) % Neut # (Auto) 6.15 (1.80-7.00) 10^3/uL Lymph # (Auto) 1.99 (1.00-4.80) 10^3/uL [place] # (Auto) 1.15 H (0.00-0.80) 10^3/uL Eos # (Auto) 0.16 (0.00-0.45) 10^3/uL Baso # (Auto) 0.02 10^3/uL D-Dimer, Quantitative (0.00-0.50) ABG pH 7.42 (7.35-7.45) ABG pCO2 40 (35-45) mm/Hg0 ABG pO2 48 L (80-100) mm/Hg ABG HCO3 26.3 H (22.0-26.0) mm/L ABG O2 Saturation 85 L (95-98) % ABG Base Excess 2.0 (-2.0-3.0) O2 Delivery Device Room air Sodium (136-145) mEq/L Potassium (3.5-5.0) mEq/L Chloride (98-106) mEq/L Carbon Dioxide (21-32) mmol/L BUN (7-18) mg/dL Creatinine (0.6-1.0) mg/dL Est Cr Clr Drug Dosing mL/min Estimated GFR (MDRD) (>=60) mL/min Glucose (75-99) mg/dL Lactic Acid (0.4-2.0) mmol/L Calcium (8.4-10.1) mg/dL Magnesium 1.6 L (1.8-2.4) mg/dL Troponin I (0.00-0.06) ng/mL C-Reactive Protein (0.2-0.8) mg/dL Urine Color (YELLOW) Urine Appearance (CLEAR) Urine pH (4.5-8.0) Ur Specific [place] (1.003-1.020) Urine Protein (NEGATIVE) mg/dL Urine Glucose (UA) (NEGATIVE) mg/dL Urine Ketones (NEGATIVE) mg/dL Urine Occult Blood (NEGATIVE) Urine Nitrite (NEGATIVE) Urine Bilirubin (NEGATIVE) Urine Urobilinogen (0.2-1.0) EU/dL Ur Leukocyte Esterase (NEGATIVE) Urine RBC (0-5) /HPF Urine WBC (0-5) /HPF Urine Bacteria (NOT SEEN) /HPF Urinalysis Comment 08/03/19 Range/Units 17:21 WBC (5.0-10.0) 10^3/uL RBC (4.00-5.50) 10^6/uL Hgb (12.0-16.0) g/dL Hct (37.0-47.0) % MCV (82.0-94.0) fL MCH (27.0-32.0) pg MCHC (33.0-38.0) g/dL RDW Coeff of [place] (11.0-15.0) % Plt Count (150-400) 10^3/uL Neut % (Auto) (35-85) % Lymph % (Auto) (10-55) % [place] % (Auto) (0-16) % Eos % (Auto) (0-5) % Baso % (Auto) (0-3) % Neut # (Auto) (1.80-7.00) 10^3/uL Lymph # (Auto) (1.00-4.80) 10^3/uL [place] # (Auto) (0.00-0.80) 10^3/uL Eos # (Auto) (0.00-0.45) 10^3/uL Baso # (Auto) 10^3/uL D-Dimer, Quantitative 0.39 (0.00-0.50) ABG pH (7.35-7.45) ABG pCO2 (35-45) mm/Hg0 ABG pO2 (80-100) mm/Hg ABG HCO3 (22.0-26.0) mm/L ABG O2 Saturation (95-98) % ABG Base Excess (-2.0-3.0) O2 Delivery Device Sodium (136-145) mEq/L Potassium (3.5-5.0) mEq/L Chloride (98-106) mEq/L Carbon Dioxide (21-32) mmol/L BUN (7-18) mg/dL Creatinine (0.6-1.0) mg/dL Est Cr Clr Drug Dosing mL/min Estimated GFR (MDRD) (>=60) mL/min Glucose (75-99) mg/dL Lactic Acid (0.4-2.0) mmol/L Calcium (8.4-10.1) mg/dL Magnesium (1.8-2.4) mg/dL Troponin I (0.00-0.06) ng/mL C-Reactive Protein (0.2-0.8) mg/dL Urine Color (YELLOW) Urine Appearance (CLEAR) Urine pH (4.5-8.0) Ur Specific [place] (1.003-1.020) Urine Protein (NEGATIVE) mg/dL Urine Glucose (UA) (NEGATIVE) mg/dL Urine Ketones (NEGATIVE) mg/dL Urine Occult Blood (NEGATIVE) Urine Nitrite (NEGATIVE) Urine Bilirubin (NEGATIVE) Urine Urobilinogen (0.2-1.0) EU/dL Ur Leukocyte Esterase (NEGATIVE) Urine RBC (0-5) /HPF Urine WBC (0-5) /HPF Urine Bacteria (NOT SEEN) /HPF Urinalysis Comment [place] Results Last 24 Hours: Microbiology 08/03/19 16:58 Urine Culture - Final Urine, Voided 08/03/19 15:26 Anaerobic Blood Culture - Final Blood - Venous 08/03/19 15:21 Influenza Type A Antigen Screen - Final Nasal, Unspecified NEGATIVE INFLUENZA A VIRUS AG REFERENCE RANGE: NEGATIVE Influenza Type B Antigen Screen - Final NEGATIVE INFLUENZA B VIRUS AG REFERENCE RANGE: NEGATIVE Med Orders - Current: Current Medications Acetaminophen (Tylenol) 650 mg PO Q4H PRN PRN Reason: Pain (Mild 1-3)/fever Last Admin: 08/04/19 08:05 Dose: 650 mg Albuterol (Proventil Neb Soln) 2.5 mg INH Q6H PRN PRN Reason: Shortness of Breath Albuterol/Ipratropium (Duoneb 3.0-0.5 Mg/3 Ml) 3 ml NEB QIDRT [facility] Last Admin: 08/04/19 07:52 Dose: 3 ml Amlodipine Besylate (Norvasc) 5 mg PO BEDTIME [facility] Last Admin: 08/03/19 20:01 Dose: Not Given Aspirin (Halfprin) 81 mg PO DAILY [facility] Last Admin: 08/04/19 07:54 Dose: 81 mg Atorvastatin Calcium (Lipitor) 40 mg PO DAILY [facility] Last Admin: 08/04/19 07:54 Dose: 40 mg Budesonide (Pulmicort) 0.5 mg INH BID PRN PRN Reason: Shortness of Breath Calcium Carbonate (Calcium Carbonate/Vitamin D 1250 Mg-200 Unit) 1 tab PO TID [facility] Last Admin: 08/04/19 07:54 Dose: 1 tab Citalopram Hydrobromide (Celexa) 20 mg PO DAILY [facility] Last Admin: 08/04/19 07:55 Dose: 20 mg Cyanocobalamin (Vitamin B12) 500 mcg PO DAILY [facility] Last Admin: 08/04/19 07:53 Dose: 500 mcg Docusate Sodium (Colace) 200 mg PO BID PRN PRN Reason: Constipation Enoxaparin Sodium (Lovenox) 40 mg SUBCUT Q24H [facility] Last Admin: 08/03/19 18:33 Dose: 40 mg Folic Acid (Folic Acid) 0.5 mg PO BEDTIME [facility] Last Admin: 08/03/19 19:59 Dose: 0.5 mg Furosemide (Lasix) 40 mg PO DAILY [facility] Last Admin: 08/04/19 07:55 Dose: 40 mg Gabapentin (Neurontin) 300 mg PO 1400 [place] Gabapentin (Neurontin) 600 mg PO BID [facility] Last Admin: 08/04/19 07:56 Dose: 600 mg Levofloxacin/Dextrose 500 mg/ (Premix) 100 mls @ 100 mls/hr IV Q24H [facility] Last Admin: 08/03/19 19:09 Dose: 100 mls/hr Potassium Chloride/Sodium Chloride (1/2 Ns With 20 Meq Kcl) 1,000 mls @ 50 mls/ hr IV ASDIRECTED [facility] Last Admin: 08/03/19 23:32 Dose: 50 mls/hr Magnesium Sulfate/Dextrose 2 (gm/ Premix) 200 mls @ 100 mls/hr IV ONETIME ONE Stop: 08/04/19 10:37 Last Admin: 08/04/19 09:41 Dose: 100 mls/hr Ibuprofen (Motrin) 600 mg PO Q6H PRN PRN Reason: Pain/Fever Last Admin: 08/03/19 23:32 Dose: 600 mg Magnesium Chloride (Mag-64) 64 mg PO BIDMEALS [facility] Methylprednisolone Sodium Succinate (Solu-Medrol) 62.5 mg IVPUSH Q12H [facility] Last Admin: 08/04/19 09:36 Dose: 62.5 mg Mometasone Furoate/Formoterol Fumar (Dulera 200-5 Mcg) 2 puff IH BIDRT [facility] Last Admin: 08/04/19 07:52 Dose: 2 inh Non-Formulary Medication (Potassium [Potassium]) 99 mg PO DAILY [facility] Ondansetron HCl (Zofran Odt) 4 mg PO Q6H PRN PRN Reason: Nausea Oxycodone/Acetaminophen (Percocet 325-5 Mg) 1 - 2 tab PO Q6H PRN PRN Reason: Pain Pantoprazole Sodium (Protonix) 40 mg PO ACBREAKFAST [facility] Last Admin: 08/04/19 07:47 Dose: 40 mg Phenytoin Sodium (Phenytoin) 100 mg PO BID [facility] Last Admin: 08/04/19 07:54 Dose: 100 mg Ropinirole HCl (Requip) 0.5 mg PO 0800,1200 [facility] Last Admin: 08/04/19 07:51 Dose: 0.5 mg Ropinirole HCl (Requip) 1 mg PO BEDTIME [facility] Last Admin: 08/03/19 19:59 Dose: 1 mg Sertraline HCl (Zoloft) 100 mg PO DAILY [facility] Last Admin: 08/04/19 07:55 Dose: 100 mg Sodium Chloride (Saline Flush) 10 ml FLUSH ASDIRECTED PRN PRN Reason: Keep Vein Open Temazepam (Restoril) 15 mg PO BEDTIME PRN PRN Reason: Sleep Tramadol HCl (Ultram) 50 mg PO Q8H PRN PRN Reason: Pain Discontinued Medications Iopamidol (Isovue-370 (76%)) 100 ml IVPUSH ONETIME ONE Stop: 08/03/19 18:30 Last Admin: 08/03/19 19:07 Dose: 100 ml - Exam Quality Assessment: Supplemental Oxygen General: Alert, Oriented HEENT: Mucous Membr. Moist/[place] Neck: Supple Lungs: Decreased Breath Sounds, Wheezing Cardiovascular: Regular Rate, Regular Rhythm GI/Abdominal Exam: Normal Bowel Sounds, Soft, Non-Tender Extremities: Normal Inspection, No Pedal Edema Skin: Warm, Dry Neurological: No New Focal Deficit Sepsis Event Note - Evaluation Sepsis Screening Result: No Definite Risk - Focused Exam Vital Signs: Vital Signs Temp Pulse Resp BP Pulse Ox 08/04/19 08:00 98.7 F 69 18 124/59 L 97 08/04/19 04:00 96.0 F L 74 20 108/46 L 95 08/03/19 23:29 98.1 F 77 18 127/41 L 96 Date Exam was Performed: 08/04/19 Time Exam was Performed: 10:18 - Problem List & Annotations (1) Bronchiolitis SNOMED Code(s): 7220497 Code(s): J21.9 - ACUTE BRONCHIOLITIS, UNSPECIFIED Status: Acute Priority : High Current Visit: Yes (2) Respiratory distress SNOMED Code(s): 514792219 Code(s): R06.03 - ACUTE RESPIRATORY DISTRESS Status: Acute Priority: High Current Visit: Yes (3) Hypoxia SNOMED Code(s): 726782213 Code(s): R09.02 - HYPOXEMIA Status: Acute Priority: High Current Visit : Yes - Problem List Review Problem List Initiated/Reviewed/Updated: Yes - My Orders Last 24 Hours: My Active Orders 08/04/19 08:30 methylPREDNISolone Sod Succ [Solu-MEDROL] 62.5 mg IVPUSH Q12H 08/04/19 08:38 Magnesium Sulfate/D5W [Magnesium Sulfate in D5W 100 Premix] 2 gm Premix Bag 1 bag IV ONETIME 08/04/19 17:30 Magnesium Chloride [Mag-64] 64 mg PO BIDMEALS 08/05/19 05:11 BASIC METABOLIC PANEL,BMP [CHEM] AM C-REACTIVE PROTEIN [CHEM] AM CBC WITH AUTO DIFF [HEME] AM MAGNESIUM [CHEM] AM - Assessment Assessment:: Acute infectious bronchiolitis Respiratory Distress Hypoxia - Plan Plan:: Patient admits to feeling better today, states breathing easier. She did require oxygen during the night, sats now 96% on 2 liters. Now afebrile. Lung sounds noted to have expiratory wheezing throughout. ABGs yesterday did note oxygen sat of 85%. WBC was normal at 9.5. Potassium slightly low at 3.3, magnesium 1.6. CRP 2.8. Influenza was negative. Chest xray was essentially negative so did proceed with CT scan of chest. CT read shows infectious bronchiolitis. Will continue with IV antibiotics. Add solu medrol today. Continue nebs. Magnesium 2 gm IV given as magnesium yesterday was 1.6. Will repeat labs in am.
[2019-08-04] MEDS: Levofloxacin/Dextrose 5%-Water 500 MG in Premix Bag 1 BAG IV SCH (16:52)
[2019-08-04] MEDS: Magnesium Chloride 64 MG Tab.ER PO SCH (17:24)
[2019-08-04] MEDS: Enoxaparin 40 MG/0.4 ML Syringe SUBCUT SCH (17:24)
[2019-08-04] MEDS: amLODIPine 2.5 MG Tab PO SCH (19:44)
[2019-08-04] MEDS: Folic Acid 1 MG Tab PO SCH (19:45)
[2019-08-04] MEDS: rOPINIRole 1 MG Tab PO SCH (19:49)
[2019-08-05] MEDS: Temazepam 15 MG Cap PO PRN (00:28)
[2019-08-05] MEDS: Acetaminophen 325 MG Tab PO PRN ×2 (04:43→17:15)
[2019-08-05] MEDS: Pantoprazole 40 MG Tab.CR PO SCH (06:02)
[2019-08-05 07:33] LABS: CHLORIDE,CL 104 mEq/L (98-106); SODIUM,NA 139 mEq/L (136-145)
[2019-08-05] MEDS: Albuterol/Ipratropium 3.0-0.5 MG/3 ML Neb Soln NEB SCH ×4 (07:53→19:39)
[2019-08-05] MEDS: Gabapentin 300 MG Cap PO SCH ×3 (07:55→19:43)
[2019-08-05] MEDS: Formoterol/Mometasone 200-5 MCG 8.8 GM Inhaler IH SCH ×2 (07:55→19:40)
[2019-08-05] MEDS: Calcium Carbonate/Vitamin D3 1250 MG-200 Unit Tab PO SCH ×3 (07:56→19:41)
[2019-08-05] MEDS: Sertraline 100 MG Tab PO SCH (07:56)
[2019-08-05] MEDS: atorvaSTATin 20 MG Tab PO SCH (07:56)
[2019-08-05] MEDS: rOPINIRole 0.25 MG Tab PO SCH ×2 (07:56→11:42)
[2019-08-05] MEDS: Cyanocobalamin (Vitamin B12) 1,000 MCG Tab PO SCH (07:56)
[2019-08-05] MEDS: Citalopram 10 MG Tab PO SCH (07:59)
[2019-08-05] MEDS: Aspirin 81 MG Tab.EC PO SCH (08:00)
[2019-08-05] MEDS: Phenytoin 100 MG Cap.ER PO SCH ×2 (08:00→19:43)
[2019-08-05] MEDS: Magnesium Chloride 64 MG Tab.ER PO SCH ×2 (08:00→17:15)
[2019-08-05] MEDS: Furosemide 40 MG Tab PO SCH (08:01)
[2019-08-05] MEDS: methylPREDNISolone Sodium Succinate 125 MG/2 ML SDV IVPUSH SCH ×2 (08:04→19:38)
--- NOTE | 2019-08-05 08:28 | PCM.PN ---
- General Info Date of Service: 08/05/19 Admission Dx/Problem (Free Text): Pneumonia Functional Status: Reports: Tolerating Diet - Review of Systems General: Reports: No Symptoms. Denies: Fever, Weakness HEENT: Reports: No Symptoms Pulmonary: Reports: Cough. Denies: Shortness of Breath, Pleuritic Chest Pain Cardiovascular: Reports: No Symptoms. Denies: Chest Pain Gastrointestinal: Reports: No Symptoms. Denies: Abdominal Pain, Diarrhea, Nausea, Vomiting Genitourinary: Reports: No Symptoms Musculoskeletal: Reports: No Symptoms Skin: Reports: No Symptoms Neurological: Reports: No Symptoms Psychiatric: Reports: No Symptoms - Patient Data Vitals - Most Recent: Last Vital Signs Temp 36.1 C 08/05/19 04:00 Pulse 85 08/05/19 04:00 Resp 20 08/05/19 04:00 BP 127/56 L 08/05/19 04:00 Pulse Ox 93 L 08/05/19 04:00 Weight - Most Recent: 74.888 kg Lab Results Last 24 Hours: Laboratory Results - last 24 hr 08/05/19 08/05/19 Range/Units 07:10 07:10 WBC 8.4 (5.0-10.0) 10^3/uL RBC 4.24 (4.00-5.50) 10^6/uL Hgb 12.4 (12.0-16.0) g/dL Hct 39.0 (37.0-47.0) % MCV 92.0 (82.0-94.0) fL MCH 29.2 (27.0-32.0) pg MCHC 31.8 L (33.0-38.0) g/dL RDW Coeff of [place] 14.3 (11.0-15.0) % Plt Count 240 (150-400) 10^3/uL Neut % (Auto) 61.4 (35-85) % Lymph % (Auto) 23.3 (10-55) % [place] % (Auto) 14.9 (0-16) % Eos % (Auto) 0.2 (0-5) % Baso % (Auto) 0.2 (0-3) % Neut # (Auto) 5.17 (1.80-7.00) 10^3/uL Lymph # (Auto) 1.96 (1.00-4.80) 10^3/uL [place] # (Auto) 1.26 H (0.00-0.80) 10^3/uL Eos # (Auto) 0.02 (0.00-0.45) 10^3/uL Baso # (Auto) 0.02 10^3/uL Sodium 139 (136-145) mEq/L Potassium 4.5 D (3.5-5.0) mEq/L Chloride 104 (98-106) mEq/L Carbon Dioxide 28 (21-32) mmol/L BUN 12 (7-18) mg/dL Creatinine 0.7 (0.6-1.0) mg/dL Est Cr Clr Drug Dosing 47.58 mL/min Estimated GFR (MDRD) > 60 (>=60) mL/min Glucose 113 H (75-99) mg/dL Calcium 8.4 (8.4-10.1) mg/dL Magnesium 2.0 (1.8-2.4) mg/dL C-Reactive Protein 1.5 H (0.2-0.8) mg/dL [place] Results Last 24 Hours: Microbiology 08/03/19 15:26 Aerobic Blood Culture - Preliminary Blood - Venous NO GROWTH AFTER 1 DAY Anaerobic Blood Culture - Final 08/04/19 09:00 Gram Stain - Final Sputum - Expectorated 08/03/19 16:58 Urine Culture - Final Urine, Voided Med Orders - Current: Current Medications Acetaminophen (Tylenol) 650 mg PO Q4H PRN PRN Reason: Pain (Mild 1-3)/fever Last Admin: 08/05/19 04:43 Dose: 650 mg Albuterol (Proventil Neb Soln) 2.5 mg INH Q6H PRN PRN Reason: Shortness of Breath Albuterol/Ipratropium (Duoneb 3.0-0.5 Mg/3 Ml) 3 ml NEB QIDRT [facility] Last Admin: 08/05/19 07:53 Dose: 3 ml Amlodipine Besylate (Norvasc) 5 mg PO BEDTIME [facility] Last Admin: 08/04/19 19:44 Dose: 5 mg Aspirin (Halfprin) 81 mg PO DAILY [facility] Last Admin: 08/05/19 08:00 Dose: 81 mg Atorvastatin Calcium (Lipitor) 40 mg PO DAILY [facility] Last Admin: 08/05/19 07:56 Dose: 40 mg Budesonide (Pulmicort) 0.5 mg INH BID PRN PRN Reason: Shortness of Breath Calcium Carbonate (Calcium Carbonate/Vitamin D 1250 Mg-200 Unit) 1 tab PO TID [facility] Last Admin: 08/05/19 07:56 Dose: 1 tab Citalopram Hydrobromide (Celexa) 20 mg PO DAILY [facility] Last Admin: 08/05/19 07:59 Dose: 20 mg Cyanocobalamin (Vitamin B12) 500 mcg PO DAILY [facility] Last Admin: 08/05/19 07:56 Dose: 500 mcg Docusate Sodium (Colace) 200 mg PO BID PRN PRN Reason: Constipation Enoxaparin Sodium (Lovenox) 40 mg SUBCUT Q24H [facility] Last Admin: 08/04/19 17:24 Dose: 40 mg Folic Acid (Folic Acid) 0.5 mg PO BEDTIME [facility] Last Admin: 08/04/19 19:45 Dose: 0.5 mg Furosemide (Lasix) 40 mg PO DAILY [facility] Last Admin: 08/05/19 08:01 Dose: 40 mg Gabapentin (Neurontin) 300 mg PO 1400 [facility] Last Admin: 08/04/19 13:30 Dose: 300 mg Gabapentin (Neurontin) 600 mg PO BID [facility] Last Admin: 08/05/19 07:55 Dose: 600 mg Levofloxacin/Dextrose 500 mg/ (Premix) 100 mls @ 100 mls/hr IV Q24H [facility] Last Admin: 08/04/19 16:52 Dose: 100 mls/hr Potassium Chloride/Sodium Chloride (1/2 Ns With 20 Meq Kcl) 1,000 mls @ 50 mls/ hr IV ASDIRECTED [facility] Last Admin: 08/03/19 23:32 Dose: 50 mls/hr Ibuprofen (Motrin) 600 mg PO Q6H PRN PRN Reason: Pain/Fever Last Admin: 08/03/19 23:32 Dose: 600 mg Magnesium Chloride (Mag-64) 64 mg PO BIDMEALS [facility] Last Admin: 08/05/19 08:00 Dose: 64 mg Methylprednisolone Sodium Succinate (Solu-Medrol) 62.5 mg IVPUSH Q12H [facility] Last Admin: 08/05/19 08:04 Dose: 62.5 mg Mometasone Furoate/Formoterol Fumar (Dulera 200-5 Mcg) 2 puff IH BIDRT [facility] Last Admin: 08/05/19 07:55 Dose: 2 inh Ondansetron HCl (Zofran Odt) 4 mg PO Q6H PRN PRN Reason: Nausea Last Admin: 08/04/19 10:35 Dose: 4 mg Oxycodone/Acetaminophen (Percocet 325-5 Mg) 1 - 2 tab PO Q6H PRN PRN Reason: Pain Pantoprazole Sodium (Protonix) 40 mg PO ACBREAKFAST [facility] Last Admin: 08/05/19 06:02 Dose: 40 mg Phenytoin Sodium (Phenytoin) 100 mg PO BID [facility] Last Admin: 08/05/19 08:00 Dose: 100 mg Ropinirole HCl (Requip) 0.5 mg PO 0800,1200 [facility] Last Admin: 08/05/19 07:56 Dose: 0.5 mg Ropinirole HCl (Requip) 1 mg PO BEDTIME [facility] Last Admin: 08/04/19 19:49 Dose: 1 mg Sertraline HCl (Zoloft) 100 mg PO DAILY [facility] Last Admin: 08/05/19 07:56 Dose: 100 mg Sodium Chloride (Saline Flush) 10 ml FLUSH ASDIRECTED PRN PRN Reason: Keep Vein Open Temazepam (Restoril) 15 mg PO BEDTIME PRN PRN Reason: Sleep Last Admin: 08/05/19 00:28 Dose: 15 mg Tramadol HCl (Ultram) 50 mg PO Q8H PRN PRN Reason: Pain Discontinued Medications Magnesium Sulfate/Dextrose 2 (gm/ Premix) 200 mls @ 100 mls/hr IV ONETIME ONE Stop: 08/04/19 10:37 Last Admin: 08/04/19 09:41 Dose: 100 mls/hr Iopamidol (Isovue-370 (76%)) 100 ml IVPUSH ONETIME ONE Stop: 08/03/19 18:30 Last Admin: 08/03/19 19:07 Dose: 100 ml Non-Formulary Medication (Potassium [Potassium]) 99 mg PO DAILY [facility] Last Admin: 08/04/19 20:24 Dose: Not Given - Exam Quality Assessment: Supplemental Oxygen (2 L NC) General: Alert, Oriented, Co[place] Neck: Supple Lungs: Normal Respiratory Effort, Wheezing (scattered throughout). No: Clear to Auscultation Cardiovascular: Regular Rate, Regular Rhythm GI/Abdominal Exam: Normal Bowel Sounds, Soft, Non-Tender Back Exam: Normal Inspection, Full Range of Motion Extremities: Normal Inspection, Normal Range of Motion, Non-Tender, No Pedal Edema, Normal Capillary Refill Peripheral Pulses: 2+: Radial (L), Radial (R) Skin: Warm, Dry, Intact Neurological: No New Focal Deficit Psy/Mental Status: Alert, Normal Affect, Normal Mood Sepsis Event Note - Evaluation Sepsis Screening Result: No Definite Risk - Focused Exam Vital Signs: Vital Signs Temp Pulse Resp BP Pulse Ox 08/05/19 04:00 36.1 C 85 20 127/56 L 93 L 08/04/19 23:24 37.1 C 74 20 117/46 L 94 L Date Exam was Performed: 08/05/19 Time Exam was Performed: 08:23 - Problem List & Annotations (1) Bronchiolitis SNOMED Code(s): 3891509 Code(s): J21.9 - ACUTE BRONCHIOLITIS, UNSPECIFIED Status: Acute Priority : Medium Current Visit: Yes (2) Hypoxia SNOMED Code(s): 067769454 Code(s): R09.02 - HYPOXEMIA Status: Acute Priority: High Current Visit : Yes Annotation/Comment:: improving (3) Respiratory distress SNOMED Code(s): 837151161 Code(s): R06.03 - ACUTE RESPIRATORY DISTRESS Status: Acute Priority: High Current Visit: Yes Annotation/Comment:: resolved - Problem List Review Problem List Initiated/Reviewed/Updated: Yes - Assessment Assessment:: Acute infectious bronchiolitis Respiratory Distress Hypoxia - Plan Plan:: Patient admits to feeling better today, states breathing easier. She did require oxygen during the night, sats now 96% on 2 liters. Now afebrile. Lung sounds noted to have expiratory wheezing throughout. ABGs yesterday did note oxygen sat of 85%. WBC was normal at 9.5. Potassium slightly low at 3.3, magnesium 1.6. CRP 2.8. Influenza was negative. Chest xray was essentially negative so did proceed with CT scan of chest. CT read shows infectious bronchiolitis. Will continue with IV antibiotics. Add solu medrol today. Continue nebs. Magnesium 2 gm IV given as magnesium yesterday was 1.6. Will repeat labs in am. 08/05/2019 0826 the pt does appear to be improving well, will continue current treatment plan, will reassess in the morning and PRN, adjustments to the tx plan will bemade as needed and will plan for possible DC in am. Will ambulate without O2 to assess oxygen saturations
[2019-08-05] MEDS: Levofloxacin/Dextrose 5%-Water 500 MG in Premix Bag 1 BAG IV SCH (17:16)
[2019-08-05] MEDS: Enoxaparin 40 MG/0.4 ML Syringe SUBCUT SCH (19:39)
[2019-08-05] MEDS: amLODIPine 2.5 MG Tab PO SCH (19:41)
[2019-08-05] MEDS: Folic Acid 1 MG Tab PO SCH (19:42)
[2019-08-05] MEDS: rOPINIRole 1 MG Tab PO SCH (19:43)
[2019-08-06] MEDS: Temazepam 15 MG Cap PO PRN (00:31)
[2019-08-06] MEDS: Pantoprazole 40 MG Tab.CR PO SCH (06:04)
[2019-08-06] MEDS: Acetaminophen 325 MG Tab PO PRN ×2 (06:15→20:11)
[2019-08-06] MEDS: Albuterol/Ipratropium 3.0-0.5 MG/3 ML Neb Soln NEB SCH ×4 (07:38→19:48)
[2019-08-06] MEDS: atorvaSTATin 20 MG Tab PO SCH (07:39)
[2019-08-06] MEDS: rOPINIRole 0.25 MG Tab PO SCH ×2 (07:39→11:45)
[2019-08-06] MEDS: Sertraline 100 MG Tab PO SCH (07:39)
[2019-08-06] MEDS: Citalopram 10 MG Tab PO SCH (07:40)
[2019-08-06] MEDS: Phenytoin 100 MG Cap.ER PO SCH ×2 (07:41→19:50)
[2019-08-06] MEDS: Magnesium Chloride 64 MG Tab.ER PO SCH ×2 (07:41→17:31)
[2019-08-06] MEDS: Cyanocobalamin (Vitamin B12) 1,000 MCG Tab PO SCH (07:41)
[2019-08-06] MEDS: Furosemide 40 MG Tab PO SCH (07:42)
[2019-08-06] MEDS: Gabapentin 300 MG Cap PO SCH ×3 (07:42→19:49)
[2019-08-06] MEDS: Aspirin 81 MG Tab.EC PO SCH (07:42)
[2019-08-06] MEDS: Calcium Carbonate/Vitamin D3 1250 MG-200 Unit Tab PO SCH ×3 (07:42→19:50)
[2019-08-06] MEDS: methylPREDNISolone Sodium Succinate 125 MG/2 ML SDV IVPUSH SCH ×2 (07:43→19:48)
[2019-08-06] MEDS: Formoterol/Mometasone 200-5 MCG 8.8 GM Inhaler IH SCH ×2 (07:43→19:50)
--- NOTE | 2019-08-06 12:38 | PCM.PN ---
- General Info Date of Service: 08/06/19 Admission Dx/Problem (Free Text): Pneumonia Functional Status: Reports: Tolerating Diet, Ambulating, Urinating - Review of Systems General: Denies: Fever HEENT: Reports: No Symptoms. Denies: Sinus Congestion, Sore Throat Pulmonary: Reports: Shortness of Breath, Cough, Wheezing Cardiovascular: Denies: Chest Pain Gastrointestinal: Denies: Abdominal Pain, Diarrhea, Nausea, Vomiting Genitourinary: Reports: No Symptoms Musculoskeletal: Reports: No Symptoms. Denies: Neck Pain, Back Pain Skin: Reports: No Symptoms Neurological: Reports: No Symptoms. Denies: Confusion, Dizziness, Headache Psychiatric: Reports: No Symptoms - Patient Data Vitals - Most Recent: Last Vital Signs Temp 36.6 C 08/06/19 11:48 Pulse 76 08/06/19 11:48 Resp 18 08/06/19 11:48 BP 148/72 H 08/06/19 11:48 Pulse Ox 94 L 08/06/19 11:48 Weight - Most Recent: 74.888 kg Efrain Results Last 24 Hours: Microbiology 08/04/19 09:00 Gram Stain - Final Sputum - Expectorated Sputum Culture - Final 08/03/19 15:26 Aerobic Blood Culture - Preliminary Blood - Venous NO GROWTH AFTER 2 DAYS Anaerobic Blood Culture - Final Med Orders - Current: Current Medications Acetaminophen (Tylenol) 650 mg PO Q4H PRN PRN Reason: Pain (Mild 1-3)/fever Last Admin: 08/06/19 06:15 Dose: 650 mg Albuterol (Proventil Neb Soln) 2.5 mg INH Q6H PRN PRN Reason: Shortness of Breath Albuterol/Ipratropium (Duoneb 3.0-0.5 Mg/3 Ml) 3 ml NEB QIDRT [facility] Last Admin: 08/06/19 11:45 Dose: 3 ml Amlodipine Besylate (Norvasc) 5 mg PO BEDTIME [facility] Last Admin: 08/05/19 19:41 Dose: 5 mg Aspirin (Halfprin) 81 mg PO DAILY [facility] Last Admin: 08/06/19 07:42 Dose: 81 mg Atorvastatin Calcium (Lipitor) 40 mg PO DAILY [facility] Last Admin: 08/06/19 07:39 Dose: 40 mg Budesonide (Pulmicort) 0.5 mg INH BID PRN PRN Reason: Shortness of Breath Calcium Carbonate (Calcium Carbonate/Vitamin D 1250 Mg-200 Unit) 1 tab PO TID [facility] Last Admin: 08/06/19 07:42 Dose: 1 tab Citalopram Hydrobromide (Celexa) 20 mg PO DAILY [facility] Last Admin: 08/06/19 07:40 Dose: 20 mg Cyanocobalamin (Vitamin B12) 500 mcg PO DAILY [facility] Last Admin: 08/06/19 07:41 Dose: 500 mcg Docusate Sodium (Colace) 200 mg PO BID PRN PRN Reason: Constipation Enoxaparin Sodium (Lovenox) 40 mg SUBCUT Q24H [facility] Last Admin: 08/05/19 19:39 Dose: 40 mg Folic Acid (Folic Acid) 0.5 mg PO BEDTIME [facility] Last Admin: 08/05/19 19:42 Dose: 0.5 mg Furosemide (Lasix) 40 mg PO DAILY [facility] Last Admin: 08/06/19 07:42 Dose: 40 mg Gabapentin (Neurontin) 300 mg PO 1400 [facility] Last Admin: 08/05/19 14:10 Dose: 300 mg Gabapentin (Neurontin) 600 mg PO BID [facility] Last Admin: 08/06/19 07:42 Dose: 600 mg Levofloxacin/Dextrose 500 mg/ (Premix) 100 mls @ 100 mls/hr IV Q24H [facility] Last Admin: 08/05/19 17:16 Dose: 100 mls/hr Ibuprofen (Motrin) 600 mg PO Q6H PRN PRN Reason: Pain/Fever Last Admin: 08/03/19 23:32 Dose: 600 mg Magnesium Chloride (Mag-64) 64 mg PO BIDMEALS [facility] Last Admin: 08/06/19 07:41 Dose: 64 mg Methylprednisolone Sodium Succinate (Solu-Medrol) 62.5 mg IVPUSH Q12H [facility] Last Admin: 08/06/19 07:43 Dose: 62.5 mg Mometasone Furoate/Formoterol Fumar (Dulera 200-5 Mcg) 2 puff IH BIDRT [facility] Last Admin: 08/06/19 07:43 Dose: 2 inh Ondansetron HCl (Zofran Odt) 4 mg PO Q6H PRN PRN Reason: Nausea Last Admin: 08/04/19 10:35 Dose: 4 mg Oxycodone/Acetaminophen (Percocet 325-5 Mg) 1 - 2 tab PO Q6H PRN PRN Reason: Pain Pantoprazole Sodium (Protonix) 40 mg PO ACBREAKFAST [facility] Last Admin: 08/06/19 06:04 Dose: 40 mg Phenytoin Sodium (Phenytoin) 100 mg PO BID [facility] Last Admin: 08/06/19 07:41 Dose: 100 mg Ropinirole HCl (Requip) 0.5 mg PO 0800,1200 [facility] Last Admin: 08/06/19 11:45 Dose: 0.5 mg Ropinirole HCl (Requip) 1 mg PO BEDTIME [facility] Last Admin: 08/05/19 19:43 Dose: 1 mg Sertraline HCl (Zoloft) 100 mg PO DAILY [facility] Last Admin: 08/06/19 07:39 Dose: 100 mg Sodium Chloride (Saline Flush) 10 ml FLUSH ASDIRECTED PRN PRN Reason: Keep Vein Open Temazepam (Restoril) 15 mg PO BEDTIME PRN PRN Reason: Sleep Last Admin: 08/06/19 00:31 Dose: 15 mg Tramadol HCl (Ultram) 50 mg PO Q8H PRN PRN Reason: Pain Discontinued Medications Potassium Chloride/Sodium Chloride (1/2 Ns With 20 Meq Kcl) 1,000 mls @ 50 mls/ hr IV ASDIRECTED [facility] Last Admin: 08/03/19 23:32 Dose: 50 mls/hr Magnesium Sulfate/Dextrose 2 (gm/ Premix) 200 mls @ 100 mls/hr IV ONETIME ONE Stop: 08/04/19 10:37 Last Admin: 08/04/19 09:41 Dose: 100 mls/hr Iopamidol (Isovue-370 (76%)) 100 ml IVPUSH ONETIME ONE Stop: 08/03/19 18:30 Last Admin: 08/03/19 19:07 Dose: 100 ml Non-Formulary Medication (Potassium [Potassium]) 99 mg PO DAILY [facility] Last Admin: 08/04/19 20:24 Dose: Not Given - Exam General: Alert, Oriented HEENT: Pupils Equal Neck: Supple, Trachea Midline Lungs: Normal Respiratory Effort, Wheezing (scattered). No: Clear to Auscultation Cardiovascular: Regular Rate, Regular Rhythm GI/Abdominal Exam: Normal Bowel Sounds, Soft, Non-Tender (Female) Exam: Normal External Exam Back Exam: Normal Inspection, Full Range of Motion Extremities: Normal Inspection, Normal Range of Motion, Non-Tender, No Pedal Edema, Normal Capillary Refill Peripheral Pulses: 2+: Radial (L), Radial (R), Posterior Tibial (L), Posterior Tibial (R) Skin: Warm, Dry, Intact Neurological: No New Focal Deficit Psy/Mental Status: Alert, Normal Affect, Normal Mood Sepsis Event Note - Evaluation Sepsis Screening Result: No Definite Risk - Focused Exam Vital Signs: Vital Signs Temp Temp Pulse Resp BP Pulse Ox 08/06/19 11:48 36.6 C 76 18 148/72 H 94 L 08/06/19 08:00 36.8 C 75 20 150/78 H 93 L 08/06/19 04:00 36.7 C 73 20 134/49 L 92 L Date Exam was Performed: 08/06/19 Time Exam was Performed: 12:34 - Problem List & Annotations (1) Bronchiolitis SNOMED Code(s): 5049824 Code(s): J21.9 - ACUTE BRONCHIOLITIS, UNSPECIFIED Status: Acute Priority : Medium Current Visit: Yes (2) Hypoxia SNOMED Code(s): 950178764 Code(s): R09.02 - HYPOXEMIA Status: Acute Priority: High Current Visit : Yes Annotation/Comment:: improving (3) Respiratory distress SNOMED Code(s): 386063657 Code(s): R06.03 - ACUTE RESPIRATORY DISTRESS Status: Acute Priority: High Current Visit: Yes Annotation/Comment:: resolved - Problem List Review Problem List Initiated/Reviewed/Updated: Yes - Assessment Assessment:: Acute infectious bronchiolitis Respiratory Distress Hypoxia - Plan Plan:: Patient admits to feeling better today, states breathing easier. She did require oxygen during the night, sats now 96% on 2 liters. Now afebrile. Lung sounds noted to have expiratory wheezing throughout. ABGs yesterday did note oxygen sat of 85%. WBC was normal at 9.5. Potassium slightly low at 3.3, magnesium 1.6. CRP 2.8. Influenza was negative. Chest xray was essentially negative so did proceed with CT scan of chest. CT read shows infectious bronchiolitis. Will continue with IV antibiotics. Add solu medrol today. Continue nebs. Magnesium 2 gm IV given as magnesium yesterday was 1.6. Will repeat labs in am. 08/05/2019 0826 the pt does appear to be improving well, will continue current treatment plan, will reassess in the morning and PRN, adjustments to the tx plan will be made as needed and will plan for possible DC in am. Will ambulate without O2 to assess oxygen saturations 08/06/2019 1230 The patient was evaluated today in the hospital, the patient advises that she still has some shortness of breath. The patient is wearing her oxygen at 2 L nasal cannula. The patient's oxygen saturation does drop into the lower 90s despite O2 at 2 L nasal cannula. The patient does have some scattered expiratory wheezing, the patient does advise she started to feel better. She denies any abdominal pain she has had no nausea vomiting she has had no diarrhea no constipation. The patient's labs been repeated and are progressing well. The patient will be kept another day and treatment plan will be continued and disposition will be made tomorrow and I suspect the patient will probably be ready for discharge tomorrow. It is a possibility that the patient might initially need oxygen therapy at home temporarily.
[2019-08-06] MEDS: Levofloxacin/Dextrose 5%-Water 500 MG in Premix Bag 1 BAG IV SCH (17:30)
[2019-08-06] MEDS: Enoxaparin 40 MG/0.4 ML Syringe SUBCUT SCH (17:32)
[2019-08-06] MEDS: amLODIPine 2.5 MG Tab PO SCH (19:48)
[2019-08-06] MEDS: rOPINIRole 1 MG Tab PO SCH (19:48)
[2019-08-06] MEDS: Folic Acid 1 MG Tab PO SCH (19:48)
[2019-08-07] MEDS: Temazepam 15 MG Cap PO PRN (00:32)
[2019-08-07] MEDS: Acetaminophen 325 MG Tab PO PRN (03:52)
[2019-08-07] MEDS: Pantoprazole 40 MG Tab.CR PO SCH (06:16)
[2019-08-07] MEDS: Gabapentin 300 MG Cap PO SCH (08:08)
[2019-08-07] MEDS: atorvaSTATin 20 MG Tab PO SCH (08:09)
[2019-08-07] MEDS: Furosemide 40 MG Tab PO SCH (08:09)
[2019-08-07] MEDS: Sertraline 100 MG Tab PO SCH (08:09)
[2019-08-07] MEDS: Calcium Carbonate/Vitamin D3 1250 MG-200 Unit Tab PO SCH (08:09)
[2019-08-07] MEDS: Magnesium Chloride 64 MG Tab.ER PO SCH (08:09)
[2019-08-07] MEDS: Aspirin 81 MG Tab.EC PO SCH (08:09)
[2019-08-07] MEDS: Citalopram 10 MG Tab PO SCH (08:09)
[2019-08-07] MEDS: Albuterol/Ipratropium 3.0-0.5 MG/3 ML Neb Soln NEB SCH (08:09)
[2019-08-07] MEDS: methylPREDNISolone Sodium Succinate 125 MG/2 ML SDV IVPUSH SCH (08:09)
[2019-08-07] MEDS: Phenytoin 100 MG Cap.ER PO SCH (08:09)
[2019-08-07] MEDS: Formoterol/Mometasone 200-5 MCG 8.8 GM Inhaler IH SCH (08:10)
[2019-08-07] MEDS: rOPINIRole 0.25 MG Tab PO SCH (08:16)
[2019-08-07] MEDS: Cyanocobalamin (Vitamin B12) 1,000 MCG Tab PO SCH (08:17)
[2019-08-07 10:00] VITALS: BP 132/75; PULSE 69
--- NOTE | 2019-08-07 11:13 | PCM.DCSUM1 ---
Discharge Summary - Hospital Course Free Text/Narrative:: Patient presented to clinic with complaints of weakness, sinus congestion, cough and wheezing for 5 days. Was not eating or drinking well. Oxygen sat in the clinic was 88%. Labs and xray were done which were negative. Admitted for concerns due to hypoxia, possible pneumonia. Started on IV antibiotics with plans to obtain CT scan. Diagnosis: Stroke: No Modified Chandler Scale: No Symptoms at All Modified Lewis Scale Score: 0 - Discharge Data Discharge Date: 08/07/19 Discharge Disposition: Home, W Home Health Agency 06 Condition: Fair - Referral to Home Health Date of Face to Face Encounter: 08/07/19 Reason for Homebound Status: Unable to drive due osteoarthritis, dyspnea. Primary Care Physician: Mikael Ennis MD Skilled Need: Nursing to monitor lung sounds, blood pressure, med compliance. Will need to be on home oxygen. Physical therapy for strengthening and ambulation. Occupational therapy for home safety/ADLs. - Discharge Diagnosis/Problem(s) (1) Bronchiolitis SNOMED Code(s): 3628509 ICD Code: J21.9 - ACUTE BRONCHIOLITIS, UNSPECIFIED Status: Acute Priority : Medium (2) Respiratory distress SNOMED Code(s): 627316821 ICD Code: R06.03 - ACUTE RESPIRATORY DISTRESS Status: Acute Priority: High Problem Details: resolved (3) Hypoxia SNOMED Code(s): 998715660 ICD Code: R09.02 - HYPOXEMIA Status: Acute Priority: High Problem Details: improving - Patient Summary/Data Complications: none Hospital Course: Patient admits to feeling better today. She feels less short of breath than on admit. Is ambulating short distances with oxygen. Lung sounds diminished, fine expiratory wheezing noted. Unable to wean off oxygen, sats drop to 88% on room air. Appetite has returned. CT scan of chest did show infectious bronchiolitis. Has been on IV Levaquin through stay, will discharge home on same. Labs have remained normal. Patient discharged home on Levaquin. Prednisone for 3 days. Neb treatments. Follow up with Dr. Ennis in one week. - Patient Instructions Diet: Usual Diet as Tolerated Activity: As Tolerated - Discharge Plan *PRESCRIPTION DRUG MONITORING PROGRAM REVIEWED*: No *COPY OF PRESCRIPTION DRUG MONITORING REPORT IN PATIENT JIMY: No Prescriptions/Med Rec: Albuterol/Ipratropium [DuoNeb 3.0-0.5 MG/3 ML] 3 ml NEB QIDRT #1 box Levofloxacin [Levaquin] 500 mg PO DAILY #7 tablet Magnesium Chloride [Mag-64] 64 mg PO BIDMEALS #30 tab.er predniSONE [Prednisone] 20 mg PO DAILY #6 tablet Home Medications: Home Meds Aspirin [Halfprin] 81 mg PO DAILY 06/21/13 [History] Docusate Sodium [Colace] 200 mg PO BID PRN 06/21/13 [History] Omeprazole 20 mg PO DAILY 06/21/13 [History] Phenytoin Sodium Extended [Dilantin] 100 mg PO BID 06/21/13 [History] Sertraline HCl 100 mg PO DAILY 06/21/13 [History] Furosemide 40 mg PO DAILY 09/09/14 [History] atorvaSTATin [Lipitor] 40 mg PO DAILY 09/09/14 [History] Ondansetron [Zofran] 4 mg PO Q6H PRN 05/10/15 [History] amLODIPine [Norvasc] 5 mg PO BEDTIME 05/10/15 [History] rOPINIRole HCl [Requip] 0.5 mg PO 0800,1200 10/10/15 [History] Cyanocobalamin (Vitamin B12) [Vitamin B12] 500 mcg PO DAILY 08/02/17 [History] Folic Acid 400 mcg PO BEDTIME 08/02/17 [History] Potassium 99 mg PO DAILY 08/02/17 [History] rOPINIRole HCl [Requip] 1 mg PO BEDTIME 08/02/17 [History] Budesonide [Pulmicort] 1 inh INH BID PRN 08/03/17 [History] Budesonide/Formoterol [Symbicort 160-4.5 MCG] 2 inh INH BID 08/03/17 [History] Nitroglycerin [Nitrostat] 0.4 mg SL Q5M PRN tab.sl 03/08/18 [Rx] Gabapentin [Neurontin] 300 mg PO 1400 03/10/18 [History] Gabapentin [Neurontin] 600 mg PO BID 03/10/18 [History] Calcium Carbonate/Vitamin D3 [Calcium Carbonate/Vitamin D 1250 MG-200 Unit] 1 tab PO TID 07/20/18 [History] Budesonide/Formoterol Fumarate [Symbicort 160-4.5 Mcg Inhaler] 2 inh INH BID [History] Citalopram Hydrobromide [Celexa] 20 mg PO DAILY 08/03/19 [History] Denosumab [Prolia] 1 injection SQ Q6M 08/03/19 [History] Hydrocortisone [Anusol-HC] 1 applic TOP BID PRN 08/03/19 [History] oxyCODONE HCl/Acetaminophen [Oxycodone-Acetaminophen 5-325] 1 - 2 tab PO Q6H PRN 08/03/19 [History] traMADol HCl [Tramadol HCl] 50 mg PO Q8H PRN 08/03/19 [History] Albuterol/Ipratropium [DuoNeb 3.0-0.5 MG/3 ML] 3 ml NEB QIDRT #1 box 08/07/19 [ Rx] Levofloxacin [Levaquin] 500 mg PO DAILY #7 tablet 08/07/19 [Rx] Magnesium Chloride [Mag-64] 64 mg PO BIDMEALS #30 tab.er 08/07/19 [Rx] predniSONE [Prednisone] 20 mg PO DAILY #6 tablet 08/07/19 [Rx] Referrals: Mikael Ennis MD [Primary Care Provider] - (Follow up with Dr. Ennis in one week) - Discharge Summary/Plan Comment DC Time >30 min.: No - General Info Date of Service: 08/08/19 Admission Dx/Problem (Free Text: Pneumonia Functional Status: Reports: Pain Controlled, Tolerating Diet, Ambulating - Review of Systems General: Reports: Weakness, Fatigue, Malaise. Denies: Fever HEENT: Reports: No Symptoms Pulmonary: Reports: Shortness of Breath, Cough, Wheezing Cardiovascular: Denies: Chest Pain, Edema, Lightheadedness Gastrointestinal: Denies: Abdominal Pain, Nausea Genitourinary: Reports: No Symptoms Musculoskeletal: Reports: Back Pain Skin: Reports: No Symptoms Neurological: Reports: Weakness - Patient Data Vitals - Most Recent: Last Vital Signs Temp 98.3 F 08/07/19 08:00 Pulse 69 08/07/19 08:00 Resp 20 08/07/19 08:00 BP 132/75 08/07/19 08:00 Pulse Ox 93 L 08/07/19 08:00 Weight - Most Recent: 165 lb 1.6 oz JAMEEL Results - Last 24 hrs: Microbiology 08/03/19 15:26 Aerobic Blood Culture - Preliminary Blood - Venous NO GROWTH AFTER 3 DAYS Anaerobic Blood Culture - Final 08/04/19 09:00 Gram Stain - Final Sputum - Expectorated Sputum Culture - Final Med Orders - Current: Current Medications Acetaminophen (Tylenol) 650 mg PO Q4H PRN PRN Reason: Pain (Mild 1-3)/fever Last Admin: 08/07/19 03:52 Dose: 650 mg Albuterol (Proventil Neb Soln) 2.5 mg INH Q6H PRN PRN Reason: Shortness of Breath Albuterol/Ipratropium (Duoneb 3.0-0.5 Mg/3 Ml) 3 ml NEB QIDRT [facility] Last Admin: 08/07/19 08:09 Dose: 3 ml Amlodipine Besylate (Norvasc) 5 mg PO BEDTIME [facility] Last Admin: 08/06/19 19:48 Dose: 5 mg Aspirin (Halfprin) 81 mg PO DAILY [facility] Last Admin: 08/07/19 08:09 Dose: 81 mg Atorvastatin Calcium (Lipitor) 40 mg PO DAILY [facility] Last Admin: 08/07/19 08:09 Dose: 40 mg Budesonide (Pulmicort) 0.5 mg INH BID PRN PRN Reason: Shortness of Breath Calcium Carbonate (Calcium Carbonate/Vitamin D 1250 Mg-200 Unit) 1 tab PO TID [facility] Last Admin: 08/07/19 08:09 Dose: 1 tab Citalopram Hydrobromide (Celexa) 20 mg PO DAILY [facility] Last Admin: 08/07/19 08:09 Dose: 20 mg Cyanocobalamin (Vitamin B12) 500 mcg PO DAILY [facility] Last Admin: 08/07/19 08:17 Dose: 500 mcg Docusate Sodium (Colace) 200 mg PO BID PRN PRN Reason: Constipation Enoxaparin Sodium (Lovenox) 40 mg SUBCUT Q24H [facility] Last Admin: 08/06/19 17:32 Dose: 40 mg Folic Acid (Folic Acid) 0.5 mg PO BEDTIME [facility] Last Admin: 08/06/19 19:48 Dose: 0.5 mg Furosemide (Lasix) 40 mg PO DAILY [facility] Last Admin: 08/07/19 08:09 Dose: 40 mg Gabapentin (Neurontin) 300 mg PO 1400 [facility] Last Admin: 08/06/19 13:24 Dose: 300 mg Gabapentin (Neurontin) 600 mg PO BID [facility] Last Admin: 08/07/19 08:08 Dose: 600 mg Levofloxacin/Dextrose 500 mg/ (Premix) 100 mls @ 100 mls/hr IV Q24H [facility] Last Admin: 08/06/19 17:30 Dose: 100 mls/hr Ibuprofen (Motrin) 600 mg PO Q6H PRN PRN Reason: Pain/Fever Last Admin: 08/03/19 23:32 Dose: 600 mg Magnesium Chloride (Mag-64) 64 mg PO BIDMEALS [facility] Last Admin: 08/07/19 08:09 Dose: 64 mg Methylprednisolone Sodium Succinate (Solu-Medrol) 62.5 mg IVPUSH Q12H [facility] Last Admin: 08/07/19 08:09 Dose: 62.5 mg Mometasone Furoate/Formoterol Fumar (Dulera 200-5 Mcg) 2 puff IH BIDRT [facility] Last Admin: 08/07/19 08:10 Dose: 2 inh Ondansetron HCl (Zofran Odt) 4 mg PO Q6H PRN PRN Reason: Nausea Last Admin: 08/04/19 10:35 Dose: 4 mg Oxycodone/Acetaminophen (Percocet 325-5 Mg) 1 - 2 tab PO Q6H PRN PRN Reason: Pain Pantoprazole Sodium (Protonix) 40 mg PO ACBREAKFAST [facility] Last Admin: 08/07/19 06:16 Dose: 40 mg Phenytoin Sodium (Phenytoin) 100 mg PO BID [facility] Last Admin: 08/07/19 08:09 Dose: 100 mg Ropinirole HCl (Requip) 0.5 mg PO 0800,1200 [facility] Last Admin: 08/07/19 08:16 Dose: 0.5 mg Ropinirole HCl (Requip) 1 mg PO BEDTIME [facility] Last Admin: 08/06/19 19:48 Dose: 1 mg Sertraline HCl (Zoloft) 100 mg PO DAILY [facility] Last Admin: 08/07/19 08:09 Dose: 100 mg Sodium Chloride (Saline Flush) 10 ml FLUSH ASDIRECTED PRN PRN Reason: Keep Vein Open Temazepam (Restoril) 15 mg PO BEDTIME PRN PRN Reason: Sleep Last Admin: 08/07/19 00:32 Dose: 15 mg Tramadol HCl (Ultram) 50 mg PO Q8H PRN PRN Reason: Pain Discontinued Medications Potassium Chloride/Sodium Chloride (1/2 Ns With 20 Meq Kcl) 1,000 mls @ 50 mls/ hr IV ASDIRECTED [facility] Last Admin: 08/03/19 23:32 Dose: 50 mls/hr Magnesium Sulfate/Dextrose 2 (gm/ Premix) 200 mls @ 100 mls/hr IV ONETIME ONE Stop: 08/04/19 10:37 Last Admin: 08/04/19 09:41 Dose: 100 mls/hr Iopamidol (Isovue-370 (76%)) 100 ml IVPUSH ONETIME ONE Stop: 08/03/19 18:30 Last Admin: 08/03/19 19:07 Dose: 100 ml Non-Formulary Medication (Potassium [Potassium]) 99 mg PO DAILY [facility] Last Admin: 08/04/19 20:24 Dose: Not Given - Exam Quality Assessment: Reports: Supplemental Oxygen General: Reports: Alert, Oriented HEENT: Reports: Mucous Membr. Moist/[place] Neck: Reports: Supple Lungs: Reports: Decreased Breath Sounds, Wheezing Cardiovascular: Reports: Regular Rate, Regular Rhythm GI/Abdominal Exam: Normal Bowel Sounds, Soft, Non-Tender Extremities: Normal Inspection, No Pedal Edema Skin: Reports: Warm, Dry Neurological: Reports: No New Focal Deficit
== END 2019-08-07 11:38 | disposition home health service (06) | DRG 202 ==
LOC: CC.MS 15:17 → UNDOADMIN 15:17 → CC.MS 15:22
PROVIDERS: ADMIT Nurse Practitioner Family; ATTEND Family Medicine
DX: J21.9 Acute bronchiolitis, unspecified (principal); J18.9 Pneumonia, unspecified organism; J44.9 Chronic obstructive pulmonary disease, unspecified; R09.02 Hypoxemia; Z99.81 Dependence on supplemental oxygen; Z88.0 Allergy status to penicillin; Z88.2 Allergy status to sulfonamides; Z88.8 Allergy status to other drugs, medicaments and biological substances
CPT/HCPCS: 36415; 36600; 71046; 71260; 80048; 81001; 82803; 83605; 83735; 84484; 85025; 85379; 86140; 87040; 87070; 87086; 87205; 87804; 93005; 93010; 94640; A9270-GY; J1650; J1956; J2930; J3475; J3480; J7620-GY; Q9967

== ENCOUNTER 2020-04-30 19:45 | Observation (INO) | payer MEDICARE, MEDICAID ==
[2020-04-30] MEDS: Nitroglycerin 0.4 MG Tab.SL SL PRN (20:13)
--- NOTE | 2020-04-30 20:25 | EDM.PDOC ---
ED HPI GENERAL MEDICAL PROBLEM - General Chief Complaint: Chest Pain Stated Complaint: Chest Pain Time Seen by Provider: 04/30/20 20:25 Source of Information: Reports: Patient, RN History Limitations: Reports: No Limitations - History of Present Illness INITIAL COMMENTS - FREE TEXT/NARRATIVE: States that she has had chest pain and pressure for the last 2 days. She took a nitro at home without any relief. She states they are outdated. She did call home health and they advised her to come here to be evaluated. She was given 1 nitro after arriving here and her pain was completely relieved. She states that she has some peripheral edema normally and it isn't any more now than normal. She denies feeling SOB. No cough. Chest pain was midsternal and she described it as heavy and painful. Rated pain 5/10 when arriving here. She does have history of 3 stents in the past. Last time she was in the ER for chest pain was 03/24 and she had cardiolyte then that was normal. Onset Date: 04/29/20 Duration: Intermittent Location: Reports: Chest Associated Symptoms: Reports: Chest Pain. Denies: Cough, Fever/Chills, Nausea/Vomiting, Shortness of Breath - Related Data Allergies Allergy/AdvReac Type Severity Reaction Status Date / Time gluten Allergy Cannot Verified 04/30/20 20:16 Remember Penicillins Allergy Rash Verified 04/30/20 20:16 Sulfa (Sulfonamide Allergy Rash Verified 04/30/20 20:16 Antibiotics) ketorolac [From Toradol] AdvReac Vomiting Verified 04/30/20 20:16 propoxyphene AdvReac Vomiting Verified 04/30/20 20:16 [From Darvocet-N 100] Home Meds: Home Meds Aspirin [Halfprin] 81 mg PO DAILY 06/21/13 [History] Docusate Sodium [Colace] 200 mg PO BID PRN 06/21/13 [History] Omeprazole 20 mg PO DAILY 06/21/13 [History] Phenytoin Sodium Extended [Dilantin] 100 mg PO BID 06/21/13 [History] Furosemide 40 mg PO DAILY 09/09/14 [History] atorvaSTATin [Lipitor] 40 mg PO DAILY 09/09/14 [History] Ondansetron [Zofran] 4 mg PO Q8H PRN 05/10/15 [History] amLODIPine [Norvasc] 5 mg PO BEDTIME 05/10/15 [History] rOPINIRole HCl [Requip] 0.5 mg PO 0800,1200 10/10/15 [History] Cyanocobalamin (Vitamin B12) [Vitamin B12] 500 mcg PO DAILY 08/02/17 [History] Folic Acid 400 mcg PO DAILY 08/02/17 [History] Potassium 99 mg PO BEDTIME 08/02/17 [History] rOPINIRole HCl [Requip] 1 mg PO BEDTIME 08/02/17 [History] Budesonide [Pulmicort] 1 inh INH BID PRN 08/03/17 [History] Nitroglycerin [Nitrostat] 0.4 mg SL Q5M PRN tab.sl 03/08/18 [Rx] Gabapentin [Neurontin] 300 mg PO 1400 03/10/18 [History] Gabapentin [Neurontin] 600 mg PO BID 03/10/18 [History] Budesonide/Formoterol Fumarate [Symbicort 160-4.5 Mcg Inhaler] 2 inh INH BID 08/03/19 [History] Citalopram Hydrobromide [Celexa] 20 mg PO BEDTIME 08/03/19 [History] Denosumab [Prolia] 1 injection SQ Q6M 08/03/19 [History] traMADol HCl [Tramadol HCl] 50 mg PO Q8H PRN 08/03/19 [History] Magnesium Chloride [Mag-64] 64 mg PO BIDMEALS #30 tab.er 08/07/19 [Rx] Albuterol/Ipratropium [DuoNeb 3.0-0.5 MG/3 ML] 3 ml NEB QID 04/30/20 [History] Calcium Carbonate/Vitamin D3 [Calcium 600-Vit D3 800 Caplet] 1 tab PO TIDAC 04/30/20 [History] oxyCODONE HCl/Acetaminophen [Oxycodone-Acetaminophen 5-325] 1 - 2 tab PO Q6HR PRN 04/30/20 [History] Past Medical History Cardiovascular History: Reports: High Cholesterol, Hypertension Other Cardiovascular History: pt reports a "heart condition" but unable to recall what it is. Has had a cardiac stent placed, heart cath 10-31-15 due to cp--medical therapy; Respiratory History: Reports: Asthma, COPD Other Respiratory History: saw Dr. Prakash on 03-19-16; Pulmonary rehab ordered, PFT done at that time; denies using oxygen at home Gastrointestinal History: Reports: GERD Musculoskeletal History: Reports: Back Pain, Chronic Other Musculoskeletal History: left knee surgery Neurological History: Reports: Parkinson's, Seizure, Other (See Below) Other Neuro History: tremors of nervous system; says she has some dizziness at home, told Dr. Ennis Psychiatric History: Reports: Depression Other Psychiatric History: depression discussed; gets down with the fact that she cannot do what she wants to do; becomes more SOB at home and says it seems that she is not improving in that area; she used to walk outside, has not done that for years; does not go out socially much anymore; "I get down, but I would not do anything to myself." Dermatologic History: Reports: Eczema - Past Surgical History HEENT Surgical History: Reports: Tonsillectomy Cardiovascular Surgical History: Reports: Other (See Below) Other Cardiovascular Surgeries/Procedures: Angiogram Other Respiratory Surgeries/Procedures: attended pulmonary rehab in 2015, did 6 visits, last visit 04-24-16; did not return, had the stomach flu and wasn't feeling well to return. Called recently to schedule rehab again; seeing Dr. Prakash in August, wants to get back to exercising. She feels that she is doing less at home. Her Parkinsons makes it difficult to walk up the steps to her apartment. Gets tired if she tries to vacuum. She feels more SOB; she says she eats well, however, she has trouble lifting the spoon to her mouth due to her parkinsons. She has some eye problems, only causes her a problem when she tries to read or when laying in bed, difficult to see plainly. Encouraged to attend pulmonary rehab regularly. Will discuss an OT consult with Dr. Ennis or with OT; GI Surgical History: Reports: Appendectomy, Cholecystectomy Female Surgical History: Reports: Section, Hysterectomy Other Neurological Surgeries/Procedures: has had some dizziness at home--discussed, especially re: safety. to get up slowly, says she has discussed this with Dr. Ennis Musculoskeletal Surgical History: Reports: Knee Replacement, Other (See Below) Other Musculoskeletal Surgeries/Procedures:: TKA L 2013; 3 back surgeries since 1985 Social & Family History - Family History Family Medical History: No Pertinent Family History - Tobacco Use Tobacco Use Status *Q: Former Tobacco User Used Tobacco, but Quit: Yes Month/Year Tobacco Last Used: 2009 - Caffeine Use Caffeine Use: Reports: Coffee - Recreational Drug Use Recreational Drug Use: No - Living Situation & Occupation Living situation: Reports: , Alone Occupation: Retired ED ROS GENERAL - Review of Systems Review Of Systems: See Below Constitutional: Denies: Fever, Chills, Weakness HEENT: Reports: No Symptoms Respiratory: Denies: Shortness of Breath, Cough Cardiovascular: Reports: Chest Pain, Edema GI/Abdominal: Reports: No Symptoms : Reports: No Symptoms Skin: Reports: No Symptoms Neurological: Reports: No Symptoms Psychiatric: Reports: No Symptoms ED EXAM, GENERAL - Physical Exam Exam: See Below Exam Limited By: No Limitations General Appearance: Alert, WD/WN, Mild Distress Ears: Normal External Exam, Normal Canal, Normal TMs Nose: Normal Inspection Throat/Mouth: Normal Inspection, Normal Oropharynx Head: Atraumatic, Normocephalic Neck: Normal Inspection, Supple, Non-Tender, Full Range of Motion Respiratory/Chest: No Respiratory Distress, Lungs Clear, Normal Breath Sounds Cardiovascular: Normal Peripheral Pulses, Regular Rate, Rhythm, Other (1+ edema to ankles bilaterally.) GI/Abdominal: Normal Bowel Sounds, Soft, Non-Tender Extremities: Normal Inspection, Pedal Edema (1+ bilaterally.) Neurological: Alert, Oriented, Normal Cognition Psychiatric: Normal Affect, Normal Mood Skin Exam: Warm, Dry, Intact, Normal Color Course - Vital Signs Last Recorded V/S: Last Vital Signs Temp 98.1 F 04/30/20 20:26 Pulse 76 04/30/20 20:26 Resp 20 04/30/20 20:26 BP 180/70 H 04/30/20 20:26 Pulse Ox 94 L 04/30/20 20:26 - Orders/Labs/Meds Orders: Active Orders 24 hr Category Date Time Status EKG Documentation Completion [RC] STAT Care 04/30/20 20:01 Active Chest 2V [CR] Stat Exams 04/30/20 20:01 Taken Nitroglycerin [Nitrostat] Med 04/30/20 20:13 Active 0.4 mg SL Q5M PRN Medication Orders Nitroglycerin (Nitrostat) 0.4 mg SL Q5M PRN PRN Reason: Chest Pain Last Admin: 04/30/20 20:13 Dose: 0.4 mg Documented by: JARROD Labs: Laboratory Tests 04/30/20 04/30/20 04/30/20 Range/Units 20:01 20:01 20:01 WBC 8.9 (5.0-10.0) 10^3/uL RBC 4.64 (4.00-5.50) 10^6/uL Hgb 13.1 (12.0-16.0) g/dL Hct 41.3 (37.0-47.0) % MCV 89.0 (82.0-94.0) fL MCH 28.2 (27.0-32.0) pg MCHC 31.7 L (33.0-38.0) g/dL RDW Coeff of [place] 13.9 (11.0-15.0) % Plt Count 286 (150-400) 10^3/uL Neut % (Auto) 53.8 (35-85) % Lymph % (Auto) 30.8 (10-55) % [place] % (Auto) 10.3 (0-16) % Eos % (Auto) 4.7 (0-5) % Baso % (Auto) 0.4 (0-3) % Neut # (Auto) 4.79 (1.80-7.00) 10^3/uL Lymph # (Auto) 2.75 (1.00-4.80) 10^3/uL [place] # (Auto) 0.92 H (0.00-0.80) 10^3/uL Eos # (Auto) 0.42 (0.00-0.45) 10^3/uL Baso # (Auto) 0.04 10^3/uL PT 9.8 (9.7-12.3) SEC INR 0.97 (0.92-1.18) Sodium 143 (136-145) mEq/L Potassium 4.0 (3.5-5.0) mEq/L Chloride 108 H (98-106) mEq/L Carbon Dioxide 28 (21-32) mmol/L BUN 20 H (7-18) mg/dL Creatinine 0.8 (0.6-1.0) mg/dL Est Cr Clr Drug Dosing 40.96 mL/min Estimated GFR (MDRD) > 60 (>=60) mL/min Glucose 108 H (75-99) mg/dL Calcium 8.6 (8.4-10.1) mg/dL Total Bilirubin 0.1 (0.0-1.0) mg/dL AST 14 L (15-37) U/L ALT 19 (12-78) U/L Alkaline Phosphatase 101 (46-116) U/L Lactate Dehydrogenase 164 (100-190) U/L Creatine Kinase 62 (21-215) U/L Troponin I < 0.017 (0.00-0.06) ng/mL Total Protein 6.8 (6.4-8.2) g/dL Albumin 3.4 (3.4-5.0) g/dL Lipase 93 (73-393) U/L Meds: Medications Generic Name Dose Route Start Last Admin Trade Name Freq PRN Reason Stop Dose Admin Nitroglycerin 0.4 mg 04/30/20 20:13 04/30/20 20:13 Nitrostat SL 0.4 mg Q5M PRN Administration Chest Pain Discontinued Medications Generic Name Dose Route Start Last Admin Trade Name Freq PRN Reason Stop Dose Admin Aspirin 324 mg 04/30/20 20:56 04/30/20 21:14 Aspirin PO 04/30/20 20:57 324 mg ONETIME ONE Administration - Re-Assessments/Exams Free Text/Narrative Re-Assessment/Exam: 04/30/20 20:59 Discussed her lab results with her. Due to her history of prior stents and that the chest pain went away with nitro she needs work up. Will be admitted for observation and repeat labs in the morning. Departure - Departure Time of Disposition: 21:00 Disposition: Refer to Observation Condition: Fair Clinical Impression: Chest pain at rest Sepsis Event Note (ED) - Evaluation Sepsis Screening Result: No Definite Risk - Focused Exam Vital Signs: Vital Signs Temp Pulse Pulse Resp BP BP Pulse Ox 04/30/20 20:26 98.1 F 76 20 180/70 H 94 L 04/30/20 20:13 79 172/96 H 04/30/20 20:11 98.0 F 73 20 166/84 H 94 L 04/30/20 19:56 97.1 F 79 22 H 172/96 H 95 - Problem List & Annotations (1) Chest pain at rest SNOMED Code(s): 2218854 Code(s): R07.9 - CHEST PAIN, UNSPECIFIED Status: Acute Priority: High Current Visit: Yes - Problem List Review Problem List Initiated/Reviewed/Updated: Yes - My Orders Last 24 Hours: My Active Orders 04/30/20 20:01 EKG Documentation Completion [RC] STAT Chest 2V [CR] Stat 04/30/20 20:13 Nitroglycerin [Nitrostat] 0.4 mg SL Q5M PRN - Assessment/Plan Admission H&P: Please use this note as an admission H&P Last 24 Hours: My Active Orders 04/30/20 20:01 EKG Documentation Completion [RC] STAT Chest 2V [CR] Stat 04/30/20 20:13 Nitroglycerin [Nitrostat] 0.4 mg SL Q5M PRN
[2020-04-30 20:42] LABS: CHLORIDE,CL 108 mEq/L (98-106); SODIUM,NA 143 mEq/L (136-145)
[2020-04-30] MEDS ORDERED: Sodium Chloride 0.9% 10 ML Syringe FLUSH PRN (21:06)
[2020-04-30] MEDS ORDERED: Docusate Sodium 100 MG Cap PO PRN (21:11)
[2020-04-30] MEDS ORDERED: traMADol 50 MG Tab PO PRN (21:11)
[2020-04-30] MEDS ORDERED: Non-Formulary Medication 1 Each (Ondansetron 4 MG) PO PRN (21:11)
[2020-04-30] MEDS ORDERED: Acetaminophen/oxyCODONE 325-5 MG Tab PO PRN (21:11)
[2020-04-30] MEDS ORDERED: Nitroglycerin 0.4 MG Tab.SL SL PRN (21:11)
[2020-04-30] MEDS ORDERED: Budesonide 0.5 MG/2 ML Neb Susp INH PRN (21:11)
[2020-04-30] MEDS: Aspirin 81 MG Tab.Chew PO ONE (21:14)
[2020-04-30] MEDS: Enoxaparin 40 MG/0.4 ML Syringe SUBCUT SCH (22:16)
[2020-05-01 07:36] LABS: CHLORIDE,CL 107 mEq/L (98-106); SODIUM,NA 141 mEq/L (136-145)
[2020-05-01 07:39] VITALS: BP 150/70; PULSE 66
[2020-05-01] MEDS ORDERED: Non-Formulary Medication 1 Each (Omeprazole [Omeprazole] 20 MG) PO SCH (08:00)
[2020-05-01] MEDS ORDERED: Furosemide 40 MG Tab PO SCH (08:00)
[2020-05-01] MEDS ORDERED: Gabapentin 300 MG Cap PO SCH ×2 (08:00→14:00)
[2020-05-01] MEDS ORDERED: Non-Formulary Medication 1 Each (Atorvastatin [Lipitor] 40 MG) PO SCH (08:00)
[2020-05-01] MEDS ORDERED: Non-Formulary Medication 1 Each (Budesonide/Formoterol 2 INH) INH SCH (08:00)
[2020-05-01] MEDS ORDERED: Phenytoin 100 MG Cap.ER PO SCH (08:00)
[2020-05-01] MEDS ORDERED: ROPINIROLE HCL 0.5 MG PO SCH (08:00)
[2020-05-01] MEDS: Acetaminophen 325 MG Tab PO ONE (08:06)
[2020-05-01] MEDS: Albuterol/Ipratropium 3.0-0.5 MG/3 ML Neb Soln NEB SCH (09:44)
[2020-05-01] MEDS: Magnesium Chloride 64 MG Tab.ER PO SCH (09:45)
[2020-05-01] MEDS: Aspirin 81 MG Tab.EC PO SCH (09:45)
--- NOTE | 2020-05-01 12:58 | PCM.DCSUM1 ---
Discharge Summary - Hospital Course Free Text/Narrative:: Holli is a 80 year old female who presented to ER with a 2 day history of chest pain. Had taken nitro at home without relief but admitted they were outdated and unsure if would be effected. Was given one nitro in ER and got relief of her discomfort. No shortness of breath, no nausea or diaphoresis. Chest pain was midsternal. HIstory of 3 stents. Normal cardiolyte 2 years ago. Labs in ER were normal. ADmitted for serial enzymes. Diagnosis: Stroke: No Modified [place] Scale: No Symptoms at All Modified [place] Scale Score: 0 - Discharge Data Discharge Date: 05/01/20 Discharge Disposition: Home, Self-Care 01 Condition: Stable - Referral to Home Health Primary Care Physician: Mikael Ennis MD - Discharge Diagnosis/Problem(s) (1) Chest pain at rest SNOMED Code(s): 5602421 ICD Code: R07.9 - CHEST PAIN, UNSPECIFIED Status: Acute Priority: High - Patient Summary/Data Complications: none Hospital Course: Patient doing well this am. Has not had any pain since ER. Eating and drinking well. Ambulating without changes. Enzymes have remained normal. Will discharge home and refill nitro. - Patient Instructions Diet: Usual Diet as Tolerated Activity: As Tolerated - Discharge Plan *PRESCRIPTION DRUG MONITORING PROGRAM REVIEWED*: No *COPY OF PRESCRIPTION DRUG MONITORING REPORT IN PATIENT JIMY: No Home Medications: Home Meds Aspirin [Halfprin] 81 mg PO DAILY 06/21/13 [History] Docusate Sodium [Colace] 200 mg PO BID PRN 06/21/13 [History] Omeprazole 20 mg PO DAILY 06/21/13 [History] Phenytoin Sodium Extended [Dilantin] 100 mg PO BID 06/21/13 [History] Furosemide 40 mg PO DAILY 09/09/14 [History] atorvaSTATin [Lipitor] 40 mg PO DAILY 09/09/14 [History] Ondansetron [Zofran] 4 mg PO Q8H PRN 05/10/15 [History] amLODIPine [Norvasc] 5 mg PO BEDTIME 05/10/15 [History] rOPINIRole HCl [Requip] 0.5 mg PO 0800,1200 10/10/15 [History] Cyanocobalamin (Vitamin B12) [Vitamin B12] 500 mcg PO DAILY 08/02/17 [History] Folic Acid 400 mcg PO DAILY 08/02/17 [History] Potassium 99 mg PO BEDTIME 08/02/17 [History] rOPINIRole HCl [Requip] 1 mg PO BEDTIME 08/02/17 [History] Budesonide [Pulmicort] 1 inh INH BID PRN 08/03/17 [History] Nitroglycerin [Nitrostat] 0.4 mg SL Q5M PRN tab.sl 03/08/18 [Rx] Gabapentin [Neurontin] 300 mg PO 1400 03/10/18 [History] Gabapentin [Neurontin] 600 mg PO BID 03/10/18 [History] Budesonide/Formoterol Fumarate [Symbicort 160-4.5 Mcg Inhaler] 2 inh INH BID 08/03/19 [History] Citalopram Hydrobromide [Celexa] 20 mg PO BEDTIME 08/03/19 [History] Denosumab [Prolia] 1 injection SQ Q6M 08/03/19 [History] traMADol HCl [Tramadol HCl] 50 mg PO Q8H PRN 08/03/19 [History] Magnesium Chloride [Mag-64] 64 mg PO BIDMEALS #30 tab.er 08/07/19 [Rx] Albuterol/Ipratropium [DuoNeb 3.0-0.5 MG/3 ML] 3 ml NEB QID 04/30/20 [History] Calcium Carbonate/Vitamin D3 [Calcium 600-Vit D3 800 Caplet] 1 tab PO TIDAC 04/30/20 [History] oxyCODONE HCl/Acetaminophen [Oxycodone-Acetaminophen 5-325] 1 - 2 tab PO Q6HR PRN 04/30/20 [History] Forms: ED Department Discharge Referrals: Mikael Ennis MD [Primary Care Provider] - (Follow up with Dr. Ennis in one week) - Discharge Summary/Plan Comment DC Time >30 min.: No - General Info Date of Service: 05/01/20 Admission Dx/Problem (Free Text: Chest pain Functional Status: Reports: Pain Controlled, Tolerating Diet, Ambulating - Review of Systems General: Reports: No Symptoms HEENT: Reports: No Symptoms Pulmonary: Reports: No Symptoms Cardiovascular: Reports: No Symptoms Gastrointestinal: Reports: No Symptoms Genitourinary: Reports: No Symptoms Musculoskeletal: Reports: No Symptoms Skin: Reports: No Symptoms Neurological: Reports: No Symptoms - Patient Data Vitals - Most Recent: Last Vital Signs Temp 97.0 F 05/01/20 07:39 Pulse 66 05/01/20 07:39 Resp 16 05/01/20 07:39 BP 150/70 H 05/01/20 07:39 Pulse Ox 98 05/01/20 07:39 Weight - Most Recent: 160 lb I&O - Last 24 hours: Intake & Output 04/30/20 05/01/20 05/01/20 22:59 06:59 14:59 Intake Total 300 Output Total 875 Balance -575 Lab Results - Last 24 hrs: Laboratory Results - last 24 hr 04/30/20 04/30/20 04/30/20 Range/Units 20:01 20:01 20:01 WBC 8.9 (5.0-10.0) 10^3/uL RBC 4.64 (4.00-5.50) 10^6/uL Hgb 13.1 (12.0-16.0) g/dL Hct 41.3 (37.0-47.0) % MCV 89.0 (82.0-94.0) fL MCH 28.2 (27.0-32.0) pg MCHC 31.7 L (33.0-38.0) g/dL RDW Coeff of Mary Ann 13.9 (11.0-15.0) % Plt Count 286 (150-400) 10^3/uL Neut % (Auto) 53.8 (35-85) % Lymph % (Auto) 30.8 (10-55) % [place] % (Auto) 10.3 (0-16) % Eos % (Auto) 4.7 (0-5) % Baso % (Auto) 0.4 (0-3) % Neut # (Auto) 4.79 (1.80-7.00) 10^3/uL Lymph # (Auto) 2.75 (1.00-4.80) 10^3/uL [place] # (Auto) 0.92 H (0.00-0.80) 10^3/uL Eos # (Auto) 0.42 (0.00-0.45) 10^3/uL Baso # (Auto) 0.04 10^3/uL PT 9.8 (9.7-12.3) SEC INR 0.97 (0.92-1.18) Sodium 143 (136-145) mEq/L Potassium 4.0 (3.5-5.0) mEq/L Chloride 108 H (98-106) mEq/L Carbon Dioxide 28 (21-32) mmol/L BUN 20 H (7-18) mg/dL Creatinine 0.8 (0.6-1.0) mg/dL Est Cr Clr Drug Dosing 40.96 mL/min Estimated GFR (MDRD) > 60 (>=60) mL/min Glucose 108 H (75-99) mg/dL Calcium 8.6 (8.4-10.1) mg/dL Total Bilirubin 0.1 (0.0-1.0) mg/dL AST 14 L (15-37) U/L ALT 19 (12-78) U/L Alkaline Phosphatase 101 (46-116) U/L Lactate Dehydrogenase 164 (100-190) U/L Creatine Kinase 62 (21-215) U/L Troponin I < 0.017 (0.00-0.06) ng/mL Total Protein 6.8 (6.4-8.2) g/dL Albumin 3.4 (3.4-5.0) g/dL Lipase 93 (73-393) U/L SARS CoV-2 RNA Rapid LUX (NEGATIVE) 04/30/20 05/01/20 05/01/20 Range/Units 21:05 07:00 07:00 WBC 7.4 (5.0-10.0) 10^3/uL RBC 4.79 (4.00-5.50) 10^6/uL Hgb 13.4 (12.0-16.0) g/dL Hct 42.7 (37.0-47.0) % MCV 89.1 (82.0-94.0) fL MCH 28.0 (27.0-32.0) pg MCHC 31.4 L (33.0-38.0) g/dL RDW Coeff of Mary Ann 13.9 (11.0-15.0) % Plt Count 278 (150-400) 10^3/uL Neut % (Auto) 49.2 (35-85) % Lymph % (Auto) 31.4 (10-55) % [place] % (Auto) 13.1 (0-16) % Eos % (Auto) 5.9 H (0-5) % Baso % (Auto) 0.4 (0-3) % Neut # (Auto) 3.64 (1.80-7.00) 10^3/uL Lymph # (Auto) 2.32 (1.00-4.80) 10^3/uL [place] # (Auto) 0.97 H (0.00-0.80) 10^3/uL Eos # (Auto) 0.44 (0.00-0.45) 10^3/uL Baso # (Auto) 0.03 10^3/uL PT (9.7-12.3) SEC INR (0.92-1.18) Sodium 141 (136-145) mEq/L Potassium 4.0 (3.5-5.0) mEq/L Chloride 107 H (98-106) mEq/L Carbon Dioxide 28 (21-32) mmol/L BUN 14 (7-18) mg/dL Creatinine 0.5 L (0.6-1.0) mg/dL Est Cr Clr Drug Dosing 65.53 mL/min Estimated GFR (MDRD) > 60 (>=60) mL/min Glucose 90 (75-99) mg/dL Calcium 8.5 (8.4-10.1) mg/dL Total Bilirubin 0.1 (0.0-1.0) mg/dL AST 16 (15-37) U/L ALT 19 (12-78) U/L Alkaline Phosphatase 96 (46-116) U/L Lactate Dehydrogenase 209 H (100-190) U/L Creatine Kinase 70 (21-215) U/L Troponin I < 0.017 (0.00-0.06) ng/mL Total Protein 6.6 (6.4-8.2) g/dL Albumin 3.3 L (3.4-5.0) g/dL Lipase (73-393) U/L SARS CoV-2 RNA Rapid LUX Negative (NEGATIVE) Med Orders - Current: Current Medications Discontinued Medications Acetaminophen (Tylenol) 650 mg PO NOW ONE Stop: 05/01/20 07:53 Last Admin: 05/01/20 08:06 Dose: 650 mg Documented by: Albuterol/Ipratropium (Duoneb 3.0-0.5 Mg/3 Ml) 3 ml NEB QIDRT COUNTS INCLUDE 234 BEDS AT THE [facility] Last Admin: 05/01/20 09:44 Dose: Not Given Documented by: Aspirin (Aspirin) 324 mg PO ONETIME ONE Stop: 04/30/20 20:57 Last Admin: 04/30/20 21:14 Dose: 324 mg Documented by: Aspirin (Halfprin) 81 mg PO DAILY COUNTS INCLUDE 234 BEDS AT THE [facility] Last Admin: 05/01/20 09:45 Dose: Not Given Documented by: Budesonide (Pulmicort) 0.5 mg INH BID PRN PRN Reason: Shortness of Breath Docusate Sodium (Colace) 200 mg PO BID PRN PRN Reason: Constipation Enoxaparin Sodium (Lovenox) 40 mg SUBCUT Q24H COUNTS INCLUDE 234 BEDS AT THE [facility] Last Admin: 04/30/20 22:16 Dose: 40 mg Documented by: Furosemide (Lasix) 40 mg PO DAILY COUNTS INCLUDE 234 BEDS AT THE [facility] Gabapentin (Neurontin) 300 mg PO 1400 [place] Gabapentin (Neurontin) 600 mg PO BID COUNTS INCLUDE 234 BEDS AT THE [facility] Magnesium Chloride (Mag-64) 64 mg PO BIDMEALS COUNTS INCLUDE 234 BEDS AT THE [facility] Last Admin: 05/01/20 09:45 Dose: Not Given Documented by: Nitroglycerin (Nitrostat) 0.4 mg SL Q5M PRN PRN Reason: Chest Pain Last Admin: 04/30/20 20:13 Dose: 0.4 mg Documented by: Nitroglycerin (Nitrostat) 0.4 mg SL Q5M PRN PRN Reason: Chest Pain Non-Formulary Medication (Amlodipine [Norvasc]) 5 mg PO BEDTIME COUNTS INCLUDE 234 BEDS AT THE [facility] Non-Formulary Medication (Atorvastatin [Lipitor]) 40 mg PO DAILY COUNTS INCLUDE 234 BEDS AT THE [facility] Non-Formulary Medication (Budesonide/Formoterol) 2 inh INH BID COUNTS INCLUDE 234 BEDS AT THE [facility] Non-Formulary Medication (Citalopram Hydrobromide [Celexa]) 20 mg PO BEDTIME [place] Non-Formulary Medication (Omeprazole [Omeprazole]) 20 mg PO DAILY COUNTS INCLUDE 234 BEDS AT THE [facility] Non-Formulary Medication (Potassium [Potassium]) 99 mg PO BEDTIME [facility] Non-Formulary Medication (Ropinirole Hcl [Requip]) 0.5 mg PO 0800,1200 COUNTS INCLUDE 234 BEDS AT THE [facility] Non-Formulary Medication (Ropinirole Hcl [Requip]) 1 mg PO BEDTIME [facility] Non-Formulary Medication (Ondansetron) 4 mg PO Q8H PRN PRN Reason: Nausea Oxycodone/Acetaminophen (Percocet 325-5 Mg) 1 - 2 tab PO Q4H PRN PRN Reason: Pain Phenytoin Sodium (Phenytoin) 100 mg PO BID [place] Sodium Chloride (Saline Flush) 10 ml FLUSH ASDIRECTED PRN PRN Reason: Keep Vein Open Tramadol HCl (Ultram) 50 mg PO Q8H PRN PRN Reason: Pain - Exam General: Reports: Alert, Oriented HEENT: Reports: Mucous Membr. Moist/[place] Neck: Reports: Supple Lungs: Reports: Clear to Auscultation, Normal Respiratory Effort Cardiovascular: Reports: Regular Rate, Regular Rhythm GI/Abdominal Exam: Normal Bowel Sounds, Soft, Non-Tender Extremities: Normal Inspection, No Pedal Edema Skin: Reports: Warm, Dry Neurological: Reports: No New Focal Deficit
[2020-05-01] MEDS ORDERED: Non-Formulary Medication 1 Each (Citalopram Hydrobromide [Celexa] 20 MG) PO SCH (20:00)
[2020-05-01] MEDS ORDERED: Non-Formulary Medication 1 Each (Potassium [Potassium] 99 MG) PO SCH (20:00)
[2020-05-01] MEDS ORDERED: Non-Formulary Medication 1 Each (Amlodipine [Norvasc] 5 MG) PO SCH (20:00)
[2020-05-01] MEDS ORDERED: Non-Formulary Medication 1 Each (Ropinirole Hcl [Requip] 1 MG) PO SCH (20:00)
== END 2020-05-01 10:11 | disposition home or self-care (01) ==
LOC: CC.ED 19:45 → CC.MS 20:50 → UNDOADMOB 20:50 → CC.MS 21:06
PROVIDERS: ADMIT Physician Assistant Medical; ATTEND Family Medicine
DX: R07.2 Precordial pain (principal); Z79.82 Long term (current) use of aspirin; Z79.899 Other long term (current) drug therapy; Z88.0 Allergy status to penicillin; Z88.2 Allergy status to sulfonamides; Z88.8 Allergy status to other drugs, medicaments and biological substances; Z20.828 Contact with and (suspected) exposure to other viral communicable diseases; I10 Essential (primary) hypertension; E78.00 Pure hypercholesterolemia, unspecified; Z87.891 Personal history of nicotine dependence
CPT/HCPCS: 36415; 71046; 80053; 82550; 83615; 83690; 84484; 85025; 85610; 93005; 93010; 96372; 99217; 99220; 99285-25; A9270-GY; G0378; J1650; U0002

== ENCOUNTER 2021-11-30 12:26 | Emergency (ER) | payer MEDICARE, MEDICAID ==
[2021-11-30 13:09] VITALS: BP 135/75; PULSE 78
[2021-11-30] MEDS: Acetaminophen/HYDROcodone 325-5 MG Tab PO ONE (13:42)
[2021-11-30] MEDS: Take Home: Acetaminophen/HYDROcodone 325-5 MG, 2 Tab Pack PO ONE (14:26)
== END 2021-11-30 15:07 | disposition home or self-care (01) ==
LOC: CC.ED 12:26
DX: S62.102A Fracture of unspecified carpal bone, left wrist, initial encounter for closed fracture (principal); I10 Essential (primary) hypertension; E78.00 Pure hypercholesterolemia, unspecified; J44.9 Chronic obstructive pulmonary disease, unspecified; K21.9 Gastro-esophageal reflux disease without esophagitis; F32.A Depression, unspecified; Z88.0 Allergy status to penicillin; Z88.2 Allergy status to sulfonamides; Z91.018 Allergy to other foods; Z79.899 Other long term (current) drug therapy; Z88.8 Allergy status to other drugs, medicaments and biological substances; Z88.6 Allergy status to analgesic agent; W01.0XXA Fall on same level from slipping, tripping and stumbling without subsequent striking against object, initial encounter; Y92.009 Unspecified place in unspecified non-institutional (private) residence as the place of occurrence of the external cause
CPT/HCPCS: 73090-LT; 73110-LT; 99283; 99283-25; A9270-GY

== ENCOUNTER 2022-04-29 21:02 | Emergency (ER) | payer MEDICARE, MEDICAID ==
[2022-04-29] MEDS ORDERED: Acetaminophen 325 MG Tab PO ONE (22:18)
[2022-04-29 22:26] LABS: PTT,PARTIAL THROMBOPLSTIN TIME 24.3 SEC (23.2-32.3)
[2022-04-29 22:35] LABS: SODIUM,NA 139 mEq/L (136-145)
[2022-04-29 22:36] LABS: CHLORIDE,CL 105 mEq/L (98-106); ESTIMATED GFR 74 mL/min (>=60)
[2022-04-29] MEDS ORDERED: Sodium Chloride 0.9% 10 ML Syringe FLUSH PRN (23:58)
[2022-04-29] MEDS ORDERED: Metoprolol Tartrate 5 MG/5 ML SDV IVPUSH STA (23:59)
[2022-04-30 00:56] VITALS: BP 148/65; PULSE 109
== END 2022-04-30 01:20 ==
LOC: CC.ED 21:02
DX: S00.03XA Contusion of scalp, initial encounter (principal); I21.4 Non-ST elevation (NSTEMI) myocardial infarction; I10 Essential (primary) hypertension; E78.00 Pure hypercholesterolemia, unspecified; J44.9 Chronic obstructive pulmonary disease, unspecified; K21.9 Gastro-esophageal reflux disease without esophagitis; R00.0 Tachycardia, unspecified; Z91.018 Allergy to other foods; Z88.0 Allergy status to penicillin; Z88.2 Allergy status to sulfonamides; Z88.5 Allergy status to narcotic agent; Z88.8 Allergy status to other drugs, medicaments and biological substances; Z79.82 Long term (current) use of aspirin; Z79.899 Other long term (current) drug therapy; W00.0XXA Fall on same level due to ice and snow, initial encounter
CPT/HCPCS: 36415; 70450; 71046; 80053; 84484; 85025; 85610; 85730; 93005; 93010; 96374; 99284; 99285-25; A9270-GY; J3490

== ENCOUNTER 2022-07-12 15:49 | Emergency (ER) | payer MEDICARE, MEDICAID ==
[2022-07-12 15:55] VITALS: BP 140/80; PULSE 100
[2022-07-12] MEDS ORDERED: Ibuprofen 200 MG Tab PO ONE (16:08)
== END 2022-07-12 16:30 | disposition home or self-care (01) ==
LOC: CC.ED 15:49
DX: M25.532 Pain in left wrist (principal); I10 Essential (primary) hypertension; K21.9 Gastro-esophageal reflux disease without esophagitis; J44.9 Chronic obstructive pulmonary disease, unspecified; Z88.0 Allergy status to penicillin; Z88.5 Allergy status to narcotic agent; Z88.8 Allergy status to other drugs, medicaments and biological substances; Z79.82 Long term (current) use of aspirin; Z79.899 Other long term (current) drug therapy; Z87.891 Personal history of nicotine dependence
CPT/HCPCS: 99283; 99284; A9270-GY

== ENCOUNTER 2022-09-18 17:29 | Inpatient (IN) | payer MEDICARE, MEDICAID ==
[2022-09-18] MEDS ORDERED: methylPREDNISolone Sodium Succinate 40 MG/1 ML SDV IVPUSH ONE (18:25)
[2022-09-18] MEDS ORDERED: Azithromycin 500 MG in Sodium Chloride 0.9% 250 ML IV STA (18:25)
[2022-09-18] MEDS ORDERED: cefTRIAXone 1 GM Vial IVPUSH ONE (18:25)
[2022-09-18] MEDS ORDERED: Sodium Chloride 0.9% 1,000 ML IV SCH (18:30)
[2022-09-18] MEDS ORDERED: Albuterol/Ipratropium 3.0-0.5 MG/3 ML Neb Soln NEB ONE (18:50)
[2022-09-18] MEDS ORDERED: Ondansetron 4 MG Tab.DIS PO PRN (19:47)
[2022-09-18] MEDS ORDERED: Enoxaparin 30 MG/0.3 ML Syringe SUBCUT SCH (19:47)
[2022-09-18] MEDS ORDERED: Isosorbide Mononitrate 30 MG Tab.ER PO PRN (19:47)
[2022-09-18] MEDS ORDERED: traMADol 50 MG Tab PO PRN (19:47)
[2022-09-18] MEDS ORDERED: Docusate Sodium 100 MG Cap PO PRN (19:47)
[2022-09-18] MEDS ORDERED: Ondansetron 4 MG/2 ML SDV IV PRN (19:47)
[2022-09-18] MEDS ORDERED: Polyethylene Glycol 3350 Powder 17 GM Packet PO PRN (19:47)
[2022-09-18] MEDS ORDERED: Albuterol/Ipratropium 3.0-0.5 MG/3 ML Neb Soln NEB PRN (19:47)
[2022-09-18] MEDS: Gabapentin 300 MG Cap PO SCH (22:55)
[2022-09-18] MEDS: Potassium Chloride 10 MEQ Tab.ER PO SCH (22:55)
[2022-09-18] MEDS: rOPINIRole 1 MG Tab PO SCH (22:56)
[2022-09-18] MEDS: Phenytoin 100 MG Cap.ER PO SCH (22:56)
[2022-09-18] MEDS: Formoterol/Mometasone 200-5 MCG 8.8 GM Inhaler IH SCH (23:41)
[2022-09-19] MEDS ORDERED: Folic Acid 1 MG Tab PO SCH (08:00)
[2022-09-19] MEDS: Aspirin 81 MG Tab.EC PO SCH (08:04)
[2022-09-19] MEDS: Pantoprazole 40 MG Tab.CR PO SCH (08:05)
[2022-09-19] MEDS: Potassium Chloride 10 MEQ Tab.ER PO SCH ×2 (08:05→16:48)
[2022-09-19] MEDS: atorvaSTATin 20 MG Tab PO SCH (08:06)
[2022-09-19] MEDS: rOPINIRole 1 MG Tab PO SCH ×3 (08:06→20:07)
[2022-09-19] MEDS: Furosemide 40 MG Tab PO SCH (08:07)
[2022-09-19] MEDS: Cyanocobalamin (Vitamin B12) 1,000 MCG Tab PO SCH (08:07)
[2022-09-19] MEDS: Calcium Carbonate/Vitamin D3 1250 MG-5 MCG Tab PO SCH ×3 (08:07→16:46)
[2022-09-19] MEDS: Formoterol/Mometasone 200-5 MCG 8.8 GM Inhaler IH SCH ×2 (08:08→20:06)
[2022-09-19] MEDS: Gabapentin 300 MG Cap PO SCH ×3 (08:08→20:07)
[2022-09-19] MEDS: methylPREDNISolone Sodium Succinate 40 MG/1 ML SDV IVPUSH SCH (08:10)
[2022-09-19] MEDS: Phenytoin 100 MG Cap.ER PO SCH ×2 (08:11→20:07)
[2022-09-19] MEDS ORDERED: Diltiazem 120 MG Cap.CD PO SCH (09:45)
[2022-09-19] MEDS: Lidocaine 5% 700 MG Patch TRDERM SCH (10:14)
[2022-09-19] MEDS ORDERED: Magnesium Sulfate/Water 2 GM in Premix Bag 1 BAG IV ONE (11:38)
[2022-09-19] MEDS: Albuterol/Ipratropium 3.0-0.5 MG/3 ML Neb Soln NEB SCH ×3 (11:39→20:04)
[2022-09-19] MEDS ORDERED: Calcium Carbonate 500 MG Tab.Chew PO ONE (11:41)
[2022-09-19] MEDS ORDERED: Diltiazem 25 MG/5 ML SDV IVPUSH ONE (13:14)
[2022-09-19] MEDS ORDERED: Diltiazem 100 MG in Sodium Chloride 0.9% 100 ML IV SCH (13:45)
[2022-09-19] MEDS: cefTRIAXone 1 GM Vial IVPUSH SCH (20:06)
[2022-09-19] MEDS: Apixaban 5 MG Tab PO SCH (20:07)
[2022-09-19] MEDS: Azithromycin 500 MG in Sodium Chloride 0.9% 250 ML IV SCH (20:31)
[2022-09-20] MEDS: Acetaminophen 325 MG Tab PO PRN ×2 (00:26→14:36)
[2022-09-20] MEDS: rOPINIRole 1 MG Tab PO SCH ×3 (08:03→20:03)
[2022-09-20] MEDS: Albuterol/Ipratropium 3.0-0.5 MG/3 ML Neb Soln NEB SCH ×4 (08:03→20:03)
[2022-09-20] MEDS: Gabapentin 300 MG Cap PO SCH ×3 (08:04→20:01)
[2022-09-20] MEDS: Apixaban 5 MG Tab PO SCH ×2 (08:05→20:01)
[2022-09-20] MEDS: atorvaSTATin 20 MG Tab PO SCH (08:05)
[2022-09-20] MEDS: Aspirin 81 MG Tab.EC PO SCH (08:06)
[2022-09-20] MEDS: Potassium Chloride 10 MEQ Tab.ER PO SCH ×2 (08:06→18:28)
[2022-09-20] MEDS: Furosemide 40 MG Tab PO SCH (08:06)
[2022-09-20] MEDS: Calcium Carbonate/Vitamin D3 1250 MG-5 MCG Tab PO SCH ×3 (08:07→18:29)
[2022-09-20] MEDS: Pantoprazole 40 MG Tab.CR PO SCH (08:12)
[2022-09-20] MEDS: Cyanocobalamin (Vitamin B12) 1,000 MCG Tab PO SCH (08:12)
[2022-09-20] MEDS: Folic Acid 1 MG Tab PO SCH (08:12)
[2022-09-20] MEDS: Formoterol/Mometasone 200-5 MCG 8.8 GM Inhaler IH SCH ×2 (08:13→20:11)
[2022-09-20] MEDS: Phenytoin 100 MG Cap.ER PO SCH ×2 (08:14→20:02)
[2022-09-20] MEDS: methylPREDNISolone Sodium Succinate 40 MG/1 ML SDV IVPUSH SCH (08:15)
[2022-09-20] MEDS: Diltiazem 180 MG Cap.CD PO SCH (08:18)
[2022-09-20] MEDS: Lidocaine 5% 700 MG Patch TRDERM SCH (09:41)
[2022-09-20] MEDS: cefTRIAXone 1 GM Vial IVPUSH SCH (20:03)
[2022-09-20] MEDS: Azithromycin 500 MG in Sodium Chloride 0.9% 250 ML IV SCH (20:12)
[2022-09-21] MEDS: Acetaminophen 325 MG Tab PO PRN (01:38)
[2022-09-21] MEDS: Pantoprazole 40 MG Tab.CR PO SCH (06:29)
[2022-09-21] MEDS: Calcium Carbonate/Vitamin D3 1250 MG-5 MCG Tab PO SCH ×2 (06:30→12:15)
[2022-09-21] MEDS: methylPREDNISolone Sodium Succinate 40 MG/1 ML SDV IVPUSH SCH (07:43)
[2022-09-21] MEDS: Albuterol/Ipratropium 3.0-0.5 MG/3 ML Neb Soln NEB SCH ×3 (07:44→16:04)
[2022-09-21] MEDS: Formoterol/Mometasone 200-5 MCG 8.8 GM Inhaler IH SCH (07:44)
[2022-09-21] MEDS: Folic Acid 1 MG Tab PO SCH (07:45)
[2022-09-21] MEDS: rOPINIRole 1 MG Tab PO SCH ×2 (07:45→12:16)
[2022-09-21] MEDS: Apixaban 5 MG Tab PO SCH (07:46)
[2022-09-21] MEDS: Aspirin 81 MG Tab.EC PO SCH (07:46)
[2022-09-21] MEDS: Cyanocobalamin (Vitamin B12) 1,000 MCG Tab PO SCH (07:46)
[2022-09-21] MEDS: Diltiazem 180 MG Cap.CD PO SCH (07:47)
[2022-09-21] MEDS: Potassium Chloride 10 MEQ Tab.ER PO SCH (07:47)
[2022-09-21] MEDS: Gabapentin 300 MG Cap PO SCH ×2 (07:48→14:04)
[2022-09-21] MEDS: atorvaSTATin 20 MG Tab PO SCH (07:48)
[2022-09-21] MEDS: Phenytoin 100 MG Cap.ER PO SCH (07:49)
[2022-09-21] MEDS: Furosemide 40 MG Tab PO SCH (07:49)
[2022-09-21] MEDS: Lidocaine 5% 700 MG Patch TRDERM SCH (10:37)
[2022-09-21 13:17] VITALS: BP 132/73; PULSE 82
[2022-09-21] MEDS ORDERED: cefTRIAXone 1 GM Vial IVPUSH SCH (16:00)
[2022-09-21] MEDS ORDERED: Take Home: Azithromycin 250 MG, 2 Tab Pack PO SCH (18:00)
== END 2022-09-21 17:21 | disposition home or self-care (01) | DRG 194 ==
LOC: CC.ED 17:29 → UNDOADMOB 19:16 → INTOOBSV 19:16 → OBSVTOIN 19:16 → CC.MS 19:16 → OBSVTOIN 19:22
PROVIDERS: ADMIT Nurse Practitioner; ATTEND Nurse Practitioner
DX: J18.9 Pneumonia, unspecified organism (principal); I50.22 Chronic systolic (congestive) heart failure; J44.0 Chronic obstructive pulmonary disease with (acute) lower respiratory infection; I50.9 Heart failure, unspecified; E78.00 Pure hypercholesterolemia, unspecified; I11.0 Hypertensive heart disease with heart failure; K21.9 Gastro-esophageal reflux disease without esophagitis; F32.A Depression, unspecified; G89.29 Other chronic pain; M54.50 Low back pain, unspecified; E87.6 Hypokalemia; I48.91 Unspecified atrial fibrillation; E88.09 Other disorders of plasma-protein metabolism, not elsewhere classified; Z20.822 Contact with and (suspected) exposure to COVID-19; Z88.2 Allergy status to sulfonamides; Z88.0 Allergy status to penicillin; Z90.89 Acquired absence of other organs; Z98.890 Other specified postprocedural states; Z88.8 Allergy status to other drugs, medicaments and biological substances; Z79.82 Long term (current) use of aspirin; Z79.899 Other long term (current) drug therapy
CPT/HCPCS: 36415; 71045; 80048; 80053; 83605; 83735; 83880; 84484; 85025; 85730; 87040; 87804; 93005; 93010; 94640; 96361; 96365; 96375; 97161-GP; 99223; 99232; 99233; 99238; 99285-25; A9270-GY; J0456; J0696; J1650; J2920; J3475; J3490; J7030; J7050; J7620-GY; U0002

== ENCOUNTER → 2023-06-25 | Day surgery (SDC) | payer MEDICARE, MEDICAID ==
[~2023-06-25] MED LIST changes: -Denosumab 60 MG/1 ML Syringe SUBCUT ONE; -Propofol 200 MG/20 ML SDV IV ONE; +Propofol 200 MG/20 ML SDV ONE
[2023-06-25 10:46] VITALS: BP 150/68; PULSE 72
== END ==
LOC: CC.SDS 08:40
PROVIDERS: ATTEND Family Medicine
DX: K57.30 Diverticulosis of large intestine without perforation or abscess without bleeding (principal); Z79.899 Other long term (current) drug therapy; Z88.2 Allergy status to sulfonamides; Z88.0 Allergy status to penicillin; Z88.8 Allergy status to other drugs, medicaments and biological substances
CPT/HCPCS: J2704; J7120

== ENCOUNTER 2023-07-06 14:30 | Emergency (ER) | payer MEDICARE, MEDICAID ==
[2023-07-06 15:07] LABS: BASOPHILS ABSOLUTE AUTO 0.05 10^3/uL (0.00-0.50); BASOPHILS PERCENT AUTO 0.7 % (0-1); EOSINOPHILS ABSOLUTE AUTO 0.32 10^3/uL (0.00-1.50); EOSINOPHILS PERCENT AUTO 4.5 % (0-6); HEMOGLOBIN 12.9 g/dL (12.0-16.0); IMMATURE GRAN ABSOLUTE AUTO 0.01 10^3/uL (0.00-0.49); IMMATURE GRAN PERCENT AUTO 0.1 % (0.0-4.9); LYMPHOCYTES ABSOLUTE AUTO 3.06 10^3/uL (0.60-5.00); LYMPHOCYTES PERCENT AUTO 42.9 % (24-44); MEAN CORPUSCULAR HEMOGLOBIN 27.5 pg (27.0-32.0); MEAN CORPUSCULAR HGB CONC 31.5 g/dL (32.0-36.0); MEAN CORPUSCULAR VOLUME 87.4 fL (83.0-97.0); MONOCYTES ABSOLUTE AUTO 0.88 10^3/uL (0.00-1.50); MONOCYTES PERCENT AUTO 12.3 % (0-10); NEUTROPHILS ABSOLUTE AUTO 2.82 x10^3/uL (1.80-8.00); NEUTROPHILS PERCENT AUTO 39.5 % (41-71); PLATELET COUNT,PLT 284 10^3/uL (150-400); RED BLOOD CELL COUNT 4.69 x10^6/uL (4.00-5.50); WHITE BLOOD CELL COUNT,WBC 7.1 10^3/uL (4.0-11.0)
[2023-07-06] MEDS ORDERED: Naloxone 2 MG/2 ML Syringe IVPUSH PRN (15:16)
[2023-07-06] MEDS: HYDROmorphone 0.5 MG/0.5 ML Syringe IM ONE (15:30)
[2023-07-06 15:32] LABS: ALANINE AMINOTRANSFERASE,ALT 18 U/L (12-78); ALBUMIN 3.4 g/dL (3.4-5.0); ALKALINE PHOSPHATASE 136 U/L (46-116); ASPARTATE AMNIOTRANSFERASE,AST 17 U/L (15-37); BILIRUBIN TOTAL 0.2 mg/dL (0.0-1.0); BLOOD UREA NITROGEN,BUN 12 mg/dL (7-18); CALCIUM 8.3 mg/dL (8.4-10.1); CARBON DIOXIDE,CO2 27 mmol/L (21-32); CHLORIDE,CL 107 mEq/L (98-106); CREATININE 0.6 mg/dL (0.6-1.0); GLUCOSE RANDOM 87 mg/dL (75-99); PRO B-TYPE NATRIUR PEPT,BNPPRO 604 pg/mL (0-1000); SODIUM,NA 141 mEq/L (136-145)
[2023-07-06 15:42] LABS: C-REACTIVE PROTEIN < 0.50 mg/dL (<=0.50); ESTIMATED GFR 90 mL/min (>=60)
[2023-07-06 17:12] VITALS: BP 170/71; PULSE 72
== END 2023-07-06 16:15 | disposition home or self-care (01) ==
LOC: CC.ED 14:30
DX: J98.4 Other disorders of lung (principal); I10 Essential (primary) hypertension; E78.00 Pure hypercholesterolemia, unspecified; J44.9 Chronic obstructive pulmonary disease, unspecified; Z90.49 Acquired absence of other specified parts of digestive tract; Z90.710 Acquired absence of both cervix and uterus; Z79.82 Long term (current) use of aspirin; Z79.899 Other long term (current) drug therapy; Z88.0 Allergy status to penicillin; Z88.2 Allergy status to sulfonamides; Z88.6 Allergy status to analgesic agent; Z88.8 Allergy status to other drugs, medicaments and biological substances; Z91.018 Allergy to other foods
CPT/HCPCS: 36415; 80053; 83880; 84484; 85025; 86140; 96372; 99284; J1170

== ENCOUNTER 2025-01-01 20:09 | Emergency (ER) | payer MEDICARE, MEDICAID ==
[2025-01-01 21:56] VITALS: BP 135/67; PULSE 77
== END 2025-01-01 21:40 | disposition home or self-care (01) ==
LOC: CC.ED 20:09
DX: S80.01XA Contusion of right knee, initial encounter (principal); E78.00 Pure hypercholesterolemia, unspecified; I10 Essential (primary) hypertension; J44.89 Other specified chronic obstructive pulmonary disease; Z95.5 Presence of coronary angioplasty implant and graft; Z91.018 Allergy to other foods; Z88.0 Allergy status to penicillin; Z88.2 Allergy status to sulfonamides; Z79.899 Other long term (current) drug therapy; Z79.82 Long term (current) use of aspirin; Z79.01 Long term (current) use of anticoagulants; Z79.51 Long term (current) use of inhaled steroids; W18.39XA Other fall on same level, initial encounter; Y93.89 Activity, other specified
CPT/HCPCS: 73700-RT; 99283

== ENCOUNTER 2025-04-28 19:30 | Observation (INO) | payer MEDICARE, MEDICAID ==
[2025-04-28] MEDS ORDERED: Sodium Chloride 0.9% 10 ML Syringe FLUSH PRN ×2 (19:53→20:08)
[2025-04-28 20:16] LABS: BASOPHILS ABSOLUTE AUTO 0.06 10^3/uL (0.00-0.50); BASOPHILS PERCENT AUTO 0.3 % (0-1); EOSINOPHILS ABSOLUTE AUTO 0.17 10^3/uL (0.00-1.50); EOSINOPHILS PERCENT AUTO 0.9 % (0-6); IMMATURE GRAN ABSOLUTE AUTO 0.05 10^3/uL (0.00-0.49); IMMATURE GRAN PERCENT AUTO 0.3 % (0.0-4.9); LYMPHOCYTES ABSOLUTE AUTO 2.87 10^3/uL (0.60-5.00); LYMPHOCYTES PERCENT AUTO 15.0 % (24-44); MONOCYTES ABSOLUTE AUTO 2.68 10^3/uL (0.00-1.50); MONOCYTES PERCENT AUTO 14.0 % (0-10); NEUTROPHILS ABSOLUTE AUTO 13.34 x10^3/uL (1.80-8.00); NEUTROPHILS PERCENT AUTO 69.5 % (41-71); PLATELET COUNT,PLT 298 10^3/uL (150-400); RED BLOOD CELL COUNT 5.32 x10^6/uL (4.00-5.50); WHITE BLOOD CELL COUNT,WBC 19.2 10^3/uL (4.0-11.0)
[2025-04-28 20:20] LABS: APPEARANCE,URINE CLEAR (CLEAR); GLUCOSE,URINE NEGATIVE (NEGATIVE); OCCULT BLOOD,URINE TRACE-INTACT (NEGATIVE)
[2025-04-28 20:29] LABS: ALANINE AMINOTRANSFERASE,ALT 22 U/L (12-78); ASPARTATE AMNIOTRANSFERASE,AST 24 U/L (15-37); BILIRUBIN TOTAL 0.2 mg/dL (0.0-1.0); BLOOD UREA NITROGEN,BUN 11 mg/dL (7-18); CARBON DIOXIDE,CO2 30 mmol/L (21-32); CHLORIDE,CL 103 mEq/L (98-106); CREATINE KINASE,CK 205 U/L (21-215); CREATININE 0.5 mg/dL (0.6-1.0); GLUCOSE RANDOM 121 mg/dL (75-99); POTASSIUM,K 4.1 mEq/L (3.5-5.0); PROTEIN TOTAL,TP 7.3 g/dL (6.4-8.2); SODIUM,NA 143 mEq/L (136-145)
[2025-04-28 20:29] LABS: SQUAMOUS EPITHELIAL CELLS,UR NOT SEEN /HPF (NOT SEEN)
[2025-04-28 20:30] LABS: ESTIMATED GFR 92 mL/min (>=60)
[2025-04-28] MEDS ORDERED: Ondansetron 4 MG Tab.DIS PO PRN (21:57)
[2025-04-28] MEDS ORDERED: Ondansetron 4 MG/2 ML SDV IV PRN (21:57)
[2025-04-29] MEDS ORDERED: Hypromellose 0.3% Ophth Soln 15 ML Bottle EYEBOTH PRN (00:29)
[2025-04-29] MEDS: Cholecalciferol (Vitamin D3) 25 MCG Tab PO SCH (08:00)
[2025-04-29 08:05] LABS: BLOOD UREA NITROGEN,BUN 11.0 mg/dL (7-18); CARBON DIOXIDE,CO2 34.0 mmol/L (21-32); CHLORIDE,CL 103.0 mEq/L (98-106); CREATININE 0.7 mg/dL (0.6-1.0); EST CRCL DRUG DOSING (CG) 42.97 mL/min; GLUCOSE RANDOM 97.0 mg/dL (75-99); POTASSIUM,K 3.8 mEq/L (3.5-5.0); SODIUM,NA 143.0 mEq/L (136-145)
[2025-04-29 08:07] LABS: BASOPHILS ABSOLUTE AUTO 0.05 10^3/uL (0.00-0.50); BASOPHILS PERCENT AUTO 0.4 % (0-1); EOSINOPHILS ABSOLUTE AUTO 0.24 10^3/uL (0.00-1.50); EOSINOPHILS PERCENT AUTO 2.2 % (0-6); IMMATURE GRAN ABSOLUTE AUTO 0.03 10^3/uL (0.00-0.49); IMMATURE GRAN PERCENT AUTO 0.3 % (0.0-4.9); LYMPHOCYTES ABSOLUTE AUTO 2.57 10^3/uL (0.60-5.00); LYMPHOCYTES PERCENT AUTO 23.1 % (24-44); MONOCYTES ABSOLUTE AUTO 1.62 10^3/uL (0.00-1.50); MONOCYTES PERCENT AUTO 14.6 % (0-10); NEUTROPHILS ABSOLUTE AUTO 6.62 x10^3/uL (1.80-8.00); NEUTROPHILS PERCENT AUTO 59.4 % (41-71); PLATELET COUNT,PLT 270 10^3/uL (150-400); RED BLOOD CELL COUNT 4.57 x10^6/uL (4.00-5.50); WHITE BLOOD CELL COUNT,WBC 11.1 10^3/uL (4.0-11.0)
[2025-04-29] MEDS: Phenytoin 100 MG Cap.ER PO SCH ×2 (08:15→20:05)
[2025-04-29 08:17] LABS: ESTIMATED GFR 85.0 mL/min (>=60)
[2025-04-29] MEDS: Calcium Carbonate/Vitamin D3 1250 MG-5 MCG Tab PO SCH (08:19)
[2025-04-29] MEDS: Cyanocobalamin (Vitamin B12) 1,000 MCG Tab PO SCH (08:29)
[2025-04-29] MEDS: Acetaminophen/HYDROcodone 325-5 MG Tab PO PRN (13:44)
[2025-04-29] MEDS: Non-Formulary Medication 1 Each (Budesonide/Formoterol Fumarate [Symbicort 160-4.5 Mcg Inh INH SCH (14:57)
[2025-04-29] MEDS: Diltiazem 180 MG Cap.CD PO SCH (20:06)
[2025-04-30 07:49] LABS: BASOPHILS ABSOLUTE AUTO 0.06 10^3/uL (0.00-0.50); BASOPHILS PERCENT AUTO 0.6 % (0-1); BLOOD UREA NITROGEN,BUN 12.0 mg/dL (7-18); CARBON DIOXIDE,CO2 32.0 mmol/L (21-32); CHLORIDE,CL 103.0 mEq/L (98-106); CREATININE 0.7 mg/dL (0.6-1.0); EOSINOPHILS ABSOLUTE AUTO 0.44 10^3/uL (0.00-1.50); EOSINOPHILS PERCENT AUTO 4.2 % (0-6); EST CRCL DRUG DOSING (CG) 42.97 mL/min; GLUCOSE RANDOM 102.0 mg/dL (75-99); IMMATURE GRAN ABSOLUTE AUTO 0.02 10^3/uL (0.00-0.49); IMMATURE GRAN PERCENT AUTO 0.2 % (0.0-4.9); LYMPHOCYTES ABSOLUTE AUTO 2.49 10^3/uL (0.60-5.00); LYMPHOCYTES PERCENT AUTO 23.9 % (24-44); MONOCYTES ABSOLUTE AUTO 1.39 10^3/uL (0.00-1.50); MONOCYTES PERCENT AUTO 13.3 % (0-10); NEUTROPHILS ABSOLUTE AUTO 6.02 x10^3/uL (1.80-8.00); NEUTROPHILS PERCENT AUTO 57.8 % (41-71); PLATELET COUNT,PLT 266 10^3/uL (150-400); POTASSIUM,K 4.0 mEq/L (3.5-5.0); RED BLOOD CELL COUNT 4.49 x10^6/uL (4.00-5.50); SODIUM,NA 143.0 mEq/L (136-145); WHITE BLOOD CELL COUNT,WBC 10.4 10^3/uL (4.0-11.0)
[2025-04-30 08:01] LABS: ESTIMATED GFR 85.0 mL/min (>=60)
[2025-04-30 12:26] VITALS: PULSE 71
[2025-04-30 12:27] VITALS: BP 133/74
== END 2025-04-30 11:55 | disposition home or self-care (01) ==
LOC: CC.ED 19:30 → CC.MS 21:36
PROVIDERS: ADMIT Nurse Practitioner Family; ATTEND Nurse Practitioner Family
DX: S00.03XA Contusion of scalp, initial encounter (principal); R10.21 Pelvic and perineal pain right side; I10 Essential (primary) hypertension; Z88.8 Allergy status to other drugs, medicaments and biological substances; Z88.2 Allergy status to sulfonamides; Z88.0 Allergy status to penicillin; Z79.01 Long term (current) use of anticoagulants; Z79.82 Long term (current) use of aspirin; Z79.899 Other long term (current) drug therapy; W19.XXXA Unspecified fall, initial encounter
CPT/HCPCS: 36415; 70450; 71045; 72192; 80048; 80053; 81001; 82550; 85025; 86140; 93010; 94640; 96374; 96376; 99223; 99233; 99239; 99285-25; A9270-GY; G0378; J1171